=== PATIENT | female | born 1935 | race American Indian/Alaskan Native ===

== ENCOUNTER 2017-10-15 07:25 | Day surgery (SDC) | payer MEDICARE, BC ==
[2017-10-04 09:18] VITALS: BMI 32.5
[2017-10-15] MEDS ORDERED: Propofol 10 mg/ml Inj (20 ML) ONE (09:48)
[2017-10-15 11:19] VITALS: BP 146/89; PULSE 80; RESP 14; TEMP 97.4; O2SAT 98
== END 2017-10-15 11:52 | disposition home or self-care (01) ==
LOC: ENDO 07:25
PROVIDERS: ATTEND Internal Medicine Gastroenterology
DX: K92.2 Gastrointestinal hemorrhage, unspecified (principal); D12.3 Benign neoplasm of transverse colon; D12.5 Benign neoplasm of sigmoid colon; K57.30 Diverticulosis of large intestine without perforation or abscess without bleeding; K64.8 Other hemorrhoids
CPT/HCPCS: 45381; 45385; 88305; J2001; J2704; J7040

== ENCOUNTER 2018-09-27 15:26 | Emergency (ER) | payer BC, MEDICARE ==
[2018-09-27 15:30] VITALS: RESP 18; BMI 30.4
[2018-09-27] MEDS ORDERED: Sodium Chloride 0.9% 1,000 ML IV STA ×3 (15:46→20:00)
--- NOTE | 2018-09-27 15:53 | ED PDOC ---
Arrival/HPI - General Chief Complaint: Abdominal Pain Time Seen by Provider: 09/27/18 15:26 Historian: Patient - History of Present Illness Narrative History of Present Illness (Text): 09/27/18 15:49 An 82 year old female, whose past medical history includes hypertension, acid reflux and asthma, presents to the ED complaining of lower abdominal pain for the past 4 days. Patient reports associated constipation but that she had a bowel movement today. Patient notes black stools. Patient denies any fevers, chills, headache, dizziness, chest pain, shortness of breath, dyspnea on exertion, cough, nausea, vomiting, diarrhea, back pain, neck pain, or any other complaints. PMD: Dr. Elyssa Rivera Time/Duration: < week (4 days) Symptom Onset: Gradual Symptom Course: Unchanged Activities at Onset: Light Context: Home Past Medical History - Provider Review Nursing Documentation Reviewed: Yes - Tetanus Immunization Tetanus Immunization: Unknown - Cardiac Hx Hypertension: Yes Hx Pacemaker: No - Pulmonary Hx Respiratory Disorders: Yes Hx Asthma: Yes (As a child/young adult) - Neurological Hx Paralysis: No - HEENT Hx HEENT Disorder: Yes (wears eye glass) - Renal Hx Renal Disorder: No - Endocrine/Metabolic Hx Endocrine Disorders: No - Hematological/Oncological Hx Blood Transfusions: No Hx Blood Transfusion Reaction: No - Integumentary Hx Dermatological Disorder: No - Musculoskeletal/Rheumatological Hx Musculoskeletal Disorders: Yes - Gastrointestinal Hx Gastrointestinal Disorders: No - Genitourinary/Gynecological Hx Genitourinary Disorders: No - Psychiatric Hx Emotional Abuse: No Hx Physical Abuse: No Hx Substance Use: No - Anesthesia Hx Anesthesia Reactions: No Hx Malignant Hyperthermia: No - Suicidal Assessment Feels Threatened In Home Enviroment: No Family/Social History - Physician Review Nursing Documentation Reviewed: Yes Family/Social History: Unknown Family HX Smoking Status: Never Smoked Hx Alcohol Use: No Hx Substance Use: No Hx Substance Use Treatment: No Allergies/Home Meds Allergies/Adverse Reactions: Allergies Penicillins Allergy (Severe, Verified 09/28/18 11:39) ANAPHYLAXIS Home Medications: Home Meds Medication Instructions Recorded Confirmed Albuterol Sulfate [Proair Hfa] 0.09 mg IH PRN PRN 06/28/15 09/28/18 Fluticasone/Salmeterol [Advair Hfa 2 puff IH BID 06/28/15 09/28/18 45-21 Mcg Inhaler] Ascorbic Acid [Vitamin C] 500 mg PO DAILY 07/28/15 09/28/18 Cholecalciferol [Vitamin D] 1,000 iu PO DAILY 07/28/15 09/28/18 Psyllium Husk/Aspartame [Metamucil 3.4 gm PO DAILY 07/28/15 09/28/18 Fiber Singles Packet] Telmisartan/Hydrochlorothiazid 1 tab PO QAM 07/28/15 09/28/18 [Telmisartan-Hctz 80-25 mg Tab] Lansoprazole [Prevacid] 30 mg PO DAILY 10/04/17 09/28/18 Review of Systems - Physician Review All systems were reviewed & negative as marked: Yes - Review of Systems Constitutional: absent: Fatigue Eyes: absent: Vision Changes ENT: absent: Hearing Changes Respiratory: absent: SOB, Cough Cardiovascular: absent: Chest Pain Gastrointestinal: Abdominal Pain, Constipation. absent: Nausea, Vomiting Genitourinary Female: absent: Dysuria, Hematuria Musculoskeletal: absent: Back Pain, Neck Pain Skin: absent: Rash Neurological: absent: Headache, Dizziness Endocrine: absent: Diaphoresis Hemo/Lymphatic: absent: Adenopathy Psychiatric: absent: Anxiety, Depression Physical Exam Vital Signs Reviewed: Yes Vital Signs Temp Pulse Resp BP Pulse Ox 09/27/18 15:27 99.2 F 130 H 18 122/68 95 Temperature: Afebrile Blood Pressure: Normal Pulse: Tachycardic Respiratory Rate: Normal Appearance: Positive for: Well-Appearing, Non-Toxic, Comfortable Pain Distress: None Mental Status: Positive for: Alert and Oriented X 3 - Systems Exam Head: Present: Atraumatic, Normocephalic Pupils: Present: PERRL Extroacular Muscles: Present: EOMI Conjunctiva: Present: Normal Mouth: Present: Moist Mucous Membranes Respiratory/Chest: Present: Clear to Auscultation, Good Air Exchange. No: Respiratory Distress, Accessory Muscle Use Cardiovascular: Present: Regular Rate and Rhythm, Normal S1, S2. No: Murmurs Abdomen: Present: Tenderness (diffused tenderness of lower abdomen, greater than upper), Normal Bowel Sounds, Guarding. No: Distention, Peritoneal Signs, Rebound Rectal: Present: Other (Black stools; guaic negative; stove mounter my Scribe) Back: Present: Normal Inspection. No: CVA Tenderness, Midline Tenderness Upper Extremity: Present: Normal Inspection Lower Extremity: Present: Normal Inspection Neurological: Present: GCS=15, CN II-XII Intact, Speech Normal, Motor Func Grossly Intact, Normal Sensory Function Psychiatric: Present: Alert, Oriented x 3, Normal Insight, Normal Concentration Medical Decision Making ED Course and Treatment: 09/27/18 16:07 Impression: An 82 year old female presents to the ED complaining of lower abdominal pain. Differential Diagnosis included but are not limited to: Constipation vs GI Bleed Plan: -- VBG -- CT Abdomen/Pelvis -- EKG -- Labs -- Toradol -- Protonix injection -- IV Fluids -- Reassess and disposition Prior Visits: Notes and results from previous visits were reviewed. Patient was last seen in the emergency department on Progress Notes: EKG: Sinus tachycardia @ 118 bpm, LAD, Qwaves III, no ST elevations 09/27/18 16:55 Rectal exam chaperoned by scribe. WBC elevated at 17. LA normal. 09/27/18 20:20 Case signed out to Dr. Driscoll to f/u CT, reevaluate and disposition. - RAD Interpretation Radiology Orders: 09/27/18 15:46 ABD PELVIS PO & IV CONTRAST [CT] Stat - Scribe Statement The provider has reviewed the documentation as recorded by the Jacobo Gutierrez Provider Scribe Attestation: All medical record entries made by the Scribe were at my direction and personally dictated by me. I have reviewed the chart and agree that the record accurately reflects my personal performance of the history, physical exam, medical decision making, and the department course for this patient. I have also personally directed, reviewed, and agree with the discharge instructions and disposition. Disposition/Present on Arrival - Present on Arrival Any Indicators Present on Arrival: No History of DVT/PE: No History of Uncontrolled Diabetes: No Urinary Catheter: No History of Decub. Ulcer: No History Surgical Site Infection Following: None - Disposition Have Diagnosis and Disposition been Completed?: Yes Diagnosis: Abdominal pain Disposition: HOME/ ROUTINE Disposition Time: 19:00 Patient Problems: Current Active Problems Problem Status Onset ANNA (acute kidney injury) Acute Anemia Acute GI bleed Acute Leukocytosis Acute Right lower quadrant abdominal mass Acute Condition: IMPROVED Discharge Instructions (ExitCare): Acute Abdomen (Belly Pain), Adult (DC) Additional Instructions: SRINATH IRA, thank you for letting us take care of you today. The emergency medical care you received today was directed at your acute symptoms. If you were prescribed any medication, please fill it and take as directed. It may take several days for your symptoms to resolve. Return to the Emergency Department if your symptoms worsen, do not improve, or if you have any other problems. Please contact your doctor or call one of the physicians/clinics you have been referred to that are listed on the Patient Visit Information form that is included in your discharge packet. Bring any paperwork you were given at discharge with you along with any medications you are taking to your follow up visit. Our treatment cannot replace ongoing medical care by a primary care provider outside of the emergency department. Thank you for allowing the [facility] team to be part of your care today. Please take the medication as prescribed. Follow up with Dr. Rivera early next week. You may be referred back to the GI doctor. Please return to the emergency room if you have any concerns. Prescriptions: Ciprofloxacin [Cipro] 500 mg PO BID #14 tab Ibuprofen [Motrin] 600 mg PO Q6 PRN #20 tab PRN Reason: Pain, Moderate (4-7) Metronidazole [Flagyl] 500 mg PO Q8 #21 tablet Referrals: Elyssa Rivera MD [Family Provider] - Follow up with primary Forms: [employer] ([place])
[2018-09-27] MEDS ORDERED: Iohexol 240 (50 ml) ONE (16:18)
[2018-09-27 16:37] LABS: VENOUS BLOOD GAS BASE EXCESS 6.1 mmol/L (0.0-2.0); VENOUS BLOOD GAS PO2 30 mm/Hg (30-55); VENOUS BLOOD PH 7.42 (7.32-7.43)
[2018-09-27 16:39] LABS: BASO # 0.02 K/mm3 (0.0-2.0); BASO % 0.1 % (0.0-3.0); EOS % 0.1 % (1.5-5.0); HEMOGLOBIN 12.1 g/dL (12.0-16.0); LYMPH # 1.1 (1.2-3.4); LYMPH % 6.5 % (22.0-35.0); MEAN CELL VOLUME 92.1 fl (80.0-105.0); MEAN CORPUSCULAR HEMOGLOBIN 30.9 pg (25.0-35.0); MEAN CORPUSCULAR HGB CONC 33.5 g/dl (31.0-37.0); MEAN PLATELET VOLUME 10.6 fl (7.0-11.0); MONO # 0.8 (0.1-0.6); MONO % 4.9 % (1.0-6.0); RBC 3.92 10^6/uL (3.5-6.1); RED CELL DISTRIBUTION WIDTH 13.8 % (11.5-14.5); WHITE BLOOD COUNT 17.1 10^3/uL (4.5-11.0)
[2018-09-27 16:48] LABS: ALB/GLOB RATIO 0.9 (1.1-1.8)
[2018-09-27 16:52] LABS: INR 1.37; PROTHROMBIN TIME 15.2 SECONDS (9.4-12.5)
[2018-09-27 17:00] LABS: PARTIAL THROMBOPLASTIN TIME 37.1 Seconds (26.9-38.3)
[2018-09-27 17:03] LABS: ALBUMIN 3.4 g/dL (3.0-4.8); CALCIUM 8.9 mg/dL (8.4-10.5)
[2018-09-27] MEDS ORDERED: Potassium Chloride 20 mEq ER Tab PO STA (17:06)
[2018-09-27 19:04] VITALS: TEMP 99
[2018-09-27 21:58] VITALS: BP 125/87; PULSE 92; O2SAT 100
--- NOTE | 2018-09-27 22:28 | ED PDOC ---
Physical Exam Vital Signs Temp Pulse Resp BP Pulse Ox 09/27/18 21:40 92 H 18 125/87 100 09/27/18 19:03 99 F 89 18 124/59 L 98 09/27/18 17:26 79 18 125/85 98 09/27/18 15:27 99.2 F 130 H 18 122/68 95 Medical Decision Making ED Course and Treatment: 09/27/18 20:00 Case endorsed to me by Dr. Mar. Pending CT scan Abd/Pelvis, reevaluation, and disposition. 09/27/2018 20:26 Abd/Pelvis CT IMPRESSION: 1. 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 2. Diffuse diverticulosis involving the colon, especially severely involving cecum and ascending colon as well as descending colon and sigmoid. 3. Mild, nonspecific pancolitis. 4. Numerous small lymph nodes in the right lower quadrant. 5. Evidence of an amorphous tissue density in the right lower quadrant, which is centered on the terminal ileum as well as ileocecal valve measures approximately 8 x 5 cm and it has bilobed dumbbell shape appearance; this is suspicious for malignancy. Further evaluation with colonoscopy is recommended. 6. Small fat-containing left inguinal hernia and Fat-containing left Spigelian hernia. 7. Enlarged bulky uterus containing several partially calcified masses consistent with fibroids. 8. Small hiatal hernia. 9. Small pericardial effusion. 10. Consider additional evaluation with CT abdomen and pelvis with IV contrast. Dictator: Rubén Gonzalez MD 09/27/18 21:00 Upon reevaluation, patient is feeling better. Patient will follow-up with Dr. Rivera early next week for possible GI referral. Antibiotics and pain medications prescribed to patient. - Lab Interpretations Lab Results: pO2 30 mm/Hg (30-55) 09/27/18 16:25 VBG pH 7.42 (7.32-7.43) 09/27/18 16:25 VBG pCO2 49.0 (40-60) 09/27/18 16:25 VBG HCO3 31.8 mmol/l (21-28) H 09/27/18 16:25 VBG Total CO2 33.3 mmol.L (22-28) H 09/27/18 16:25 VBG O2 Sat (Calc) 58.8 % (40-65) 09/27/18 16:25 VBG Base Excess 6.1 mmol/L (0.0-2.0) H 09/27/18 16:25 VBG Potassium 3.3 mmol/L (3.6-5.2) L 09/27/18 16:25 Sodium 135.0 mmol/L (132-148) 09/27/18 16:25 Chloride 99.0 mmol/L (98-107) 09/27/18 16:25 Glucose 106 mg/dl (65-105) H 09/27/18 16:25 Lactate 1.2 mmol/L (0.7-2.1) 09/27/18 16:25 FiO2 21.0 % 09/27/18 16:25 PT 15.2 SECONDS (9.4-12.5) H 09/27/18 16:27 INR 1.37 09/27/18 16:27 APTT 37.1 Seconds (26.9-38.3) 09/27/18 16:27 Total Bilirubin 0.9 mg/dL (0.2-1.3) 09/27/18 16:27 AST 28 U/L (14-36) 09/27/18 16:27 ALT 14 U/L (7-56) 09/27/18 16:27 Alkaline Phosphatase 58 U/L (38-126) 09/27/18 16:27 Total Protein 7.0 g/dL (5.8-8.3) 09/27/18 16:27 Albumin 3.4 g/dL (3.0-4.8) 09/27/18 16:27 Globulin 3.6 gm/dL 09/27/18 16:27 Albumin/Globulin Ratio 0.9 (1.1-1.8) L 09/27/18 16:27 Lipase 25 U/L (23-300) 09/27/18 16:27 - RAD Interpretation Radiology Orders: 09/27/18 15:46 ABD & PELVIS PO CONTRAST ONLY [CT] Stat - Medication Orders Current Medication Orders: Discontinued Medications Sodium Chloride (Sodium Chloride 0.9%) 1,000 mls @ 999 mls/hr IV .Q1H1M STA Stop: 09/27/18 16:54 Last Admin: 09/27/18 16:41 Dose: 999 mls/hr eMAR Start Stop Document 09/27/18 16:41 CD (Rec: 09/27/18 16:41 CD [id number]) Intravenous Solution Start Date 09/27/18 Start Time 16:41 End Date 09/27/18 End time 17:42 Total Infusion Time 61 Sodium Chloride (Sodium Chloride 0.9%) 1,000 mls @ 999 mls/hr IV .Q1H1M STA Stop: 09/27/18 21:00 Ketorolac Tromethamine (Toradol) 30 mg IVP STAT STA Stop: 09/27/18 15:47 Last Admin: 09/27/18 16:41 Dose: 30 mg MAR Pain Assessment Document 09/27/18 16:41 CD (Rec: 09/27/18 16:42 CD [email or web address]) Pain Reassessment Is this a pain reassessment? No Sleep Is patient sleeping during reassessment? No Presence of Pain Presence of Pain Yes Pain Scale Used Protocol: PSCALES Pain Scale Used Numeric Description Intensity of Pain at present 7 Acceptable Level of Pain 3 IVP Administration Document 09/27/18 16:41 CD (Rec: 09/27/18 16:42 CD [id number]) Charges for Administration # of IVP Administrations 1 Pantoprazole Sodium (Protonix Inj) 40 mg IVP STAT STA Stop: 09/27/18 15:47 Last Admin: 09/27/18 16:41 Dose: 40 mg IVP Administration Document 09/27/18 16:41 CD (Rec: 09/27/18 16:41 CD [email or web address]) Charges for Administration # of IVP Administrations 1 Potassium Chloride (K-Dur 20 Meq Er Tab) 40 meq PO STAT STA Stop: 09/27/18 17:07 Last Admin: 09/27/18 17:19 Dose: 40 meq - Scribe Statement The provider has reviewed the documentation as recorded by the Jacobo Silva Provider Scribe Attestation: All medical record entries made by the Jacobo were at my direction and personally dictated by me. I have reviewed the chart and agree that the record accurately reflects my personal performance of the history, physical exam, medical decision making, and the department course for this patient. I have also personally directed, reviewed, and agree with the discharge instructions and disposition. Disposition/Present on Arrival - Present on Arrival Any Indicators Present on Arrival: No History of DVT/PE: No History of Uncontrolled Diabetes: No Urinary Catheter: No History of Decub. Ulcer: No History Surgical Site Infection Following: None - Disposition Have Diagnosis and Disposition been Completed?: Yes Diagnosis: Abdominal pain Disposition: HOME/ ROUTINE Disposition Time: 20:55 Condition: IMPROVED Discharge Instructions (ExitCare): Acute Abdomen (Belly Pain), Adult (DC) Additional Instructions: SRINATH ROTH, thank you for letting us take care of you today. The emergency medical care you received today was directed at your acute symptoms. If you were prescribed any medication, please fill it and take as directed. It may take several days for your symptoms to resolve. Return to the Emergency Department if your symptoms worsen, do not improve, or if you have any other problems. Please contact your doctor or call one of the physicians/clinics you have been referred to that are listed on the Patient Visit Information form that is included in your discharge packet. Bring any paperwork you were given at discharge with you along with any medications you are taking to your follow up visit. Our treatment cannot replace ongoing medical care by a primary care provider outside of the emergency department. Thank you for allowing the [facility] team to be part of your care today. Please take the medication as prescribed. Follow up with Dr. Rivera early next week. You may be referred back to the GI doctor. Please return to the emergency room if you have any concerns. Prescriptions: Ciprofloxacin [Cipro] 500 mg PO BID #14 tab Ibuprofen [Motrin] 600 mg PO Q6 PRN #20 tab PRN Reason: Pain, Moderate (4-7) Metronidazole [Flagyl] 500 mg PO Q8 #21 tablet Referrals: Elyssa Rivera MD [Family Provider] - Follow up with primary Forms: [employer] ([place])
--- NOTE | 2018-09-28 09:21 | CT ---
Date of service: 09/27/2018 PROCEDURE: CT Abdomen and Pelvis with contrast HISTORY: constip r/o obstruction r/o gi bleed COMPARISON: None available. TECHNIQUE: CT scan of the abdomen and pelvis was performed after administration of intravenous contrast. Oral contrast was administered. Coronal and sagittal reformatted images were obtained. Radiation dose: Total exam DLP = 873.03 mGy-cm. This CT exam was performed using one or more of the following dose reduction techniques: Automated exposure control, adjustment of the mA and/or kV according to patient size, and/or use of iterative reconstruction technique. FINDINGS: LOWER THORAX: The visualized lungs are clear. Mild cardiomegaly and small pericardial effusion LIVER: Normal in size. No ductal dilatation. There is a nonspecific coarse calcification in the right hepatic lobe. GALLBLADDER AND BILE DUCTS: Well distended. No calcified gallstones, wall thickening or pericholecystic fluid. PANCREAS: Normal in size. No gross lesion or ductal dilatation. SPLEEN: Normal in size and appearance. 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 KIDNEYS AND URETERS: Normal in size. No hydronephrosis or hydronephrosis. There is nonspecific perinephric fat stranding. VASCULATURE: No aortic aneurysm. There are advanced aortic atherosclerotic calcifications present. BOWEL: The small bowel loops are normal in caliber. There is extensive colonic diverticulosis worse in the left hemicolon without CT evidence for acute diverticulitis. No bowel wall thickening or obstruction. APPENDIX: The proximal appendix is normal in caliber however the entire appendix could not be definitely delineated. There is abnormal soft tissue at the base of the cecum and in the right lower quadrant extending to the right adnexa. This measures approximately 8.3 x 4.3 cm. There is significant fat stranding and inflammatory changes in the right lower quadrant PERITONEUM: No free fluid. No free air. LYMPH NODES: There are multiple subcentimeter lymph nodes in the right lower quadrant. BLADDER: Well distended and normal in appearance. REPRODUCTIVE: The uterus is anteverted and enlarged. There are multiple noncalcified and calcified fibroids with a dominant 3.8 x 3.2 cm calcified subserosal anterior wall fibroid. BONES: No acute fracture. Advanced multilevel degenerative disc disease. OTHER FINDINGS: There is a small fat containing inguinal hernia. There is a small hiatal hernia. There is a left spigelian hernia. IMPRESSION: 1. The proximal appendix is identified and normal in caliber however the entire appendix is not well delineated. There is abnormal soft tissue at the base of the cecum in the right lower quadrant and extending to the right adnexa with extensive surrounding inflammatory changes. Findings are nonspecific and could be related to acute appendicitis and phlegmon, right cecal/appendiceal malignancy and tubo-ovarian pathology including neoplasm. Correlation with pelvic ultrasound is recommended. 2. Fibroid uterus. 3. Extensive colonic diverticulosis without CT evidence for acute diverticulitis. A preliminary report was provided by [employer]. The final report is tagged to the PA review folder.
--- NOTE | 2018-09-29 07:15 | CARD ---
APPROVED REPORT Date of service: 09/27/2018 EKG Measurement Heart [id number] <Conclusion> Sinus tachycardia Possible Left atrial enlargement Left axis deviation Inferior infarct, age undetermined Abnormal ECG
== END 2018-09-27 21:40 | disposition home or self-care (01) ==
LOC: ED 15:26
DX: R10.9 Unspecified abdominal pain (principal); I10 Essential (primary) hypertension; K21.9 Gastro-esophageal reflux disease without esophagitis; J45.909 Unspecified asthma, uncomplicated
CPT/HCPCS: 74176; 80053; 82803; 83690; 83735; 85025; 85610; 85730; 93005; 96361; 96374; 96375; 99284; C9113; J1885; J7030; Q9966

== ENCOUNTER 2018-09-28 11:26 | Inpatient (IN) | payer MEDICARE ==
--- NOTE | 2018-09-28 11:31 | ED PDOC ---
Arrival/HPI - General Chief Complaint: Abdominal Pain Time Seen by Provider: 09/28/18 11:26 Historian: Patient - History of Present Illness Narrative History of Present Illness (Text): 09/28/18 11:33 82 year old female with PMH of hypertension, GERD, and asthma presents to the ED complaining of lower abdominal pain for the past 5 days. Patient was seen in emergency department yesterday, and discharged home on Flagyl. CT abd/pelvis showed pancolitis and was negative for appendicitis at that time per [facility]. Official CT read this morning showed a right sided mass/appendicitis and recommended pelvic ultrasound for further evaluation. Patient states she feels better than yesterday but is still having intermittent, generalized abdominal pain. Patient notes black stools. Last BM yesterday in ED. Last colonoscopy September 2017. Patient denies any fevers, chills, headache, dizziness, chest pain, shortness of breath, dyspnea on exertion, cough, nausea, vomiting, diarrhea, back pain, neck pain, or any other complaints. PMD: Dr. Elyssa Rivera GI: Dr. Campos Past Medical History - Provider Review Nursing Documentation Reviewed: Yes - Tetanus Immunization Tetanus Immunization: Unknown - Cardiac Hx Hypertension: Yes Hx Pacemaker: No - Pulmonary Hx Respiratory Disorders: Yes Hx Asthma: Yes (As a child/young adult) - Neurological Hx Paralysis: No - HEENT Hx HEENT Disorder: Yes (wears eye glass) - Renal Hx Renal Disorder: No - Endocrine/Metabolic Hx Endocrine Disorders: No - Hematological/Oncological Hx Blood Transfusions: No Hx Blood Transfusion Reaction: No - Integumentary Hx Dermatological Disorder: No - Musculoskeletal/Rheumatological Hx Musculoskeletal Disorders: Yes - Gastrointestinal Hx Gastrointestinal Disorders: No - Genitourinary/Gynecological Hx Genitourinary Disorders: No - Psychiatric Hx Emotional Abuse: No Hx Physical Abuse: No Hx Substance Use: No - Anesthesia Hx Anesthesia Reactions: No Hx Malignant Hyperthermia: No - Suicidal Assessment Feels Threatened In Home Enviroment: No Family/Social History - Physician Review Nursing Documentation Reviewed: Yes Family/Social History: No Known Family HX Smoking Status: Never Smoked Hx Alcohol Use: No Hx Substance Use: No Hx Substance Use Treatment: No Allergies/Home Meds Allergies/Adverse Reactions: Allergies Penicillins Allergy (Severe, Verified 09/28/18 11:39) ANAPHYLAXIS Home Medications: Home Meds Medication Instructions Recorded Confirmed Albuterol Sulfate [Proair Hfa] 0.09 mg IH PRN PRN 06/28/15 09/28/18 Fluticasone/Salmeterol [Advair Hfa 2 puff IH BID 06/28/15 09/28/18 45-21 Mcg Inhaler] Ascorbic Acid [Vitamin C] 500 mg PO DAILY 07/28/15 09/28/18 Cholecalciferol [Vitamin D] 1,000 iu PO DAILY 07/28/15 09/28/18 Psyllium Husk/Aspartame [Metamucil 3.4 gm PO DAILY 07/28/15 09/28/18 Fiber Singles Packet] Telmisartan/Hydrochlorothiazid 1 tab PO QAM 07/28/15 09/28/18 [Telmisartan-Hctz 80-25 mg Tab] Lansoprazole [Prevacid] 30 mg PO DAILY 10/04/17 09/28/18 Review of Systems - Review of Systems Constitutional: Normal. absent: Fevers Eyes: Normal. absent: Vision Changes ENT: Normal. absent: Sore Throat, Sinus Congestion Respiratory: Normal. absent: SOB, Cough Cardiovascular: Normal. absent: Chest Pain, Palpitations, Syncope Gastrointestinal: Abdominal Pain, Appetite Changes. absent: Stool Changes, Nausea, Vomiting Genitourinary Female: Normal. absent: Dysuria, Frequency, Vaginal Bleeding, Vaginal Discharge Musculoskeletal: Normal. absent: Back Pain, Neck Pain Skin: Normal. absent: Rash Neurological: Normal. absent: Headache, Dizziness Physical Exam Vital Signs Reviewed: Yes Temperature: Afebrile Blood Pressure: Normal Pulse: Tachycardic Respiratory Rate: Normal Appearance: Positive for: Well-Appearing, Non-Toxic, Comfortable Pain Distress: None Mental Status: Positive for: Alert and Oriented X 3 - Systems Exam Head: Present: Atraumatic, Normocephalic Pupils: Present: PERRL Extroacular Muscles: Present: EOMI Conjunctiva: Present: Normal Mouth: Present: Moist Mucous Membranes Neck: Present: Normal Range of Motion. No: Meningeal Signs Respiratory/Chest: Present: Clear to Auscultation, Good Air Exchange. No: Respiratory Distress, Accessory Muscle Use Cardiovascular: Present: Normal S1, S2, Peripheal Pulses Present, Tachycardic Abdomen: Present: Tenderness (generalized, worse epigastric and RLQ), Normal Bowel Sounds. No: Distention, Peritoneal Signs Rectal: Present: Occult Blood, Melena, Hemorrhoids (nonthrombosed), Normal Rectal Tone. No: Rectal Tenderness, Gross Blood Back: Present: Normal Inspection. No: CVA Tenderness Upper Extremity: Present: Normal Inspection, Normal ROM, NORMAL PULSES, Neurovascularly Intact, Capillary Refill < 2s. No: Cyanosis, Edema, Temperature Abnormalties Lower Extremity: Present: Normal Inspection, NORMAL PULSES, Normal ROM, Neurovascularly Intact, Capillary Refill < 2 s. No: Edema, Temperature Abnormalties Neurological: Present: GCS=15, CN II-XII Intact, Speech Normal, Motor Func Grossly Intact, Normal Sensory Function, Gait Normal Skin: Present: Warm, Dry, Normal Color. No: Rashes Psychiatric: Present: Alert, Oriented x 3, Normal Insight, Normal Concentration, Normal Affect, Normal Mood Medical Decision Making ED Course and Treatment: CT Abd/Pelvis with PO contrast from 09/27/18 - FINDINGS: LOWER THORAX: The visualized lungs are clear. Mild cardiomegaly and small pericardial effusion LIVER: Normal in size. No ductal dilatation. There is a nonspecific coarse calcification in the right hepatic lobe. GALLBLADDER AND BILE DUCTS: Well distended. No calcified gallstones, wall thickening or pericholecystic fluid. PANCREAS: Normal in size. No gross lesion or ductal dilatation. SPLEEN: Normal in size and appearance. 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 KIDNEYS AND URETERS: Normal in size. No hydronephrosis or hydronephrosis. There is nonspecific perinephric fat stranding. VASCULATURE: No aortic aneurysm. There are advanced aortic atherosclerotic calcifications present. BOWEL: The small bowel loops are normal in caliber. There is extensive colonic div erticulosis worse in the left hemicolon without CT evidence for acute diverticulitis. No bowel wall thickening or obstruction. APPENDIX: The proximal appendix is normal in caliber however the entire appendix could not be definitely delineated. There is abnormal soft tissue at the base of the cecum and in the right lower quadrant extending to the right adnexa. This measures approximately 8.3 x 4.3 cm. There is significant fat stranding and inflammatory changes in the right lower quadrant PERITONEUM: No free fluid. No free air. LYMPH NODES: There are multiple subcentimeter lymph nodes in the right lower quadrant. BLADDER: Well distended and normal in appearance. REPRODUCTIVE: The uterus is anteverted and enlarged. There are multiple noncalcified and calcified fibroids with a dominant 3.8 x 3.2 cm calcified subserosal anterior wall fibroid. BONES: No acute fracture. Advanced multilevel degenerative disc disease. OTHER FINDINGS: There is a small fat containing inguinal hernia. There is a small hiatal hernia. There is a left spigelian hernia. IMPRESSION: 1. The proximal appendix is identified and normal in caliber however the entire appendix is not well delineated. There is abnormal soft tissue at the base of the cecum in the right lower quadrant and extending to the right adnexa with extensive surrounding inflammatory changes. Findings are nonspecific and could be related to acute appendicitis and phlegmon, right cecal/appendiceal malignancy and tubo-ovarian pathology including neoplasm. Correlation with pelvic ultrasound is recommended. 2. Fibroid uterus. 3. Extensive colonic diverticulosis without CT evidence for acute diverticulitis. Initial Plan: * Labs * UA * Transvaginal US * Surgical Consult 12:11 Spoke with surgical scheduler who will come to emergency department and evaluate patient under Dr. Garrido. 12:21 Bloodwork reviewed. VBG and CMP stable from yesterday, CBC shows decrease in WBC from 17 to 14. 12:[address] Garcia, admitting for Dr. Rivera who accepted patient for inpatient admission with diagnosis of ANNA, RLQ mass, Leukocytosis. Requests Dr. Garrido for surgical consult. Pending urine, US and CXR. 13:30 Ultrasound shows fibroids but no visible ovarian mass. CXR unremarkable. 13:35 hemoccult POSITIVE on rectal exam. Dark brown stool. No rectal tenderness, normal tone. Nonthrombosed hemorrhoids noted. Call placed to update Dr. Garcia. Pt upgraded to telemetry. H/H trending down compared to yesterday's visit. Pt continues to be mildly tachycardic. 09/27/18: 12.1/36.1 09/28/18: 11.4/34.8 - Lab Interpretations Lab Results: 09/28/18 11:54 09/28/18 11:54 Lab Results 09/28/18 13:37: Urine Color Yellow, Urine Appearance Clear, Urine pH 6.0, Ur S pecific Winifred 1.015, Urine Protein Trace H, Urine Glucose (UA) Negative, Urine Ketones Negative, Urine Blood Trace-lysed H, Urine Nitrate Negative, Urine Bilirubin Negative, Urine Urobilinogen 0.2, Ur Leukocyte Esterase Trace H, Urine RBC 0 - 2, Urine WBC 0 - 2, Ur Epithelial Cells 1 - 3, Urine Bacteria Small 09/28/18 11:54: Sodium 136, Chloride 102, Potassium 3.9, Carbon Dioxide 28, Anion Gap 11, BUN 21, Creatinine 1.4 H, Est GFR ( Amer) 43, Est GFR (Non- Af Amer) 36, Random Glucose 98, Calcium 8.5, Total Bilirubin 0.9, AST 27, ALT 12, Alkaline Phosphatase 61, Troponin I < 0.01, Total Protein 6.7, Albumin 3.2, Globulin 3.5, Albumin/Globulin Ratio 0.9 L, Lipase 28 09/28/18 11:54: PT 16.4 H, INR 1.45, APTT 37.8 09/28/18 11:54: WBC 14.3 H, RBC 3.75, Hgb 11.4 L, Hct 34.8 L, MCV 92.8, MCH 30.4, MCHC 32.8, RDW 13.7, Plt Count 297, MPV 10.6, Neut % (Auto) 89.8 H, Lymph % (Auto) 5.3 L, [place] % (Auto) 4.6, Eos % (Auto) 0.2 L, Baso % (Auto) 0.1, Lymph # (Auto) 0.8 L, [place] # (Auto) 0.7 H, Eos # (Auto) 0.0, Baso # (Auto) 0.02, Absolute Neuts (auto) 12.79 H 09/28/18 11:50: pO2 26 L, VBG pH 7.37, VBG pCO2 47.0, VBG HCO3 27.2, VBG Total CO2 28.6 H, VBG O2 Sat (Calc) 47.6, VBG Base Excess 1.3, VBG Potassium 3.8, Sodium 135.0, Chloride 103.0, Glucose 98, Lactate 1.2, FiO2 21.0, Venous Blood Potassium 3.8 I have reviewed the lab results: Yes - RAD Interpretation Narrative RAD Interpretations (Text): 09/28/18 13:37 CXR: FINDINGS: LUNGS: The lungs are well inflated and clear. PLEURA: No pleural effusions or pneumothorax. CARDIOVASCULAR: The heart is normal in size. There are aortic atherosclerotic calcifications present. OSSEOUS STRUCTURES: Within normal limits for the patient's age. VISUALIZED UPPER ABDOMEN: Normal. OTHER FINDINGS: None. IMPRESSION: No active pulmonary disease. Transvaginal US: FINDINGS: UTERUS: Measures 7.3 x 2.9 x 4.0 cm. Anteverted and normal in size. There is a 1.8 x 1.2 x 1.9 cm anterior wall submucosal fibroid and 1.9 x 1.0 x 0.9 cm partially calcified fundal fibroid. ENDOMETRIUM: Measures 5.0 mm in diameter. Unremarkable. CERVIX: No cervical abnormality identified. RIGHT OVARY: Measures 4.3 x 1.9 x 2.0 cm. No solid mass. Normal flow. LEFT OVARY: Measures 2.69 x 1.69 x 2.5 cm. No solid mass. Normal flow. FREE FLUID: No significant free fluid noted. OTHER FINDINGS: None. IMPRESSION: Fibroid uterus with a dominant 1.9 cm submucosal anterior wall fibroid. No evidence for ovarian cyst or mass. Lumber Driver: Radiologist Disposition/Present on Arrival - Present on Arrival Any Indicators Present on Arrival: No History of DVT/PE: No History of Uncontrolled Diabetes: No Urinary Catheter: No History of Decub. Ulcer: No History Surgical Site Infection Following: None - Disposition Have Diagnosis and Disposition been Completed?: Yes Diagnosis: ANNA (acute kidney injury), Leukocytosis, GI bleed, Right lower quadrant abdominal mass, Anemia Disposition: HOSPITALIZED Disposition Time: 12:55 Patient Plan: Admission Patient Problems: Current Active Problems Problem Status Onset ANNA (acute kidney injury) Acute Anemia Acute GI bleed Acute Leukocytosis Acute Right lower quadrant abdominal mass Acute Condition: STABLE
[2018-09-28 11:43] VITALS: BMI 31.3
[2018-09-28] MEDS ORDERED: Sodium Chloride 0.9% 1,000 ML IV SCH (11:45)
[2018-09-28] MEDS ORDERED: Sodium Chloride 0.9% 1,000 ML IV STA ×2 (11:45→13:12)
[2018-09-28 11:59] LABS: VENOUS BLOOD GAS BASE EXCESS 1.3 mmol/L (0.0-2.0); VENOUS BLOOD GAS PO2 26 mm/Hg (30-55); VENOUS BLOOD PH 7.37 (7.32-7.43)
[2018-09-28 12:08] LABS: BASO # 0.02 K/mm3 (0.0-2.0); BASO % 0.1 % (0.0-3.0); EOS % 0.2 % (1.5-5.0); HEMOGLOBIN 11.4 g/dL (12.0-16.0); LYMPH # 0.8 (1.2-3.4); LYMPH % 5.3 % (22.0-35.0); MEAN CELL VOLUME 92.8 fl (80.0-105.0); MEAN CORPUSCULAR HEMOGLOBIN 30.4 pg (25.0-35.0); MEAN CORPUSCULAR HGB CONC 32.8 g/dl (31.0-37.0); MEAN PLATELET VOLUME 10.6 fl (7.0-11.0); MONO # 0.7 (0.1-0.6); MONO % 4.6 % (1.0-6.0); RBC 3.75 10^6/uL (3.5-6.1); RED CELL DISTRIBUTION WIDTH 13.7 % (11.5-14.5); WHITE BLOOD COUNT 14.3 10^3/uL (4.5-11.0)
[2018-09-28 12:20] LABS: ALB/GLOB RATIO 0.9 (1.1-1.8); ALBUMIN 3.2 g/dL (3.0-4.8); ALT/SGPT 12 U/L (7-56); AST/SGOT 27 U/L (14-36); BLOOD UREA NITROGEN 21 mg/dL (7-21); CALCIUM 8.5 mg/dL (8.4-10.5); GFR NON-AFRICAN AMERICAN 36; LIPASE 28 U/L (23-300)
[2018-09-28 12:24] LABS: INR 1.45; PARTIAL THROMBOPLASTIN TIME 37.8 Seconds (26.9-38.3); PROTHROMBIN TIME 16.4 SECONDS (9.4-12.5)
[2018-09-28 12:32] LABS: TROPONIN I < 0.01 ng/mL
--- NOTE | 2018-09-28 12:38 | CP.PCM.CON ---
<Dillan Mccoy D - Last Filed: 09/28/18 13:01> History of Present Illness - History of Present Illness History of Present Illness: SURGERY CONSULT NOTE FOR DR. GARRIDO Reason: Abnormal CT findings 82F presents with abdominal pain which started 5 days ago. 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 Her pain she says is not worse and is currently tolerable. She was called back to hospital because in-house hospital read of CT scan found new findings from overnight read. Patient states she has never had this pain before in the past, she denies nausea, vomiting, fevers or chills. She admits to constipation prior which has resolved. She states her stools have been dark colored recently. She has a history of GI bleed last year which she had colonoscopy for that found two polyps in the sigmoid and transverse colon both tubular adenoma on pathology. PMH: HTN, GERD, Asthma PSH: Breast biospies Social: denies tobacco, alcohol or illicit drug use Allergies: Penicillins Past Patient History - Tetanus Immunizations Tetanus Immunization: Unknown - Past Social History Smoking Status: Never Smoked - CARDIAC Hx Hypertension: Yes Hx Pacemaker: No - PULMONARY Hx Respiratory Disorders: Yes Hx Asthma: Yes (As a child/young adult) - NEUROLOGICAL Hx Paralysis: No - HEENT Hx HEENT Problems: Yes (wears eye glass) - RENAL Hx Chronic Kidney Disease: No - ENDOCRINE/METABOLIC Hx Endocrine Disorders: No - HEMATOLOGICAL/ONCOLOGICAL Hx Blood Transfusions: No Hx Blood Transfusion Reaction: No - INTEGUMENTARY Hx Dermatological Problems: No - MUSCULOSKELETAL/RHEUMATOLOGICAL Hx Musculoskeletal Disorders: Yes - GASTROINTESTINAL Hx Gastrointestinal Disorders: No - GENITOURINARY/GYNECOLOGICAL Hx Genitourinary Disorders: No - PSYCHIATRIC Hx Emotional Abuse: No Hx Physical Abuse: No Hx Substance Use: No - SURGICAL HISTORY Hx Surgeries: Yes - ANESTHESIA Hx Anesthesia Reactions: No Hx Malignant Hyperthermia: No Meds Allergies/Adverse Reactions: Allergies Allergy/AdvReac Type Severity Reaction Status Date / Time Penicillins Allergy Severe ANAPHYLAXIS Verified 09/28/18 11:39 - Medications Medications: Current Medications Acetaminophen (Tylenol 325mg Tab) 650 mg PO STAT STA Stop: 09/28/18 12:38 Sodium Chloride (Sodium Chloride 0.9%) 1,000 mls @ 150 mls/hr IV .Q6H40M [facility] Last Admin: 09/28/18 11:57 Dose: 150 mls/hr Physical Exam - Constitutional Appears: Non-toxic, No Acute Distress - Eye Exam Eye Exam: EOMI, PERRL - ENT Exam ENT Exam: Mucous Membranes Moist - Respiratory Exam Respiratory Exam: Clear to Auscultation Bilateral, NORMAL BREATHING PATTERN - Cardiovascular Exam Cardiovascular Exam: REGULAR RHYTHM, +S1, +S2 - GI/Abdominal Exam GI & Abdominal Exam: Soft, Tenderness (mild/moderate in RLQ). absent: Distended, Firm, Guarding, Rebound, Rigid - Extremities Exam Extremities exam: Negative for: pedal edema, tenderness - Neurological Exam Neurological exam: Alert, Oriented x3 - Psychiatric Exam Psychiatric exam: Normal Affect, Normal Mood - Skin Skin Exam: Dry, Intact, Normal Color, Warm Results - Vital Signs Recent Vital Signs: Last Vital Signs Temp 98.7 F 09/28/18 11:40 Pulse 102 H 09/28/18 12:15 Resp 17 09/28/18 12:15 BP 132/64 09/28/18 12:15 Pulse Ox 98 09/28/18 12:15 - Labs Result Diagrams: 09/28/18 11:54 09/28/18 11:54 Labs: Laboratory Results - last 24 hr 09/28/18 09/28/18 09/28/18 11:50 11:54 11:54 WBC 14.3 H RBC 3.75 Hgb 11.4 L Hct 34.8 L MCV 92.8 MCH 30.4 MCHC 32.8 RDW 13.7 Plt Count 297 MPV 10.6 Neut % (Auto) 89.8 H Lymph % (Auto) 5.3 L [place] % (Auto) 4.6 Eos % (Auto) 0.2 L Baso % (Auto) 0.1 Lymph # (Auto) 0.8 L [place] # (Auto) 0.7 H Eos # (Auto) 0.0 Baso # (Auto) 0.02 Absolute Neuts (auto) 12.79 H PT 16.4 H INR 1.45 APTT 37.8 pO2 26 L VBG pH 7.37 VBG pCO2 47.0 VBG HCO3 27.2 VBG Total CO2 28.6 H VBG O2 Sat (Calc) 47.6 VBG Base Excess 1.3 VBG Potassium 3.8 Sodium 135.0 Chloride 103.0 Glucose 98 Lactate 1.2 FiO2 21.0 Potassium Carbon Dioxide Anion Gap BUN Creatinine Est GFR ( Amer) Est GFR (Non-Af Amer) Random Glucose Calcium Total Bilirubin AST ALT Alkaline Phosphatase Troponin I Total Protein Albumin Globulin Albumin/Globulin Ratio Lipase Venous Blood Potassium 3.8 09/28/18 11:54 WBC RBC Hgb Hct MCV MCH MCHC RDW Plt Count MPV Neut % (Auto) Lymph % (Auto) [place] % (Auto) Eos % (Auto) Baso % (Auto) Lymph # (Auto) [place] # (Auto) Eos # (Auto) Baso # (Auto) Absolute Neuts (auto) PT INR APTT pO2 VBG pH VBG pCO2 VBG HCO3 VBG Total CO2 VBG O2 Sat (Calc) VBG Base Excess VBG Potassium Sodium 136 Chloride 102 Glucose Lactate FiO2 Potassium 3.9 Carbon Dioxide 28 Anion Gap 11 BUN 21 Creatinine 1.4 H Est GFR ( Amer) 43 Est GFR (Non-Af Amer) 36 Random Glucose 98 Calcium 8.5 Total Bilirubin 0.9 AST 27 ALT 12 Alkaline Phosphatase 61 Troponin I < 0.01 Total Protein 6.7 Albumin 3.2 Globulin 3.5 Albumin/Globulin Ratio 0.9 L Lipase 28 Venous Blood Potassium Assessment & Plan - Assessment and Plan (Free Text) Assessment: 82F with abdominal pain 2/2 nonspecific mass in the right lower quadrant Plan: - NPO - IVF - Pain control - F/u Pelvis ultrasound - F/u UA - Patient may require GI consult, colonoscopy - Further recs will discuss with Dr. Radhika Mccoy, PGY3 <Chaz Garrido - Last Filed: 10/02/18 19:34> Meds - Medications Medications: Current Medications Acetaminophen (Tylenol 325mg Tab) 650 mg PO Q6H PRN PRN Reason: Fever >100.4 F Albuterol/Ipratropium (Duoneb 3 Mg/0.5 Mg (3 Ml) Ud) 3 ml IH [id number] PRN PRN Reason: Shortness of Breath Last Admin: 10/02/18 16:27 Dose: 3 ml Ascorbic Acid (Vitamin C 500 Mg Tab) 500 mg PO DAILY [facility] Last Admin: 10/02/18 10:51 Dose: 500 mg Cholecalciferol (Vitamin D) 1,000 intlu PO DAILY [facility] Last Admin: 10/02/18 10:51 Dose: 1,000 intlu Docusate Sodium (Colace) 100 mg PO DAILY [facility] Last Admin: 10/02/18 10:51 Dose: 100 mg Hydrochlorothiazide (Hydrodiuril) 25 mg PO DAILY [facility] Last Admin: 10/02/18 10:51 Dose: 25 mg Meropenem (Merrem Iv 1 Gm Premix) 1 gm in 50 mls @ 100 mls/hr IVPB Q12 FELIX; Protocol Stop: 10/07/18 22:01 Last Admin: 10/02/18 10:51 Dose: 100 mls/hr Losartan Potassium (Cozaar) 25 mg PO DAILY [facility] Last Admin: 10/02/18 10:51 Dose: 25 mg Metoprolol Tartrate (Lopressor) 5 mg IVP Q6H PRN PRN Reason: HR >110 Last Admin: 10/02/18 10:52 Dose: 5 mg Ondansetron HCl (Zofran Inj) 4 mg IVP Q6H PRN PRN Reason: Nausea/Vomiting Results - Vital Signs Recent Vital Signs: Last Vital Signs Temp 97.6 F 10/02/18 16:42 Pulse 101 H 10/02/18 18:00 Resp 20 10/02/18 16:42 BP 132/71 10/02/18 16:42 Pulse Ox 98 10/02/18 16:42 - Labs Result Diagrams: 10/01/18 07:45 10/01/18 07:45 Assessment & Plan - Assessment and Plan (Free Text) Plan: Patient was seen, evaluated and examined by me at the bedside. I agree with assessment and plan as stated in the resident's note.
[2018-09-28] MEDS ORDERED: HYDROmorphone 0.5 mg/0.5 ml ISec IVP PRN (13:12)
--- NOTE | 2018-09-28 13:27 | RAD ---
Date of service: 09/28/2018 HISTORY: abd pain COMPARISON: 10/04/2013 FINDINGS: LUNGS: The lungs are well inflated and clear. PLEURA: No pleural effusions or pneumothorax. CARDIOVASCULAR: The heart is normal in size. There are aortic atherosclerotic calcifications present. OSSEOUS STRUCTURES: Within normal limits for the patient's age. VISUALIZED UPPER ABDOMEN: Normal. OTHER FINDINGS: None. IMPRESSION: No active pulmonary disease.
[2018-09-28 13:45] LABS: URINE BILIRUBIN NEGATIVE (NEGATIVE); URINE BLOOD TRACE-LYSED (NEGATIVE); URINE GLUCOSE (UA) NEGATIVE (NEGATIVE); URINE LEUKOCYTE ESTERASE TRACE Leu/uL (NEGATIVE); URINE PROTEIN TRACE mg/dL (<30 mg/dL); URINE UROBILINOGEN 0.2 E.U./dL (<1 E.U./dL)
[2018-09-28 13:46] LABS: URINE APPEARANCE CLEAR (CLEAR); URINE COLOR YELLOW (YELLOW)
[2018-09-28 13:56] LABS: URINE RBC 0 - 2 /hpf (0-2); URINE WBC 0 - 2 /hpf (0-6)
[2018-09-28 13:57] LABS: URINE BACTERIA SMALL /hpf
--- NOTE | 2018-09-28 14:00 | US ---
Date of service: 09/28/2018 HISTORY: followup, RLQ mass COMPARISON: None available. TECHNIQUE: Transvaginal pelvic ultrasound was performed. FINDINGS: UTERUS: Measures 7.3 x 2.9 x 4.0 cm. Anteverted and normal in size. There is a 1.8 x 1.2 x 1.9 cm anterior wall submucosal fibroid and 1.9 x 1.0 x 0.9 cm partially calcified fundal fibroid. ENDOMETRIUM: Measures 5.0 mm in diameter. Unremarkable. CERVIX: No cervical abnormality identified. RIGHT OVARY: Measures 4.3 x 1.9 x 2.0 cm. No solid mass. Normal flow. LEFT OVARY: Measures 2.69 x 1.69 x 2.5 cm. No solid mass. Normal flow. FREE FLUID: No significant free fluid noted. OTHER FINDINGS: None. IMPRESSION: Fibroid uterus with a dominant 1.9 cm submucosal anterior wall fibroid. No evidence for ovarian cyst or mass.
[2018-09-28] MEDS: Sodium Chloride 0.9% 1,000 ML IV SCH ×2 (17:48→20:10)
[2018-09-28] MEDS: Meropenem IV 1 gm in NS 1 GM/50 ML BAG IVPB SCH (21:40)
[2018-09-29] MEDS: Sodium Chloride 0.9% 1,000 ML IV SCH ×3 (05:19→10:25)
[2018-09-29 06:36] LABS: HEMOGLOBIN 10.5 g/dL (12.0-16.0); MEAN CELL VOLUME 93.2 fl (80.0-105.0); MEAN CORPUSCULAR HEMOGLOBIN 29.7 pg (25.0-35.0); MEAN CORPUSCULAR HGB CONC 31.8 g/dl (31.0-37.0); MEAN PLATELET VOLUME 10.8 fl (7.0-11.0); RBC 3.54 10^6/uL (3.5-6.1); RED CELL DISTRIBUTION WIDTH 13.9 % (11.5-14.5); WHITE BLOOD COUNT 12.3 10^3/uL (4.5-11.0)
[2018-09-29 07:19] LABS: ALB/GLOB RATIO 0.9 (1.1-1.8); ALBUMIN 3.1 g/dL (3.0-4.8); CALCIUM 8.6 mg/dL (8.4-10.5)
--- NOTE | 2018-09-29 08:46 | CP.PCM.PN ---
<Sidney Jules - Last Filed: 09/29/18 08:43> Subjective - Date & Time of Evaluation Date of Evaluation: 09/29/18 Time of Evaluation: 08:43 - Subjective Subjective: PGY1 General Surgery Progress Note for Dr. Garrido Patient seen and evaluated at bedside this morning. No acute events overnight. No new complaints. Patient reports her pain resolved. Patient otherwise denies fever, chills, nausea, vomiting, chest pain, shortness of breath, numbness/tingling, and/or headache. Patient currently NPO and on IVFs. Objective - Vital Signs/Intake and Output Vital Signs (last 24 hours): Temp Pulse Resp BP Pulse Ox 98.5 F 117 H 18 151/75 H 95 09/29/18 06:00 09/29/18 06:00 09/29/18 06:00 09/29/18 06:00 09/29/18 06:00 Intake and Output: 09/29/18 09/29/18 06:59 18:59 Intake Total 1030 Output Total 3 Balance 1027 - Medications Medications: Current Medications Docusate Sodium (Colace) 100 mg PO DAILY [facility] Last Admin: 09/28/18 13:41 Dose: 100 mg Hydromorphone HCl (Dilaudid) 0.5 mg IVP Q6H PRN PRN Reason: Pain, severe (8-10) Meropenem (Merrem Iv 1 Gm Premix) 1 gm in 50 mls @ 100 mls/hr IVPB Q12 [facility]; Protocol Stop: 10/07/18 22:01 Last Admin: 09/28/18 21:40 Dose: 100 mls/hr Sodium Chloride (Sodium Chloride 0.9%) 1,000 mls @ 75 mls/hr IV .[id number] [facility] Pantoprazole Sodium (Protonix Inj) 40 mg IVP DAILY [facility] Last Admin: 09/28/18 13:41 Dose: 40 mg - Labs Labs: 09/29/18 06:00 09/29/18 06:00 PT 16.4 SECONDS (9.4-12.5) H 09/28/18 11:54 INR 1.45 09/28/18 11:54 APTT 37.8 Seconds (26.9-38.3) 09/28/18 11:54 - Additional Findings Additional findings: - Constitutional Appears: Non-toxic, No Acute Distress - Eye Exam Eye Exam: EOMI, PERRL - ENT Exam ENT Exam: Mucous Membranes Moist - Respiratory Exam Respiratory Exam: Clear to Auscultation Bilateral, NORMAL BREATHING PATTERN - Cardiovascular Exam Cardiovascular Exam: REGULAR RHYTHM, +S1, +S2 - GI/Abdominal Exam GI & Abdominal Exam: Soft. absent: Tenderness, Distended, Firm, Guarding, Rebound, Rigid - Extremities Exam Extremities exam: Negative for: pedal edema, tenderness - Neurological Exam Neurological exam: Alert, Oriented x3 - Psychiatric Exam Psychiatric exam: Normal Affect, Normal Mood - Skin Skin Exam: Dry, Intact, Normal Color, Warm Assessment and Plan - Assessment and Plan (Free Text) Assessment: 82F with abdominal pain 2/2 nonspecific mass in the right lower quadrant Plan: - Currently NPO; pending Dental Coordinator consult and f/u GI recommendations - Continue IVF - Pain control - TVUS: Fibroid uterus with dominant 1.9 submucosal anterior wall fibroid; no evidence for ovarian cyst or mass - Abnormal UA; asymptomatic; Continue Merrem IV x10 days; per ID orders - Further recs will discuss with Dr. Radhika Jules PGY1 <Chaz Garrido - Last Filed: 10/02/18 19:32> Objective - Vital Signs/Intake and Output Vital Signs (last 24 hours): Temp Pulse Resp BP Pulse Ox 97.6 F 101 H 20 132/71 98 10/02/18 16:42 10/02/18 18:00 10/02/18 16:42 10/02/18 16:42 10/02/18 16:42 - Medications Medications: Current Medications Acetaminophen (Tylenol 325mg Tab) 650 mg PO Q6H PRN PRN Reason: Fever >100.4 F Albuterol/Ipratropium (Duoneb 3 Mg/0.5 Mg (3 Ml) Ud) 3 ml IH [id number] PRN PRN Reason: Shortness of Breath Last Admin: 10/02/18 16:27 Dose: 3 ml Ascorbic Acid (Vitamin C 500 Mg Tab) 500 mg PO DAILY [facility] Last Admin: 10/02/18 10:51 Dose: 500 mg Cholecalciferol (Vitamin D) 1,000 intlu PO DAILY [facility] Last Admin: 10/02/18 10:51 Dose: 1,000 intlu Docusate Sodium (Colace) 100 mg PO DAILY [facility] Last Admin: 10/02/18 10:51 Dose: 100 mg Hydrochlorothiazide (Hydrodiuril) 25 mg PO DAILY [facility] Last Admin: 10/02/18 10:51 Dose: 25 mg Meropenem (Merrem Iv 1 Gm Premix) 1 gm in 50 mls @ 100 mls/hr IVPB Q12 [facility]; Protocol Stop: 10/07/18 22:01 Last Admin: 10/02/18 10:51 Dose: 100 mls/hr Losartan Potassium (Cozaar) 25 mg PO DAILY [facility] Last Admin: 10/02/18 10:51 Dose: 25 mg Metoprolol Tartrate (Lopressor) 5 mg IVP Q6H PRN PRN Reason: HR >110 Last Admin: 10/02/18 10:52 Dose: 5 mg Ondansetron HCl (Zofran Inj) 4 mg IVP Q6H PRN PRN Reason: Nausea/Vomiting - Labs Labs: 10/01/18 07:45 10/01/18 07:45 PT 16.4 SECONDS (9.4-12.5) H 09/28/18 11:54 INR 1.45 09/28/18 11:54 APTT 37.8 Seconds (26.9-38.3) 09/28/18 11:54 Assessment and Plan - Assessment and Plan (Free Text) Plan: Patient was seen, evaluated and examined by me at the bedside. I agree with assessment and plan as stated in the resident's note.
--- NOTE | 2018-09-29 09:02 | CP.PCM.CON ---
<Pamela Vallesil - Last Filed: 09/29/18 16:44> History of Present Illness - History of Present Illness History of Present Illness: Uziel Valles- Internal Medicine Resident-Consult Note on Behalf of Dr. Campos Subjective: CC: Lower abdominal pain HPI: Patient is a 82 year old female with a past medical history of GERD, asthma, diverticulosis, internal hemorrhoids, and colonic polyps who was admitted for evaluation and treatment of abdominal pain which started 6 days ago with no specific provoking event. 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 She was called back to hospital because in-house hospital read of CT scan found new findings. GI team was consulted because patient reported dark stools. Patient seen and examined at bedside. No acute events since admission. Offers no new complaints at this time. States abdominal pain has resolved. States she has not experienced a bowel movement since Saturday (2 days prior). Denies nausea, vomiting, diarrhea, bright red blood per rectum, and change in stool caliber. Further denies fever, chills, chest pain, SOB, and urinary symptoms. PMHx: HTN, GERD, Asthma PSHx: Breast biospies Allergies: Penicillins Social: denies tobacco, alcohol or illicit drug use Family History: non-contributory PMD: Dr. Elyssa Rivera Medications: please see MAR Physical Examination: - Constitutional Appears: Non-toxic, No Acute Distress - Eye Exam Eye Exam: EOMI - ENT Exam ENT Exam: Mucous Membranes Moist - Respiratory Exam Respiratory Exam: Clear to Auscultation Bilateral, NORMAL BREATHING PATTERN - Cardiovascular Exam Cardiovascular Exam: Tachycardia, +S1, +S2 - GI/Abdominal Exam GI & Abdominal Exam: Soft, non-tender. absent: Distended, Firm, Guarding, Rebound, Rigid - Rectal Exam Rectal Exam: completed in ED Present: Occult Blood, Melena, Hemorrhoids (nonthrombosed), Normal Rectal Tone. No: Rectal Tenderness, Gross Blood - Extremities Exam Extremities exam: Negative for: pedal edema, tenderness - Neurological Exam Neurological exam: Alert, Oriented x3 - Psychiatric Exam Psychiatric exam: Normal Affect, Normal Mood - Skin Skin Exam: Dry, Intact, Normal Color, Warm Assessment and Plan: Patient is a 82 year old female with a past medical history of GERD, asthma, diverticulosis, internal hemorrhoids, and colonic polyps who was admitted for evaluation and treatment of abdominal pain. Questionable GI bleed Cecal Mass Imaging Studies Reviewed: 10/15/2017 colonoscopy revealed diverticulosis of the entire examined colon, bleeding internal hemorrhoids, one 8mm polyp in the transverse colon and one 5mm polyp in the sigmoid colon. Both tubular adenoma on pathology. 09/27/2018 CT abdomen and pelvis with oral and IV contrast-1. The proximal appendix is identified and normal in caliber however the entire appendix is not well delineated. There is abnormal soft tissue at the base of the cecum in the right lower quadrant and extending to the right adnexa with extensive surrounding inflammatory changes. 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 2. Fibroid uterus. 3. Extensive colonic diverticulosis without CT evidence for acute diverticulitis - start clear liquid diet - start protonix 40mg IV q12 - c/w IVF NS @75cc/hr - c/w abx meropenem 1 gram IV q12 - c/w pain control 0.5mg IV q6h prn pain - F/u Pelvis ultrasound - F/u UA - MRI pelvis with and without contrast ordered and pending Patient case discussed with and plan approved by attending physician, Dr. Campos. Past Patient History - Tetanus Immunizations Tetanus Immunization: Unknown - Past Social History Smoking Status: Never Smoked - CARDIAC Hx Hypertension: Yes Hx Pacemaker: No - PULMONARY Hx Respiratory Disorders: Yes Hx Asthma: Yes (As a child/young adult) - NEUROLOGICAL Hx Paralysis: No - HEENT Hx HEENT Problems: Yes (wears eye glass) - RENAL Hx Chronic Kidney Disease: No - ENDOCRINE/METABOLIC Hx Endocrine Disorders: No - HEMATOLOGICAL/ONCOLOGICAL Hx Blood Transfusions: No Hx Blood Transfusion Reaction: No - INTEGUMENTARY Hx Dermatological Problems: No - MUSCULOSKELETAL/RHEUMATOLOGICAL Hx Musculoskeletal Disorders: Yes - GASTROINTESTINAL Hx Gastrointestinal Disorders: No - GENITOURINARY/GYNECOLOGICAL Hx Genitourinary Disorders: No - PSYCHIATRIC Hx Emotional Abuse: No Hx Physical Abuse: No Hx Substance Use: No - SURGICAL HISTORY Hx Surgeries: Yes - ANESTHESIA Hx Anesthesia Reactions: No Hx Malignant Hyperthermia: No Meds Allergies/Adverse Reactions: Allergies Allergy/AdvReac Type Severity Reaction Status Date / Time Penicillins Allergy Severe ANAPHYLAXIS Verified 09/28/18 11:39 - Medications Medications: Current Medications Docusate Sodium (Colace) 100 mg PO DAILY [facility] Last Admin: 09/28/18 13:41 Dose: 100 mg Hydromorphone HCl (Dilaudid) 0.5 mg IVP Q6H PRN PRN Reason: Pain, severe (8-10) Meropenem (Merrem Iv 1 Gm Premix) 1 gm in 50 mls @ 100 mls/hr IVPB Q12 [facility]; Protocol Stop: 10/07/18 22:01 Last Admin: 09/28/18 21:40 Dose: 100 mls/hr Sodium Chloride (Sodium Chloride 0.9%) 1,000 mls @ 75 mls/hr IV .[id number] [facility] Pantoprazole Sodium (Protonix Inj) 40 mg IVP DAILY [facility] Last Admin: 09/28/18 13:41 Dose: 40 mg Results - Vital Signs Recent Vital Signs: Last Vital Signs Temp 98.5 F 09/29/18 06:00 Pulse 117 H 09/29/18 06:00 Resp 18 09/29/18 06:00 BP 151/75 H 09/29/18 06:00 Pulse Ox 95 09/29/18 06:00 - Labs Result Diagrams: 09/29/18 06:00 09/29/18 06:00 Labs: Laboratory Results - last 24 hr 09/28/18 09/28/18 09/28/18 11:50 11:54 11:54 WBC 14.3 H RBC 3.75 Hgb 11.4 L Hct 34.8 L MCV 92.8 MCH 30.4 MCHC 32.8 RDW 13.7 Plt Count 297 MPV 10.6 Neut % (Auto) 89.8 H Lymph % (Auto) 5.3 L Sampson % (Auto) 4.6 Eos % (Auto) 0.2 L Baso % (Auto) 0.1 Lymph # (Auto) 0.8 L Sampson # (Auto) 0.7 H Eos # (Auto) 0.0 Baso # (Auto) 0.02 Absolute Neuts (auto) 12.79 H PT 16.4 H INR 1.45 APTT 37.8 pO2 26 L VBG pH 7.37 VBG pCO2 47.0 VBG HCO3 27.2 VBG Total CO2 28.6 H VBG O2 Sat (Calc) 47.6 VBG Base Excess 1.3 VBG Potassium 3.8 Sodium 135.0 Chloride 103.0 Glucose 98 Lactate 1.2 FiO2 21.0 Potassium Carbon Dioxide Anion Gap BUN Creatinine Est GFR ( Amer) Est GFR (Non-Af Amer) Random Glucose Calcium Magnesium Total Bilirubin AST ALT Alkaline Phosphatase Troponin I Total Protein Albumin Globulin Albumin/Globulin Ratio Lipase Venous Blood Potassium 3.8 Urine Color Urine Appearance Urine pH Ur Specific [place] Urine Protein Urine Glucose (UA) Urine Ketones Urine Blood Urine Nitrate Urine Bilirubin Urine Urobilinogen Ur Leukocyte Esterase Urine RBC Urine WBC Ur Epithelial Cells Urine Bacteria 09/28/18 09/28/18 09/29/18 11:54 13:37 06:00 WBC 12.3 H RBC 3.54 Hgb 10.5 L Hct 33.0 L MCV 93.2 MCH 29.7 MCHC 31.8 RDW 13.9 Plt Count 299 MPV 10.8 Neut % (Auto) Lymph % (Auto) Sampson % (Auto) Eos % (Auto) Baso % (Auto) Lymph # (Auto) Sampson # (Auto) Eos # (Auto) Baso # (Auto) Absolute Neuts (auto) PT INR APTT pO2 VBG pH VBG pCO2 VBG HCO3 VBG Total CO2 VBG O2 Sat (Calc) VBG Base Excess VBG Potassium Sodium 136 Chloride 102 Glucose Lactate FiO2 Potassium 3.9 Carbon Dioxide 28 Anion Gap 11 BUN 21 Creatinine 1.4 H Est GFR ( Amer) 43 Est GFR (Non-Af Amer) 36 Random Glucose 98 Calcium 8.5 Magnesium Total Bilirubin 0.9 AST 27 ALT 12 Alkaline Phosphatase 61 Troponin I < 0.01 Total Protein 6.7 Albumin 3.2 Globulin 3.5 Albumin/Globulin Ratio 0.9 L Lipase 28 Venous Blood Potassium Urine Color Yellow Urine Appearance Clear Urine pH 6.0 Ur Specific [place] 1.015 Urine Protein Trace H Urine Glucose (UA) Negative Urine Ketones Negative Urine Blood Trace-lysed H Urine Nitrate Negative Urine Bilirubin Negative Urine Urobilinogen 0.2 Ur Leukocyte Esterase Trace H Urine RBC 0 - 2 Urine WBC 0 - 2 Ur Epithelial Cells 1 - 3 Urine Bacteria Small 09/29/18 06:00 WBC RBC Hgb Hct MCV MCH MCHC RDW Plt Count MPV Neut % (Auto) Lymph % (Auto) Sampson % (Auto) Eos % (Auto) Baso % (Auto) Lymph # (Auto) Sampson # (Auto) Eos # (Auto) Baso # (Auto) Absolute Neuts (auto) PT INR APTT pO2 VBG pH VBG pCO2 VBG HCO3 VBG Total CO2 VBG O2 Sat (Calc) VBG Base Excess VBG Potassium Sodium 139 Chloride 105 Glucose Lactate FiO2 Potassium 3.6 Carbon Dioxide 25 Anion Gap 13 BUN 14 Creatinine 1.2 Est GFR ( Amer) 52 Est GFR (Non-Af Amer) 43 Random Glucose 77 Calcium 8.6 Magnesium 2.1 Total Bilirubin 0.6 AST 34 ALT 13 Alkaline Phosphatase 67 Troponin I Total Protein 6.4 Albumin 3.1 Globulin 3.3 Albumin/Globulin Ratio 0.9 L Lipase Venous Blood Potassium Urine Color Urine Appearance Urine pH Ur Specific [place] Urine Protein Urine Glucose (UA) Urine Ketones Urine Blood Urine Nitrate Urine Bilirubin Urine Urobilinogen Ur Leukocyte Esterase Urine RBC Urine WBC Ur Epithelial Cells Urine Bacteria <Chase Campos V - Last Filed: 09/29/18 20:39> Meds - Medications Medications: Current Medications Acetaminophen (Tylenol 325mg Tab) 650 mg PO Q6H PRN PRN Reason: Fever >100.4 F Albuterol/Ipratropium (Duoneb 3 Mg/0.5 Mg (3 Ml) Ud) 3 ml IH [id number] PRN PRN Reason: Shortness of Breath Last Admin: 09/29/18 12:25 Dose: 3 ml Ascorbic Acid (Vitamin C 500 Mg Tab) 500 mg PO DAILY [facility] Cholecalciferol (Vitamin D) 1,000 intlu PO DAILY [facility] Docusate Sodium (Colace) 100 mg PO DAILY [facility] Last Admin: 09/29/18 10:24 Dose: 100 mg Hydromorphone HCl (Dilaudid) 0.5 mg IVP Q6H PRN PRN Reason: Pain, severe (8-10) Meropenem (Merrem Iv 1 Gm Premix) 1 gm in 50 mls @ 100 mls/hr IVPB Q12 [facility]; Protocol Stop: 10/07/18 22:01 Last Admin: 09/29/18 10:24 Dose: 100 mls/hr Sodium Chloride (Sodium Chloride 0.9%) 1,000 mls @ 75 mls/hr IV .[id number] [facility] Last Admin: 09/29/18 10:25 Dose: 75 mls/hr Metoprolol Tartrate (Lopressor) 5 mg IVP Q6H PRN PRN Reason: HR >110 Last Admin: 09/29/18 18:45 Dose: 5 mg Pantoprazole Sodium (Protonix Inj) 40 mg IVP Q12 [facility] Last Admin: 09/29/18 17:01 Dose: 40 mg Results - Vital Signs Recent Vital Signs: Last Vital Signs Temp 98.5 F 09/29/18 06:00 Pulse 123 H 09/29/18 18:45 Resp 22 09/29/18 18:17 BP 168/84 H 09/29/18 18:45 Pulse Ox 95 09/29/18 18:17 - Labs Result Diagrams: 09/29/18 06:00 09/29/18 06:00 Labs: Laboratory Results - last 24 hr 09/29/18 09/29/18 06:00 06:00 WBC 12.3 H RBC 3.54 Hgb 10.5 L Hct 33.0 L MCV 93.2 MCH 29.7 MCHC 31.8 RDW 13.9 Plt Count 299 MPV 10.8 Sodium 139 Potassium 3.6 Chloride 105 Carbon Dioxide 25 Anion Gap 13 BUN 14 Creatinine 1.2 Est GFR ( Amer) 52 Est GFR (Non-Af Amer) 43 Random Glucose 77 Calcium 8.6 Magnesium 2.1 Total Bilirubin 0.6 AST 34 ALT 13 Alkaline Phosphatase 67 Total Protein 6.4 Albumin 3.1 Globulin 3.3 Albumin/Globulin Ratio 0.9 L Attending/Attestation - Attestation I have personally seen and examined this patient.: Yes I have fully participated in the care of the patient.: Yes I have reviewed all pertinent clinical information: Yes Notes (Text): The patient was seen and evaluated here earlier along with the resident. This is an addendum to the GI consultation report dictated by the resident. Imaging studies were reviewed. Etiology for this mass lesion is unclear. Inflammatory versus neoplastic to be considered previous cath the colonoscopy findings were reviewed. Cecum appeared unremarkable in the previous colonoscopies. It is reasonable to consider MRI to further evaluate. Discussed with the patient at length. Continue the antibiotics as per ID. Thank you Dr. Cat for allowing us to participate in the care of the patient. We will continue to closely follow-up her care and suggest further recommendations based on the clinical course. 09/29/18 20:37
--- NOTE | 2018-09-29 09:16 | CARD ---
APPROVED REPORT Date of service: 09/28/2018 EKG Measurement Heart [id number] <Conclusion> Sinus tachycardia Possible Left atrial enlargement Left anterior fascicular block Inferior infarct, age undetermined Cannot rule out Anterior infarct, age undetermined Abnormal ECG
[2018-09-29] MEDS: Meropenem IV 1 gm in NS 1 GM/50 ML BAG IVPB SCH ×2 (10:24→22:34)
[2018-09-29] MEDS: Albuterol-Ipratrop 3 mg / 0.5 (3 ml) UD IH PRN ×2 (12:25→20:51)
--- NOTE | 2018-09-29 12:26 | CP.PCM.CON ---
<Casper Meyer - Last Filed: 09/29/18 16:57> History of Present Illness - History of Present Illness History of Present Illness: Infectious disease consult note: 82-year-old female with past medical history of hypertension, GERD, asthma, diverticulosis presents with abdominal pain. Patient states that her abdominal pain started 6 days ago and the pain has gotten progressively worse. Patient has been to the emergency room and a CT of the abdomen was performed showing pancolitis, patient was discharged home with p.o. antibiotics. With the official read by radiology CT scan was positive for a right lower quadrant mass versus appendicitis. Patient was subsequently told to return to the hospital. This time patient states still has mild right lower quadrant pain. She denies any nausea, vomiting, or diarrhea. She also denies any fevers or chills. Infectious disease was consulted for leukocytosis. 12 point ROS were performed and negative other than stated above PMHx: HTN, GERD, Asthma PSHx: Breast biopsies x 2 Allergies: Pcn SH: denies tobacco, alcohol or illicit drug use Family History: denies Medications: refer to MAR Review of Systems - Review of Systems All systems: reviewed and no additional remarkable complaints except Past Patient History - Tetanus Immunizations Tetanus Immunization: Unknown - Past Social History Smoking Status: Never Smoked - CARDIAC Hx Hypertension: Yes Hx Pacemaker: No - PULMONARY Hx Respiratory Disorders: Yes Hx Asthma: Yes (As a child/young adult) - NEUROLOGICAL Hx Paralysis: No - HEENT Hx HEENT Problems: Yes (wears eye glass) - RENAL Hx Chronic Kidney Disease: No - ENDOCRINE/METABOLIC Hx Endocrine Disorders: No - HEMATOLOGICAL/ONCOLOGICAL Hx Blood Transfusions: No Hx Blood Transfusion Reaction: No - INTEGUMENTARY Hx Dermatological Problems: No - MUSCULOSKELETAL/RHEUMATOLOGICAL Hx Musculoskeletal Disorders: Yes - GASTROINTESTINAL Hx Gastrointestinal Disorders: No - GENITOURINARY/GYNECOLOGICAL Hx Genitourinary Disorders: No - PSYCHIATRIC Hx Emotional Abuse: No Hx Physical Abuse: No Hx Substance Use: No - SURGICAL HISTORY Hx Surgeries: Yes - ANESTHESIA Hx Anesthesia Reactions: No Hx Malignant Hyperthermia: No Meds Allergies/Adverse Reactions: Allergies Allergy/AdvReac Type Severity Reaction Status Date / Time Penicillins Allergy Severe ANAPHYLAXIS Verified 09/28/18 11:39 - Medications Medications: Current Medications Albuterol/Ipratropium (Duoneb 3 Mg/0.5 Mg (3 Ml) Ud) 3 ml IH [id number] PRN PRN Reason: Shortness of Breath Ascorbic Acid (Vitamin C 500 Mg Tab) 500 mg PO DAILY [facility] Cholecalciferol (Vitamin D) 1,000 intlu PO DAILY [facility] Docusate Sodium (Colace) 100 mg PO DAILY [facility] Last Admin: 09/29/18 10:24 Dose: 100 mg Hydromorphone HCl (Dilaudid) 0.5 mg IVP Q6H PRN PRN Reason: Pain, severe (8-10) Meropenem (Merrem Iv 1 Gm Premix) 1 gm in 50 mls @ 100 mls/hr IVPB Q12 [facility]; Protocol Stop: 10/07/18 22:01 Last Admin: 09/29/18 10:24 Dose: 100 mls/hr Sodium Chloride (Sodium Chloride 0.9%) 1,000 mls @ 75 mls/hr IV .[id number] Last Admin: 09/29/18 10:25 Dose: 75 mls/hr Pantoprazole Sodium (Protonix Inj) 40 mg IVP Q12 [facility] Physical Exam - Head Exam Head Exam: ATRAUMATIC, NORMOCEPHALIC - Eye Exam Eye Exam: EOMI, PERRL - ENT Exam ENT Exam: Mucous Membranes Moist - Respiratory Exam Respiratory Exam: Clear to Auscultation Bilateral. absent: Wheezes - Cardiovascular Exam Cardiovascular Exam: REGULAR RHYTHM, +S1, +S2 - GI/Abdominal Exam GI & Abdominal Exam: Normal Bowel Sounds, Soft, Tenderness (mild RLQ tenderness ) - Extremities Exam Extremities exam: Negative for: calf tenderness, pedal edema - Neurological Exam Neurological exam: Alert, Oriented x3 - Psychiatric Exam Psychiatric exam: Normal Mood - Skin Skin Exam: Dry, Warm Results - Vital Signs Recent Vital Signs: Last Vital Signs Temp 98.5 F 09/29/18 06:00 Pulse 114 H 09/29/18 10:00 Resp 18 09/29/18 06:00 BP 151/75 H 09/29/18 06:00 Pulse Ox 95 09/29/18 06:00 - Labs Result Diagrams: 09/29/18 06:00 09/29/18 06:00 Labs: Laboratory Results - last 24 hr 09/28/18 09/28/18 09/28/18 11:54 11:54 13:37 WBC RBC Hgb Hct MCV MCH MCHC RDW Plt Count MPV PT 16.4 H INR 1.45 APTT 37.8 Sodium Potassium Chloride Carbon Dioxide Anion Gap BUN Creatinine Est GFR ( Amer) Est GFR (Non-Af Amer) Random Glucose Calcium Magnesium Total Bilirubin AST ALT Alkaline Phosphatase Troponin I < 0.01 Total Protein Albumin Globulin Albumin/Globulin Ratio Urine Color Yellow Urine Appearance Clear Urine pH 6.0 Ur Specific [place] 1.015 Urine Protein Trace H Urine Glucose (UA) Negative Urine Ketones Negative Urine Blood Trace-lysed H Urine Nitrate Negative Urine Bilirubin Negative Urine Urobilinogen 0.2 Ur Leukocyte Esterase Trace H Urine RBC 0 - 2 Urine WBC 0 - 2 Ur Epithelial Cells 1 - 3 Urine Bacteria Small 09/29/18 09/29/18 06:00 06:00 WBC 12.3 H RBC 3.54 Hgb 10.5 L Hct 33.0 L MCV 93.2 MCH 29.7 MCHC 31.8 RDW 13.9 Plt Count 299 MPV 10.8 PT INR APTT Sodium 139 Potassium 3.6 Chloride 105 Carbon Dioxide 25 Anion Gap 13 BUN 14 Creatinine 1.2 Est GFR ( Amer) 52 Est GFR (Non-Af Amer) 43 Random Glucose 77 Calcium 8.6 Magnesium 2.1 Total Bilirubin 0.6 AST 34 ALT 13 Alkaline Phosphatase 67 Troponin I Total Protein 6.4 Albumin 3.1 Globulin 3.3 Albumin/Globulin Ratio 0.9 L Urine Color Urine Appearance Urine pH Ur Specific [place] Urine Protein Urine Glucose (UA) Urine Ketones Urine Blood Urine Nitrate Urine Bilirubin Urine Urobilinogen Ur Leukocyte Esterase Urine RBC Urine WBC Ur Epithelial Cells Urine Bacteria Assessment & Plan - Assessment and Plan (Free Text) Assessment: Sepsis - Right lower quadrant abdominal pain 2/2 cecal mass versus appendicitis Hypertension GERD Asthma Cecal mass r/o Chrones dx, lymphoma, CMV, syphlis, HIV, Yersinia, TB, and EBV. 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 Transvaginal ultrasound performed and shows fibroid uterus with dominant 1.9 cm submucosal anterior wall fibroid no evidence for ovarian cyst or mass. Continue with meropenem F/u HIV, RPR F/u IR recs, would rec sending out for fungal smear and AFP in addition to the cultures Follow-up blood and urine culture Follow-up further septic work-up Follow-up OCCUPATIONAL THERAPIST AIDE, surgery and gastroenterology recs Continue to monitor for any changes Case and plan to be reviewed and discussed with Dr. Kong. <Naldo Kong - Last Filed: 09/29/18 17:01> Meds - Medications Medications: Current Medications Acetaminophen (Tylenol 325mg Tab) 650 mg PO Q6H PRN PRN Reason: Fever >100.4 F Albuterol/Ipratropium (Duoneb 3 Mg/0.5 Mg (3 Ml) Ud) 3 ml IH [id number] PRN PRN Reason: Shortness of Breath Last Admin: 09/29/18 12:25 Dose: 3 ml Ascorbic Acid (Vitamin C 500 Mg Tab) 500 mg PO DAILY [facility] Cholecalciferol (Vitamin D) 1,000 intlu PO DAILY [facility] Docusate Sodium (Colace) 100 mg PO DAILY [facility] Last Admin: 09/29/18 10:24 Dose: 100 mg Hydromorphone HCl (Dilaudid) 0.5 mg IVP Q6H PRN PRN Reason: Pain, severe (8-10) Meropenem (Merrem Iv 1 Gm Premix) 1 gm in 50 mls @ 100 mls/hr IVPB Q12 [facility]; Protocol Stop: 10/07/18 22:01 Last Admin: 09/29/18 10:24 Dose: 100 mls/hr Sodium Chloride (Sodium Chloride 0.9%) 1,000 mls @ 75 mls/hr IV .[id number] [facility] Last Admin: 09/29/18 10:25 Dose: 75 mls/hr Metoprolol Tartrate (Lopressor) 5 mg IVP Q6H PRN PRN Reason: HR >110 Pantoprazole Sodium (Protonix Inj) 40 mg IVP Q12 [facility] Results - Vital Signs Recent Vital Signs: Last Vital Signs Temp 98.5 F 09/29/18 06:00 Pulse 114 H 09/29/18 10:00 Resp 18 09/29/18 06:00 BP 151/75 H 09/29/18 06:00 Pulse Ox 95 09/29/18 06:00 - Labs Result Diagrams: 09/29/18 06:00 05/13/19 06:00 Labs: Laboratory Results - last 24 hr 09/29/18 09/29/18 06:00 06:00 WBC 12.3 H RBC 3.54 Hgb 10.5 L Hct 33.0 L MCV 93.2 MCH 29.7 MCHC 31.8 RDW 13.9 Plt Count 299 MPV 10.8 Sodium 139 Potassium 3.6 Chloride 105 Carbon Dioxide 25 Anion Gap 13 BUN 14 Creatinine 1.2 Est GFR ( Amer) 52 Est GFR (Non-Af Amer) 43 Random Glucose 77 Calcium 8.6 Magnesium 2.1 Total Bilirubin 0.6 AST 34 ALT 13 Alkaline Phosphatase 67 Total Protein 6.4 Albumin 3.1 Globulin 3.3 Albumin/Globulin Ratio 0.9 L Attending/Attestation - Attestation I have personally seen and examined this patient.: Yes I have fully participated in the care of the patient.: Yes I have reviewed all pertinent clinical information: Yes
--- NOTE | 2018-09-29 12:55 | CP.PCM.HP ---
<ArmandoDelfino - Last Filed: 09/29/18 15:12> History of Present Illness - History of Present Illness History of Present Illness: Delfino Roberts D.O. PGY-3, Internal Medicine Resident, Dr. Matthews's Service, H&P CC: abdominal pain for multiple days 82-year-old female with a past medical history of hypertension, GERD, asthma and previous tubular adenomas who presented originally for abdominal pain of multiple days, was sent home on metronidazole and ciprofloxacin from the ER after abdominal CT showed pancolitis, then later called to return after CAT scan was read as having a mass in the right lower quadrant. Patient states that before going to the emergency room where she took medications to help with her bowel movements and she had multiple dark-colored stools. Patient states that the last time she had a bowel movement from now was 2 days ago. States that she has eaten very little and the last time that she actually ate something was Saturday and it was only ate yogurt. At this time only has mild abdominal discomfort and feels like she is bloated. Pain 4/5, intermittent, located in epigastrium, non-radiating, not associated with nausea or vomiting. No other acute complaints at this time. PMH: As above PSH: Breast biopsy SH: Denies tobacco, ethanol, or illicit drug use FH: Noncontributory Allergies: Penicillins Medications: Reviewed Present on Admission - Present on Admission Any Indicators Present on Admission: No Review of Systems - Review of Systems All systems: reviewed and no additional remarkable complaints except (as per HPI) Past Patient History - Tetanus Immunizations Tetanus Immunization: Unknown - Past Social History Smoking Status: Never Smoked - CARDIAC Hx Hypertension: Yes Hx Pacemaker: No - PULMONARY Hx Respiratory Disorders: Yes Hx Asthma: Yes (As a child/young adult) - NEUROLOGICAL Hx Paralysis: No - HEENT Hx HEENT Problems: Yes (wears eye glass) - RENAL Hx Chronic Kidney Disease: No - ENDOCRINE/METABOLIC Hx Endocrine Disorders: No - HEMATOLOGICAL/ONCOLOGICAL Hx Blood Transfusions: No Hx Blood Transfusion Reaction: No - INTEGUMENTARY Hx Dermatological Problems: No - MUSCULOSKELETAL/RHEUMATOLOGICAL Hx Musculoskeletal Disorders: Yes - GASTROINTESTINAL Hx Gastrointestinal Disorders: No - GENITOURINARY/GYNECOLOGICAL Hx Genitourinary Disorders: No - PSYCHIATRIC Hx Emotional Abuse: No Hx Physical Abuse: No Hx Substance Use: No - SURGICAL HISTORY Hx Surgeries: Yes - ANESTHESIA Hx Anesthesia Reactions: No Hx Malignant Hyperthermia: No Meds Allergies/Adverse Reactions: Allergies Allergy/AdvReac Type Severity Reaction Status Date / Time Penicillins Allergy Severe ANAPHYLAXIS Verified 09/28/18 11:39 Physical Exam - Constitutional Appears: Non-toxic - Head Exam Head Exam: ATRAUMATIC, NORMOCEPHALIC - Eye Exam Eye Exam: EOMI. absent: Scleral icterus - ENT Exam ENT Exam: Mucous Membranes Moist, Normal Oropharynx - Neck Exam Neck exam: Positive for: Normal Inspection. Negative for: Lymphadenopathy - Respiratory Exam Respiratory Exam: Clear to Auscultation Bilateral. absent: Rhonchi, Wheezes - Cardiovascular Exam Cardiovascular Exam: +S1, +S2. absent: Gallop, Rubs - GI/Abdominal Exam GI & Abdominal Exam: Distended, Normal Bowel Sounds, Soft, Tenderness (mildly) - Extremities Exam Extremities exam: Negative for: calf tenderness, pedal edema - Neurological Exam Neurological exam: Alert, Oriented x3 - Skin Skin Exam: Dry, Warm Results - Vital Signs Recent Vital Signs: Last Vital Signs Temp 98.5 F 09/29/18 06:00 Pulse 114 H 09/29/18 10:00 Resp 18 09/29/18 06:00 BP 151/75 H 09/29/18 06:00 Pulse Ox 95 09/29/18 06:00 - Labs Result Diagrams: 09/29/18 06:00 09/29/18 06:00 Labs: Laboratory Results - last 24 hr 09/28/18 09/29/18 09/29/18 13:37 06:00 06:00 WBC 12.3 H RBC 3.54 Hgb 10.5 L Hct 33.0 L MCV 93.2 MCH 29.7 MCHC 31.8 RDW 13.9 Plt Count 299 MPV 10.8 Sodium 139 Potassium 3.6 Chloride 105 Carbon Dioxide 25 Anion Gap 13 BUN 14 Creatinine 1.2 Est GFR ( Amer) 52 Est GFR (Non-Af Amer) 43 Random Glucose 77 Calcium 8.6 Magnesium 2.1 Total Bilirubin 0.6 AST 34 ALT 13 Alkaline Phosphatase 67 Total Protein 6.4 Albumin 3.1 Globulin 3.3 Albumin/Globulin Ratio 0.9 L Urine Color Yellow Urine Appearance Clear Urine pH 6.0 Ur Specific [place] 1.015 Urine Protein Trace H Urine Glucose (UA) Negative Urine Ketones Negative Urine Blood Trace-lysed H Urine Nitrate Negative Urine Bilirubin Negative Urine Urobilinogen 0.2 Ur Leukocyte Esterase Trace H Urine RBC 0 - 2 Urine WBC 0 - 2 Ur Epithelial Cells 1 - 3 Urine Bacteria Small Assessment & Plan - Assessment and Plan (Free Text) Assessment: 82-year-old female with a past medical history of hypertension, GERD, asthma and previous tubular adenomas who presented originally for abdominal pain of multiple days, was sent home on metronidazole and ciprofloxacin from the ER after abdominal CT showed pancolitis, then later called to return after CAT scan was read as having a mass in the right lower quadrant. Plan: 1. New right-sided abdominal mass with abdominal pain 2. Sepsis SIRS 2/4 with leukocytosis and tachycardia likely secondary to pancolitis 3. Downtrending hemoglobin 4. Hypertension 5. GERD 6. Asthma Abdomen and pelvis CT read was reviewed and showing there is abnormal soft tissue at the base of the cecum/right lower quadrant extending to the right adnexa with surrounding inflammatory changes. Interventional radiology has been consulted for evaluation of possible aspiration/biopsy. GI has been consulted as well, recommendations are appreciated. Will continue with Colace and Protonix. Of note patient last had a colonoscopy on 10/15/2017 which showed just 2 tubular adenomatous. Time of just under 1 year unlikely for colonic mass. Continue ascorbic acid. Transvaginal US showed fibroid. ID was consulted, recommendations are appreciated. Continue with meropenem. Urine culture and blood cultures are pending. Leukocytosis downtrending. Hgb also downtrending however hemodynamically stable. PRN tylenol. PRN metoprolol. Surgery consulted, recs also reviewed and appreciated. Continue pain control. Continue NPO at this time. Patient was seen and examined and case was discussed with attending physician. - Date & Time Date: 09/29/18 Time: 07:59 <Angel Matthews S - Last Filed: 09/29/18 15:51> Results - Vital Signs Recent Vital Signs: Last Vital Signs Temp 98.5 F 09/29/18 06:00 Pulse 114 H 09/29/18 10:00 Resp 18 09/29/18 06:00 BP 151/75 H 09/29/18 06:00 Pulse Ox 95 09/29/18 06:00 - Labs Result Diagrams: 09/29/18 06:00 09/29/18 06:00 Labs: Laboratory Results - last 24 hr 09/29/18 09/29/18 06:00 06:00 WBC 12.3 H RBC 3.54 Hgb 10.5 L Hct 33.0 L MCV 93.2 MCH 29.7 MCHC 31.8 RDW 13.9 Plt Count 299 MPV 10.8 Sodium 139 Potassium 3.6 Chloride 105 Carbon Dioxide 25 Anion Gap 13 BUN 14 Creatinine 1.2 Est GFR ( Amer) 52 Est GFR (Non-Af Amer) 43 Random Glucose 77 Calcium 8.6 Magnesium 2.1 Total Bilirubin 0.6 AST 34 ALT 13 Alkaline Phosphatase 67 Total Protein 6.4 Albumin 3.1 Globulin 3.3 Albumin/Globulin Ratio 0.9 L Assessment & Plan - Assessment and Plan (Free Text) Plan: Pt seen and examined by me. I have reviewed the note of the resident medical officer and I agree with it. I have discussed the assessment and plan with the resident. I have reviewed the medications and the last labs.
[2018-09-29] MEDS ORDERED: Gadodiamide 287 MG/ML VIAL (20ML) IV ONE (17:35)
[2018-09-29] MEDS: Metoprolol 1 mg/ml Inj IVP PRN (18:45)
--- NOTE | 2018-09-29 21:24 | HP ---
DATE OF EXAM: 09/29/2018 HISTORY OF PRESENT ILLNESS: The patient was seen and examined. I do agree with the note of the lpn or medical assistant. I was involved in the plan of care. The patient is being admitted to the hospital because of abdominal pain. She initially had a CAT scan that showed pancolitis and so was given Flagyl and ciprofloxacin and discharged home. She came into the hospital again and the CAT scan reading showed that there may be an abnormality that is related to the appendix. There is a soft tissue abnormality in the cecum in the right lower quadrant. I have asked ID and Surgery to evaluate the patient. The patient does have sepsis. We will continue the patient on IV antibiotics. SHE IS ALLERGIC TO PENICILLIN. She says that her pain is better controlled ever since she has come into the hospital. Her asthma is controlled. She does not have any GERD symptoms. I have asked ID and I have reviewed the note of the underlying infectious disease. We will also get an evaluation by Dr. Jonas William from Interventional Radiology. The patient is on meropenem and this will be continued. The patient is on Protonix daily and is on IV fluids with normal saline at 75 mL/hour. She currently is n.p.o. She will get repeat blood work tomorrow. Angel Matthews MD
[2018-09-30 07:02] LABS: HEMOGLOBIN 10.7 g/dL (12.0-16.0); MEAN CELL VOLUME 92.7 fl (80.0-105.0); MEAN CORPUSCULAR HEMOGLOBIN 30.1 pg (25.0-35.0); MEAN CORPUSCULAR HGB CONC 32.5 g/dl (31.0-37.0); MEAN PLATELET VOLUME 10.2 fl (7.0-11.0); RBC 3.55 10^6/uL (3.5-6.1); RED CELL DISTRIBUTION WIDTH 14.1 % (11.5-14.5); WHITE BLOOD COUNT 8.8 10^3/uL (4.5-11.0)
[2018-09-30 07:15] LABS: ALB/GLOB RATIO 0.9 (1.1-1.8); ALBUMIN 2.9 g/dL (3.0-4.8); CALCIUM 8.9 mg/dL (8.4-10.5)
--- NOTE | 2018-09-30 07:55 | CP.PCM.PN ---
<Diana Philippe - Last Filed: 10/01/18 07:35> Subjective - Date & Time of Evaluation Date of Evaluation: 09/30/18 Time of Evaluation: 06:50 - Subjective Subjective: General Surgery Dr. Garrido Pt seen and examined @bedside. No acute events overnight. Pt reports some abd discomfort to R side. pain in similar to admission though much improved. Pt denies F/C, N/V, D/C. (+)Flatus (-)BM. tolerating diet. Objective - Vital Signs/Intake and Output Vital Signs (last 24 hours): Temp Pulse Resp BP Pulse Ox 98.5 F 103 H 22 168/84 H 95 09/29/18 06:00 09/30/18 06:00 09/29/18 18:17 09/29/18 18:45 09/29/18 18:17 Intake and Output: 09/30/18 09/30/18 06:59 18:59 Intake Total 240 Balance 240 - Medications Medications: Current Medications Acetaminophen (Tylenol 325mg Tab) 650 mg PO Q6H PRN PRN Reason: Fever >100.4 F Albuterol/Ipratropium (Duoneb 3 Mg/0.5 Mg (3 Ml) Ud) 3 ml IH [id number] PRN PRN Reason: Shortness of Breath Last Admin: 09/29/18 20:51 Dose: 3 ml Ascorbic Acid (Vitamin C 500 Mg Tab) 500 mg PO DAILY [facility] Cholecalciferol (Vitamin D) 1,000 intlu PO DAILY [facility] Docusate Sodium (Colace) 100 mg PO DAILY [facility] Last Admin: 09/29/18 10:24 Dose: 100 mg Hydrochlorothiazide (Hydrodiuril) 25 mg PO DAILY [facility] Hydromorphone HCl (Dilaudid) 0.5 mg IVP Q6H PRN PRN Reason: Pain, severe (8-10) Meropenem (Merrem Iv 1 Gm Premix) 1 gm in 50 mls @ 100 mls/hr IVPB Q12 [facility]; Protocol Stop: 10/07/18 22:01 Last Admin: 09/29/18 22:34 Dose: 100 mls/hr Sodium Chloride (Sodium Chloride 0.9%) 1,000 mls @ 75 mls/hr IV .[id number] [facility] Last Admin: 09/29/18 10:25 Dose: 75 mls/hr Metoprolol Tartrate (Lopressor) 5 mg IVP Q6H PRN PRN Reason: HR >110 Last Admin: 09/29/18 18:45 Dose: 5 mg Pantoprazole Sodium (Protonix Inj) 40 mg IVP Q12 [facility] Last Admin: 09/29/18 22:34 Dose: 40 mg - Labs Labs: 09/30/18 06:15 09/30/18 06:15 PT 16.4 SECONDS (9.4-12.5) H 09/28/18 11:54 INR 1.45 09/28/18 11:54 APTT 37.8 Seconds (26.9-38.3) 09/28/18 11:54 - Constitutional Appears: Non-toxic, No Acute Distress - Head Exam Head Exam: NORMAL INSPECTION - Eye Exam Eye Exam: Normal appearance - ENT Exam ENT Exam: Mucous Membranes Moist - Respiratory Exam Respiratory Exam: NORMAL BREATHING PATTERN. absent: Accessory Muscle Use, Respiratory Distress - Cardiovascular Exam Cardiovascular Exam: absent: Bradycardia, Tachycardia - GI/Abdominal Exam GI & Abdominal Exam: Soft, Tenderness (mild TTP RUQ/RLQ). absent: Distended, Firm, Guarding, Rigid, Rebound - Extremities Exam Extremities Exam: Normal Inspection - Neurological Exam Neurological Exam: Alert, Awake, Oriented x3 - Psychiatric Exam Psychiatric exam: Normal Affect, Normal Mood - Skin Skin Exam: Dry, Intact, Normal Color, Warm Assessment and Plan - Assessment and Plan (Free Text) Assessment: 82 y/o F w/ improved abd pain 2/2 possible diverticulitis vs nonspecific silver plater m ass Plan: - cont CLD - cont non-narcotic pain management - f/u pelvic MRI report - cont IV Abx per ID - f/u GI recs, possible colonoscopy? - recommend [facility]G DAYCARE PROVIDER consult Pt discussed w/ Dr. Radhika Philippe PGY3 <Chaz Garrido - Last Filed: 10/02/18 19:31> Objective - Vital Signs/Intake and Output Vital Signs (last 24 hours): Temp Pulse Resp BP Pulse Ox 97.6 F 101 H 20 132/71 98 10/02/18 16:42 10/02/18 18:00 10/02/18 16:42 10/02/18 16:42 10/02/18 16:42 - Medications Medications: Current Medications Acetaminophen (Tylenol 325mg Tab) 650 mg PO Q6H PRN PRN Reason: Fever >100.4 F Albuterol/Ipratropium (Duoneb 3 Mg/0.5 Mg (3 Ml) Ud) 3 ml IH [id number] PRN PRN Reason: Shortness of Breath Last Admin: 10/02/18 16:27 Dose: 3 ml Ascorbic Acid (Vitamin C 500 Mg Tab) 500 mg PO DAILY [facility] Last Admin: 10/02/18 10:51 Dose: 500 mg Cholecalciferol (Vitamin D) 1,000 intlu PO DAILY [facility] Last Admin: 10/02/18 10:51 Dose: 1,000 intlu Docusate Sodium (Colace) 100 mg PO DAILY [facility] Last Admin: 10/02/18 10:51 Dose: 100 mg Hydrochlorothiazide (Hydrodiuril) 25 mg PO DAILY [facility] Last Admin: 10/02/18 10:51 Dose: 25 mg Meropenem (Merrem Iv 1 Gm Premix) 1 gm in 50 mls @ 100 mls/hr IVPB Q12 [facility]; Protocol Stop: 10/07/18 22:01 Last Admin: 10/02/18 10:51 Dose: 100 mls/hr Losartan Potassium (Cozaar) 25 mg PO DAILY [facility] Last Admin: 10/02/18 10:51 Dose: 25 mg Metoprolol Tartrate (Lopressor) 5 mg IVP Q6H PRN PRN Reason: HR >110 Last Admin: 10/02/18 10:52 Dose: 5 mg Ondansetron HCl (Zofran Inj) 4 mg IVP Q6H PRN PRN Reason: Nausea/Vomiting - Labs Labs: 10/01/18 07:45 10/01/18 07:45 PT 16.4 SECONDS (9.4-12.5) H 09/28/18 11:54 INR 1.45 09/28/18 11:54 APTT 37.8 Seconds (26.9-38.3) 09/28/18 11:54 Assessment and Plan - Assessment and Plan (Free Text) Plan: Patient was seen, evaluated and examined by me at the bedside. I agree with assessment and plan as stated in the resident's note.
[2018-09-30] MEDS: Meropenem IV 1 gm in NS 1 GM/50 ML BAG IVPB SCH ×2 (09:14→21:26)
[2018-09-30] MEDS: Cholecalciferol 1,000 INTLU TAB PO SCH (09:16)
--- NOTE | 2018-09-30 09:49 | CP.PCM.PN ---
<Alberto Díaz - Last Filed: 09/30/18 10:02> Subjective - Date & Time of Evaluation Date of Evaluation: 09/30/18 Time of Evaluation: 09:20 - Subjective Subjective: PGY6 GI Fellow Progress Note Patient seen and examined bedside this morning. The patient states she is feeling well at this time and has only minor RUQ/RLQ discomfort, exacerbated by deep breathing. No events overnight. 12 system ROS performed and negative except where stated Objective - Vital Signs/Intake and Output Vital Signs (last 24 hours): Temp Pulse Resp BP Pulse Ox 98.2 F 106 H 22 174/81 H 94 L 09/30/18 09:00 09/30/18 09:00 09/30/18 09:00 09/30/18 09:00 09/30/18 09:00 Intake and Output: 09/30/18 09/30/18 06:59 18:59 Intake Total 240 Balance 240 - Medications Medications: Current Medications Acetaminophen (Tylenol 325mg Tab) 650 mg PO Q6H PRN PRN Reason: Fever >100.4 F Albuterol/Ipratropium (Duoneb 3 Mg/0.5 Mg (3 Ml) Ud) 3 ml IH [id number] PRN PRN Reason: Shortness of Breath Last Admin: 09/29/18 20:51 Dose: 3 ml Ascorbic Acid (Vitamin C 500 Mg Tab) 500 mg PO DAILY [facility] Last Admin: 09/30/18 09:15 Dose: 500 mg Cholecalciferol (Vitamin D) 1,000 intlu PO DAILY [facility] Last Admin: 09/30/18 09:16 Dose: 1,000 intlu Docusate Sodium (Colace) 100 mg PO DAILY [facility] Last Admin: 09/30/18 09:14 Dose: 100 mg Hydrochlorothiazide (Hydrodiuril) 25 mg PO DAILY [facility] Last Admin: 09/30/18 09:14 Dose: 25 mg Hydromorphone HCl (Dilaudid) 0.5 mg IVP Q6H PRN PRN Reason: Pain, severe (8-10) Meropenem (Merrem Iv 1 Gm Premix) 1 gm in 50 mls @ 100 mls/hr IVPB Q12 [facility]; Protocol Stop: 10/07/18 22:01 Last Admin: 09/30/18 09:14 Dose: 100 mls/hr Sodium Chloride (Sodium Chloride 0.9%) 1,000 mls @ 75 mls/hr IV .[id number] [facility] Last Admin: 09/29/18 10:25 Dose: 75 mls/hr Metoprolol Tartrate (Lopressor) 5 mg IVP Q6H PRN PRN Reason: HR >110 Last Admin: 09/29/18 18:45 Dose: 5 mg Pantoprazole Sodium (Protonix Inj) 40 mg IVP Q12 [facility] Last Admin: 09/30/18 09:15 Dose: 40 mg - Labs Labs: 09/30/18 06:15 09/30/18 06:15 PT 16.4 SECONDS (9.4-12.5) H 09/28/18 11:54 INR 1.45 09/28/18 11:54 APTT 37.8 Seconds (26.9-38.3) 09/28/18 11:54 - Constitutional Appears: Non-toxic, No Acute Distress - Eye Exam Eye Exam: EOMI, PERRL - ENT Exam ENT Exam: Mucous Membranes Moist - Respiratory Exam Respiratory Exam: Clear to Ausculation Bilateral. absent: Rales, Rhonchi, Wheezes - Cardiovascular Exam Cardiovascular Exam: RRR, +S1, +S2 - GI/Abdominal Exam GI & Abdominal Exam: Soft, Tenderness (mild RUQ), Normal Bowel Sounds. absent: Distended, Firm, Guarding, Rigid, Organomegaly - Extremities Exam Extremities Exam: Normal Inspection. absent: Pedal Edema - Neurological Exam Neurological Exam: Alert, Awake, Oriented x3 - Psychiatric Exam Psychiatric exam: Normal Affect, Normal Mood - Skin Skin Exam: Dry, Warm Assessment and Plan - Assessment and Plan (Free Text) Assessment: Patient is a 82yo female with PMHx significant for GERD, asthma and diverticulosis who is being evaluated for abdominal pain -RLQ lesion noted on imaging -Anemia Plan: -Awaiting MRI pelvis -No evidence for overt GI bleeding since admission -Anemia noted; recent EGD/Colonscopy reviewed - no evidence for intra-cecal lesion as recently as 1 year ago -Plan per findings on imaging -Continue PPI as ordered -Diet as tolerated -Surgical service following <Beth,Kovil V - Last Filed: 10/01/18 00:37> Objective - Vital Signs/Intake and Output Vital Signs (last 24 hours): Temp Pulse Resp BP Pulse Ox 98.1 F 94 H 19 162/77 H 94 L 09/30/18 17:12 09/30/18 22:00 09/30/18 17:12 09/30/18 17:12 09/30/18 17:12 Intake and Output: 09/30/18 10/01/18 18:59 06:59 Intake Total 75 Balance 75 - Medications Medications: Current Medications Acetaminophen (Tylenol 325mg Tab) 650 mg PO Q6H PRN PRN Reason: Fever >100.4 F Albuterol/Ipratropium (Duoneb 3 Mg/0.5 Mg (3 Ml) Ud) 3 ml IH [id number] PRN PRN Reason: Shortness of Breath Last Admin: 09/30/18 11:37 Dose: 3 ml Ascorbic Acid (Vitamin C 500 Mg Tab) 500 mg PO DAILY [facility] Last Admin: 09/30/18 09:15 Dose: 500 mg Cholecalciferol (Vitamin D) 1,000 intlu PO DAILY [facility] Last Admin: 09/30/18 09:16 Dose: 1,000 intlu Docusate Sodium (Colace) 100 mg PO DAILY [facility] Last Admin: 09/30/18 09:14 Dose: 100 mg Hydrochlorothiazide (Hydrodiuril) 25 mg PO DAILY [facility] Last Admin: 09/30/18 09:14 Dose: 25 mg Hydromorphone HCl (Dilaudid) 0.5 mg IVP Q6H PRN PRN Reason: Pain, severe (8-10) Meropenem (Merrem Iv 1 Gm Premix) 1 gm in 50 mls @ 100 mls/hr IVPB Q12 [facility]; Protocol Stop: 10/07/18 22:01 Last Admin: 09/30/18 21:26 Dose: 100 mls/hr Metoprolol Tartrate (Lopressor) 5 mg IVP Q6H PRN PRN Reason: HR >110 Last Admin: 09/30/18 13:04 Dose: 5 mg Ondansetron HCl (Zofran Inj) 4 mg IVP Q6H PRN PRN Reason: Nausea/Vomiting - Labs Labs: 09/30/18 06:15 09/30/18 06:15 PT 16.4 SECONDS (9.4-12.5) H 09/28/18 11:54 INR 1.45 09/28/18 11:54 APTT 37.8 Seconds (26.9-38.3) 09/28/18 11:54 Attending/Attestation - Attestation I have personally seen and examined this patient.: Yes I have fully participated in the care of the patient.: Yes I have reviewed all pertinent clinical information, including history, physical exam and plan: Yes Notes (Text): This is an addendum to the GI progress note dictated by the GI fellow. The patient was seen and evaluated along with the fellow earlier today. MRI scan was reviewed. She has some terminal ileal thickening. This patient does have some discomfort in the right lower quadrant area. Patient did have an adnexal biopsy done by Dr. Jonas William. We will review the MRI with the radiologist and also request for IBD serology. We will follow-up the CT-guided biopsy report. Continue the antibiotics 10/01/18 00:36
--- NOTE | 2018-09-30 10:01 | CP.PCM.PN ---
<Casper Meyer - Last Filed: 09/30/18 12:21> Subjective - Date & Time of Evaluation Date of Evaluation: 09/30/18 Time of Evaluation: 09:00 - Subjective Subjective: Infectious disease progress note: Patient seen and examined at bedside. No acute events overnight. Patient states that her right lower quadrant pain has mostly resolved. Denies any fevers or chills. 12 point ROS performed and negative other than as stated above Objective - Vital Signs/Intake and Output Vital Signs (last 24 hours): Temp Pulse Resp BP Pulse Ox 98.2 F 106 H 22 174/81 H 94 L 09/30/18 09:00 09/30/18 09:00 09/30/18 09:00 09/30/18 09:00 09/30/18 09:00 Intake and Output: 09/30/18 09/30/18 06:59 18:59 Intake Total 240 Balance 240 - Medications Medications: Current Medications Acetaminophen (Tylenol 325mg Tab) 650 mg PO Q6H PRN PRN Reason: Fever >100.4 F Albuterol/Ipratropium (Duoneb 3 Mg/0.5 Mg (3 Ml) Ud) 3 ml IH [id number] PRN PRN Reason: Shortness of Breath Last Admin: 09/29/18 20:51 Dose: 3 ml Ascorbic Acid (Vitamin C 500 Mg Tab) 500 mg PO DAILY [facility] Last Admin: 09/30/18 09:15 Dose: 500 mg Cholecalciferol (Vitamin D) 1,000 intlu PO DAILY [facility] Last Admin: 09/30/18 09:16 Dose: 1,000 intlu Docusate Sodium (Colace) 100 mg PO DAILY [facility] Last Admin: 09/30/18 09:14 Dose: 100 mg Hydrochlorothiazide (Hydrodiuril) 25 mg PO DAILY [facility] Last Admin: 09/30/18 09:14 Dose: 25 mg Hydromorphone HCl (Dilaudid) 0.5 mg IVP Q6H PRN PRN Reason: Pain, severe (8-10) Meropenem (Merrem Iv 1 Gm Premix) 1 gm in 50 mls @ 100 mls/hr IVPB Q12 [facility]; Protocol Stop: 10/07/18 22:01 Last Admin: 09/30/18 09:14 Dose: 100 mls/hr Sodium Chloride (Sodium Chloride 0.9%) 1,000 mls @ 75 mls/hr IV .[id number] [facility] Last Admin: 09/29/18 10:25 Dose: 75 mls/hr Metoprolol Tartrate (Lopressor) 5 mg IVP Q6H PRN PRN Reason: HR >110 Last Admin: 09/29/18 18:45 Dose: 5 mg Pantoprazole Sodium (Protonix Inj) 40 mg IVP Q12 [facility] Last Admin: 09/30/18 09:15 Dose: 40 mg - Labs Labs: 09/30/18 06:15 09/30/18 06:15 PT 16.4 SECONDS (9.4-12.5) H 09/28/18 11:54 INR 1.45 09/28/18 11:54 APTT 37.8 Seconds (26.9-38.3) 09/28/18 11:54 - Constitutional Appears: No Acute Distress - Head Exam Head Exam: ATRAUMATIC, NORMOCEPHALIC - Eye Exam Eye Exam: EOMI, PERRL - ENT Exam ENT Exam: Mucous Membranes Moist - Respiratory Exam Respiratory Exam: Clear to Ausculation Bilateral. absent: Wheezes - Cardiovascular Exam Cardiovascular Exam: REGULAR RHYTHM, +S1, +S2 - GI/Abdominal Exam GI & Abdominal Exam: Soft. absent: Tenderness - Extremities Exam Extremities Exam: absent: Calf Tenderness, Pedal Edema - Neurological Exam Neurological Exam: Alert, Awake, Oriented x3 - Psychiatric Exam Psychiatric exam: Normal Mood - Skin Skin Exam: Dry, Normal Color, Warm Assessment and Plan - Assessment and Plan (Free Text) Assessment: Sepsis - Right lower quadrant abdominal pain 2/2 cecal mass versus appendicitis Hypertension GERD Asthma Continue with meropenem (PCN allergy) MRI showed fibroid, terminal iliuem wall thickening Cecal mass differential diagnosis include: Chrones dx, lymphoma, CMV, syphlis, HIV, Yersinia, TB, and EBV. F/u HIV - neg RPR - neg F/u IR recs for RLQ mass / collection - would rec sending out for fungal smear and AFP in addition to the cultures Follow-up blood and urine culture Follow-up further septic work-up Follow-up [employer], surgery and gastroenterology recs Continue to monitor for any changes Case and plan to be reviewed and discussed with Dr. Kong. <Naldo Kong - Last Filed: 09/30/18 12:23> Objective - Vital Signs/Intake and Output Vital Signs (last 24 hours): Temp Pulse Resp BP Pulse Ox 98.2 F 117 H 22 174/81 H 94 L 09/30/18 09:00 09/30/18 10:00 09/30/18 09:00 09/30/18 09:00 09/30/18 09:00 Intake and Output: 09/30/18 09/30/18 06:59 18:59 Intake Total 240 Balance 240 - Medications Medications: Current Medications Acetaminophen (Tylenol 325mg Tab) 650 mg PO Q6H PRN PRN Reason: Fever >100.4 F Albuterol/Ipratropium (Duoneb 3 Mg/0.5 Mg (3 Ml) Ud) 3 ml IH [id number] PRN PRN Reason: Shortness of Breath Last Admin: 09/30/18 11:37 Dose: 3 ml Ascorbic Acid (Vitamin C 500 Mg Tab) 500 mg PO DAILY [facility] Last Admin: 09/30/18 09:15 Dose: 500 mg Cholecalciferol (Vitamin D) 1,000 intlu PO DAILY [facility] Last Admin: 09/30/18 09:16 Dose: 1,000 intlu Docusate Sodium (Colace) 100 mg PO DAILY [facility] Last Admin: 09/30/18 09:14 Dose: 100 mg Hydrochlorothiazide (Hydrodiuril) 25 mg PO DAILY [facility] Last Admin: 09/30/18 09:14 Dose: 25 mg Hydromorphone HCl (Dilaudid) 0.5 mg IVP Q6H PRN PRN Reason: Pain, severe (8-10) Meropenem (Merrem Iv 1 Gm Premix) 1 gm in 50 mls @ 100 mls/hr IVPB Q12 [facility]; Protocol Stop: 10/07/18 22:01 Last Admin: 09/30/18 09:14 Dose: 100 mls/hr Sodium Chloride (Sodium Chloride 0.9%) 1,000 mls @ 75 mls/hr IV .[id number] [facility] Last Admin: 09/29/18 10:25 Dose: 75 mls/hr Metoprolol Tartrate (Lopressor) 5 mg IVP Q6H PRN PRN Reason: HR >110 Last Admin: 05/13/19 18:45 Dose: 5 mg Pantoprazole Sodium (Protonix Inj) 40 mg IVP Q12 [facility] Last Admin: 09/30/18 09:15 Dose: 40 mg - Labs Labs: 09/30/18 06:15 09/30/18 06:15 PT 16.4 SECONDS (9.4-12.5) H 09/28/18 11:54 INR 1.45 09/28/18 11:54 APTT 37.8 Seconds (26.9-38.3) 09/28/18 11:54 Attending/Attestation - Attestation I have personally seen and examined this patient.: Yes I have fully participated in the care of the patient.: Yes I have reviewed all pertinent clinical information, including history, physical exam and plan: Yes
--- NOTE | 2018-09-30 10:48 | MRI ---
Date of service: 09/29/2018 PROCEDURE: MRI pelvis with and without contrast HISTORY: evaluation of pelvic mass COMPARISON: None available. TECHNIQUE: Multiplanar, multi sequence MR images of the pelvis were obtained following administration of intravenous gadolinium contrast. 20 cc of Omniscan FINDINGS: UTERUS: The uterus is deviated to the right side of the pelvis and contains several low intensity fibroids. There is a large exophytic fibroid on the left side of the pelvis measuring 52 x 82 mm in size. There is no significant enhancement of these fibroids. There is minimal enhancement of the periphery. OVARIES/ ADNEXA: The ovaries are not visualized BOWEL: There is some mural thickening and enhancement of the terminal ileum suspicious for inflammatory bowel disease. LYMPH NODES: No lymphadenopathy. BLADDER: Unremarkable. FREE FLUID: None. PELVIC BONES: Grossly unremarkable. OTHER FINDINGS: There is a left-sided inguinal region hernia with minimal enhancement and edema of the herniated fat. This does not contain bowel loops. The report concurs with the preliminary [facility] report IMPRESSION: Uterine fibroids including and large left-sided exophytic fibroid. Mural thickening and enhancement of the terminal ileum most consistent with inflammatory bowel disease. Left-sided inguinal region hernia with a small amount of edema and enhancement of the herniated fat.
--- NOTE | 2018-09-30 10:54 | CP.PCM.PN ---
<Delfino Roberts - Last Filed: 09/30/18 10:48> Subjective - Date & Time of Evaluation Date of Evaluation: 09/30/18 Time of Evaluation: 07:20 - Subjective Subjective: Deflino Roberts D.O. PGY-3, Internal Medicine Resident, Dr. Matthews's Service, Progress Note 82-year-old female with a past medical history of hypertension, GERD, asthma and previous tubular adenomas who presented originally for abdominal pain of multiple days and was found to have a mass in the right lower quadrant. Patient was seen and examined at bedside. States overall pain only bad on deep breathing. Her asthma symptoms are better controlled with nebulizers. No other acute complaints. Objective - Vital Signs/Intake and Output Vital Signs (last 24 hours): Temp Pulse Resp BP Pulse Ox 98.2 F 117 H 22 174/81 H 94 L 09/30/18 09:00 09/30/18 10:00 09/30/18 09:00 09/30/18 09:00 09/30/18 09:00 Intake and Output: 09/30/18 09/30/18 06:59 18:59 Intake Total 240 Balance 240 - Medications Medications: Current Medications Acetaminophen (Tylenol 325mg Tab) 650 mg PO Q6H PRN PRN Reason: Fever >100.4 F Albuterol/Ipratropium (Duoneb 3 Mg/0.5 Mg (3 Ml) Ud) 3 ml IH [id number] PRN PRN Reason: Shortness of Breath Last Admin: 09/29/18 20:51 Dose: 3 ml Ascorbic Acid (Vitamin C 500 Mg Tab) 500 mg PO DAILY [facility] Last Admin: 09/30/18 09:15 Dose: 500 mg Cholecalciferol (Vitamin D) 1,000 intlu PO DAILY [facility] Last Admin: 09/30/18 09:16 Dose: 1,000 intlu Docusate Sodium (Colace) 100 mg PO DAILY [facility] Last Admin: 09/30/18 09:14 Dose: 100 mg Hydrochlorothiazide (Hydrodiuril) 25 mg PO DAILY [facility] Last Admin: 09/30/18 09:14 Dose: 25 mg Hydromorphone HCl (Dilaudid) 0.5 mg IVP Q6H PRN PRN Reason: Pain, severe (8-10) Meropenem (Merrem Iv 1 Gm Premix) 1 gm in 50 mls @ 100 mls/hr IVPB Q12 [facility]; Protocol Stop: 10/07/18 22:01 Last Admin: 09/30/18 09:14 Dose: 100 mls/hr Sodium Chloride (Sodium Chloride 0.9%) 1,000 mls @ 75 mls/hr IV .[id number] [facility] Last Admin: 09/29/18 10:25 Dose: 75 mls/hr Metoprolol Tartrate (Lopressor) 5 mg IVP Q6H PRN PRN Reason: HR >110 Last Admin: 09/29/18 18:45 Dose: 5 mg Pantoprazole Sodium (Protonix Inj) 40 mg IVP Q12 [facility] Last Admin: 09/30/18 09:15 Dose: 40 mg - Labs Labs: 09/30/18 06:15 09/30/18 06:15 PT 16.4 SECONDS (9.4-12.5) H 09/28/18 11:54 INR 1.45 09/28/18 11:54 APTT 37.8 Seconds (26.9-38.3) 09/28/18 11:54 - Constitutional Appears: pleasant elderly female, no acute distress - Head Exam Head Exam: ATRAUMATIC, NORMOCEPHALIC - Eye Exam Eye Exam: EOMI. absent: Scleral icterus - ENT Exam ENT Exam: Mucous Membranes Moist, Normal Oropharynx - Neck Exam Neck exam: Positive for: Normal Inspection. Negative for: Lymphadenopathy - Respiratory Exam Respiratory Exam: Clear to Auscultation Bilateral. absent: Rhonchi, Wheezes - Cardiovascular Exam Cardiovascular Exam: +S1, +S2. absent: Gallop, Rubs - GI/Abdominal Exam GI & Abdominal Exam: Distended, Normal Bowel Sounds, Soft, Tenderness (mildly) - Extremities Exam Extremities exam: Negative for: calf tenderness, pedal edema - Neurological Exam Neurological exam: Alert, Oriented x3 - Skin Skin Exam: Dry, Warm Assessment and Plan - Assessment and Plan (Free Text) Assessment: 82-year-old female with a past medical history of hypertension, GERD, asthma and previous tubular adenomas who presented originally for abdominal pain of multiple days and was found to have a mass in the right lower quadrant. Plan: 1. New right-sided abdominal mass with abdominal pain 2. Sepsis likely secondary to pancolitis 3. Downtrending hemoglobin 4. Hypertension 5. GERD 6. Asthma Patient currently scheduled to have a pelvic biopsy at 3 PM by IR. Pelvic MRI w as performed and shows a uterine fibroids including large left-sided exophytic fibroid, mural thickening and enhancement of the terminal ileum most consistent with inflammatory bowel disease, and left-sided inguinal region hernia with a small amount of edema and enhancement of the herniated fat. Now that patient is no longer n.p.o. we have continued her hydrochlorothiazide 25 g. Continue as needed metoprolol 5 mg every 6 for heart rate greater than 110. continue with meropenem. ID recommendations reviewed and appreciated. Continue with docusate. Continue vitamin D. Hemoglobin has been stable. Breathing well on room air with only intermittent nebulizer use. Patient was seen and examined and case was discussed with attending physician. <Angel Matthews S - Last Filed: 09/30/18 17:56> Objective - Vital Signs/Intake and Output Vital Signs (last 24 hours): Temp Pulse Resp BP Pulse Ox 98.1 F 93 H 19 162/77 H 94 L 09/30/18 17:12 09/30/18 17:12 09/30/18 17:12 09/30/18 17:12 09/30/18 17:12 Intake and Output: 09/30/18 09/30/18 06:59 18:59 Intake Total 240 75 Balance 240 75 - Medications Medications: Current Medications Acetaminophen (Tylenol 325mg Tab) 650 mg PO Q6H PRN PRN Reason: Fever >100.4 F Albuterol/Ipratropium (Duoneb 3 Mg/0.5 Mg (3 Ml) Ud) 3 ml IH [id number] PRN PRN Reason: Shortness of Breath Last Admin: 09/30/18 11:37 Dose: 3 ml Ascorbic Acid (Vitamin C 500 Mg Tab) 500 mg PO DAILY [facility] Last Admin: 09/30/18 09:15 Dose: 500 mg Cholecalciferol (Vitamin D) 1,000 intlu PO DAILY [facility] Last Admin: 09/30/18 09:16 Dose: 1,000 intlu Docusate Sodium (Colace) 100 mg PO DAILY [facility] Last Admin: 09/30/18 09:14 Dose: 100 mg Hydrochlorothiazide (Hydrodiuril) 25 mg PO DAILY [facility] Last Admin: 09/30/18 09:14 Dose: 25 mg Hydromorphone HCl (Dilaudid) 0.5 mg IVP Q6H PRN PRN Reason: Pain, severe (8-10) Meropenem (Merrem Iv 1 Gm Premix) 1 gm in 50 mls @ 100 mls/hr IVPB Q12 [facility]; Protocol Stop: 10/07/18 22:01 Last Admin: 09/30/18 09:14 Dose: 100 mls/hr Sodium Chloride (Sodium Chloride 0.9%) 1,000 mls @ 75 mls/hr IV .[id number] [facility] Last Admin: 09/30/18 13:05 Dose: 75 mls/hr Sodium Chloride (Sodium Chloride 0.45%) 1,000 mls @ 80 mls/hr IV .[id number] [facility] Stop: 09/30/18 21:00 Last Admin: 09/30/18 17:07 Dose: 80 mls/hr Metoprolol Tartrate (Lopressor) 5 mg IVP Q6H PRN PRN Reason: HR >110 Last Admin: 09/30/18 13:04 Dose: 5 mg Ondansetron HCl (Zofran Inj) 4 mg IVP Q6H PRN PRN Reason: Nausea/Vomiting Pantoprazole Sodium (Protonix Inj) 40 mg IVP Q12 [facility] Last Admin: 09/30/18 09:15 Dose: 40 mg - Labs Labs: 09/30/18 06:15 09/30/18 06:15 PT 16.4 SECONDS (9.4-12.5) H 09/28/18 11:54 INR 1.45 09/28/18 11:54 APTT 37.8 Seconds (26.9-38.3) 09/28/18 11:54 Assessment and Plan - Assessment and Plan (Free Text) Plan: Pt seen and examined by me. I have reviewed the note of the medical insurance verifier and I agree with it. I have discussed the assessment and plan with the resident. I have reviewed the medications and the last labs.
[2018-09-30] MEDS: Albuterol-Ipratrop 3 mg / 0.5 (3 ml) UD IH PRN (11:37)
[2018-09-30] MEDS: Metoprolol 1 mg/ml Inj IVP PRN (13:04)
[2018-09-30] MEDS: Sodium Chloride 0.9% 1,000 ML IV SCH (13:05)
[2018-09-30] MEDS ORDERED: Midazolam 2 MG/2 ML VIAL ONE (14:32)
[2018-09-30] MEDS ORDERED: Midazolam 2 MG/2 ML VIAL IVP ONE (14:50)
[2018-09-30] MEDS ORDERED: Sodium Chloride 0.45% 1,000 ML IV SCH (15:00)
--- NOTE | 2018-09-30 18:59 | CT ---
PROCEDURE: CT guided right pelvic biopsy. HISTORY: 9 cm right adnexal mass. Evaluate for malignancy PHYSICIAN(S): Jonas William MD. TECHNIQUE: The relative risks and indications of the procedure were explained to the patient and consent obtained. The patient was placed prone on the CT scanner and preliminary images through the pelvis obtained. Conscious sedation and monitoring were provided throughout the procedure by a nurse. There is a 4.5 x 9 cm mass in the right adnexa.. A right trans gluteal approach was selected and the area prepped and draped in the usual sterile fashion. 1% Xylocaine was used to anesthetize the skin and soft tissues. A 17-gauge guiding needle was advanced into the 9 cm right adnexal mass. Its position was confirmed with CT. Using coaxial technique, multiple core biopsies were obtained. The postprocedure images show no evidence of significant hemorrhage. IMPRESSION: 1. CT-guided right adnexal mass biopsy as described above.
--- NOTE | 2018-09-30 21:23 | PN ---
DATE: 09/30/2018 The patient was seen and examined. I do agree with the note of the medical case worker. I was involved in the plan of care. The patient has a new right-sided mass that is going to need biopsy. Dr. Jonas William had been consulted. The patient is on hydrochlorothiazide for the hypertension. She is on metoprolol. She was tachycardic. The patient had an MRI that showed uterine fibroids and enlarged left-sided atrophic fibroid. There was mural thickening and enhancement of the terminal ileum, most consistent with inflammatory bowel disease. The patient is currently receiving Dilaudid for pain. The pain is better. I will discontinue the patient's Dilaudid at this point. The patient is on nebulizer treatment as needed and on meropenem for IV antibiotics. The patient is on IV fluids. She is on a liquid diet. I will discontinue the patient's IV fluids at this point. I will discontinue the patient's Protonix. The patient is on vitamin D. She is on liquid diet. We will await further input from the specialist. The patient had blood cultures and urine cultures that were negative. Angel Matthews MD
[2018-10-01] MEDS: Albuterol-Ipratrop 3 mg / 0.5 (3 ml) UD IH PRN ×2 (04:18→21:48)
[2018-10-01 08:01] LABS: BASO # 0.02 K/mm3 (0.0-2.0); BASO % 0.3 % (0.0-3.0); EOS # 0.2 (0.0-0.7); EOS % 2.3 % (1.5-5.0); LYMPH # 1.2 (1.2-3.4); LYMPH % 15.2 % (22.0-35.0); MEAN CELL VOLUME 92.6 fl (80.0-105.0); MEAN CORPUSCULAR HEMOGLOBIN 30.1 pg (25.0-35.0); MEAN CORPUSCULAR HGB CONC 32.4 g/dl (31.0-37.0); MEAN PLATELET VOLUME 9.4 fl (7.0-11.0); MONO # 0.5 (0.1-0.6); MONO % 6.8 % (1.0-6.0); RBC 3.66 10^6/uL (3.5-6.1); WHITE BLOOD COUNT 7.9 10^3/uL (4.5-11.0)
[2018-10-01 08:15] LABS: ALB/GLOB RATIO 0.9 (1.1-1.8); ALBUMIN 2.7 g/dL (3.0-4.8); ALT/SGPT 25 U/L (7-56); AST/SGOT 30 U/L (14-36); BLOOD UREA NITROGEN 9 mg/dL (7-21); CALCIUM 8.7 mg/dL (8.4-10.5); GFR NON-AFRICAN AMERICAN 60
[2018-10-01] MEDS ORDERED: Potassium Chloride 20 mEq ER Tab PO ONE (08:29)
[2018-10-01] MEDS: Meropenem IV 1 gm in NS 1 GM/50 ML BAG IVPB SCH ×2 (09:10→21:36)
[2018-10-01] MEDS: Cholecalciferol 1,000 INTLU TAB PO SCH (09:11)
--- NOTE | 2018-10-01 11:30 | CP.PCM.PN ---
<Uziel Valles - Last Filed: 10/01/18 11:31> Subjective - Date & Time of Evaluation Date of Evaluation: 10/01/18 Time of Evaluation: 10:25 - Subjective Subjective: Uziel Valles- Internal Medicine Resident-Progress Note on Behalf of Dr. Campos Subjective: Patient seen and examined at bedside. No acute events since admission. States RLQ/LLQ abdominal pain have improved relative to pain on admission. Admits to baseline discomfort at biopsy site. Offers no new complaints at this time. Denies nausea, vomiting, diarrhea, bright red blood per rectum, and change in stool caliber. Further denies fever, chills, chest pain, SOB, and urinary symptoms. 12 point ROS negative except as indicated in the HPI Physical Examination: - Constitutional Appears: Non-toxic, No Acute Distress - Eye Exam Eye Exam: EOMI - ENT Exam ENT Exam: Mucous Membranes Moist - Respiratory Exam Respiratory Exam: Clear to Auscultation Bilateral, NORMAL BREATHING PATTERN - Cardiovascular Exam Cardiovascular Exam: Tachycardia, +S1, +S2 - GI/Abdominal Exam GI & Abdominal Exam: Soft, non-tender. absent: Distended, Firm, Guarding, Rebound, Rigid - Extremities Exam Extremities exam: Negative for: pedal edema, tenderness - Neurological Exam Neurological exam: Alert, Oriented x3 - Psychiatric Exam Psychiatric exam: Normal Affect, Normal Mood - Skin Skin Exam: Dry, Normal Color, Warm Assessment and Plan: Patient is a 82 year old female with a past medical history of GERD, asthma, diverticulosis, internal hemorrhoids, and colonic polyps who was admitted for evaluation and treatment of abdominal pain. -RLQ lesion likely uterine fibroid based on imaging -Anemia- stable, No evidence of active GI bleed Imaging Studies Reviewed: 10/15/2017 colonoscopy revealed diverticulosis of the entire examined colon, bleeding internal hemorrhoids, one 8mm polyp in the transverse colon and one 5mm polyp in the sigmoid colon. Both tubular adenoma on pathology. 09/27/2018 CT abdomen and pelvis with oral and IV contrast-1. The proximal appendix is identified and normal in caliber however the entire appendix is not well delineated. There is abnormal soft tissue at the base of the cecum in the right lower quadrant and extending to the right adnexa with extensive s urrounding inflammatory changes. 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 2. Fibroid uterus. 3. extensive colonic diverticulosis without CT evidence for acute diverticulitis MRI pelvis with and without IV contrast- uterine fibroids including large left neck sided exophytic fibroid, mural thickening and enhancement of the terminal ileum, left sided inguinal hernia with a small amount of edema and herniated fat 10/01/2018 CT guided biopsy- awaiting path report - continue on regular diet - await path report on bx - no acute GI intervention required at this time Patient case discussed with and plan approved by attending physician, Dr. Campos. Objective - Vital Signs/Intake and Output Vital Signs (last 24 hours): Temp Pulse Resp BP Pulse Ox 97.9 F 99 H 20 165/81 H 94 L 10/01/18 08:06 10/01/18 10:00 10/01/18 08:06 10/01/18 09:06 10/01/18 08:06 Intake and Output: 10/01/18 10/01/18 06:59 18:59 Intake Total 120 Balance 120 - Medications Medications: Current Medications Acetaminophen (Tylenol 325mg Tab) 650 mg PO Q6H PRN PRN Reason: Fever >100.4 F Albuterol/Ipratropium (Duoneb 3 Mg/0.5 Mg (3 Ml) Ud) 3 ml IH [id number] PRN PRN Reason: Shortness of Breath Last Admin: 10/01/18 04:18 Dose: 3 ml Ascorbic Acid (Vitamin C 500 Mg Tab) 500 mg PO DAILY [facility] Last Admin: 10/01/18 09:11 Dose: 500 mg Cholecalciferol (Vitamin D) 1,000 intlu PO DAILY [facility] Last Admin: 10/01/18 09:11 Dose: 1,000 intlu Docusate Sodium (Colace) 100 mg PO DAILY [facility] Last Admin: 10/01/18 09:12 Dose: 100 mg Hydrochlorothiazide (Hydrodiuril) 25 mg PO DAILY [facility] Last Admin: 10/01/18 09:06 Dose: 25 mg Meropenem (Merrem Iv 1 Gm Premix) 1 gm in 50 mls @ 100 mls/hr IVPB Q12 [facility]; Protocol Stop: 10/07/18 22:01 Last Admin: 10/01/18 09:10 Dose: 100 mls/hr Losartan Potassium (Cozaar) 25 mg PO DAILY [facility] Last Admin: 10/01/18 09:06 Dose: 25 mg Metoprolol Tartrate (Lopressor) 5 mg IVP Q6H PRN PRN Reason: HR >110 Last Admin: 09/30/18 13:04 Dose: 5 mg Ondansetron HCl (Zofran Inj) 4 mg IVP Q6H PRN PRN Reason: Nausea/Vomiting - Labs Labs: 10/01/18 07:45 10/01/18 07:45 PT 16.4 SECONDS (9.4-12.5) H 09/28/18 11:54 INR 1.45 09/28/18 11:54 APTT 37.8 Seconds (26.9-38.3) 09/28/18 11:54 <Chase Campos V - Last Filed: 10/01/18 20:22> Objective - Vital Signs/Intake and Output Vital Signs (last 24 hours): Temp Pulse Resp BP Pulse Ox 97.4 F L 98 H 20 129/57 L 97 10/01/18 16:37 10/01/18 18:00 10/01/18 16:37 10/01/18 16:37 10/01/18 16:37 Intake and Output: 10/01/18 10/02/18 18:59 06:59 Intake Total 120 Balance 120 - Medications Medications: Current Medications Acetaminophen (Tylenol 325mg Tab) 650 mg PO Q6H PRN PRN Reason: Fever >100.4 F Albuterol/Ipratropium (Duoneb 3 Mg/0.5 Mg (3 Ml) Ud) 3 ml IH [id number] PRN PRN Reason: Shortness of Breath Last Admin: 10/01/18 04:18 Dose: 3 ml Ascorbic Acid (Vitamin C 500 Mg Tab) 500 mg PO DAILY [facility] Last Admin: 10/01/18 09:11 Dose: 500 mg Cholecalciferol (Vitamin D) 1,000 intlu PO DAILY [facility] Last Admin: 10/01/18 09:11 Dose: 1,000 intlu Docusate Sodium (Colace) 100 mg PO DAILY [facility] Last Admin: 10/01/18 09:12 Dose: 100 mg Hydrochlorothiazide (Hydrodiuril) 25 mg PO DAILY [facility] Last Admin: 10/01/18 09:06 Dose: 25 mg Meropenem (Merrem Iv 1 Gm Premix) 1 gm in 50 mls @ 100 mls/hr IVPB Q12 [facility]; Protocol Stop: 10/07/18 22:01 Last Admin: 10/01/18 09:10 Dose: 100 mls/hr Losartan Potassium (Cozaar) 25 mg PO DAILY [facility] Last Admin: 10/01/18 09:06 Dose: 25 mg Metoprolol Tartrate (Lopressor) 5 mg IVP Q6H PRN PRN Reason: HR >110 Last Admin: 09/30/18 13:04 Dose: 5 mg Ondansetron HCl (Zofran Inj) 4 mg IVP Q6H PRN PRN Reason: Nausea/Vomiting - Labs Labs: 10/01/18 07:45 10/01/18 07:45 PT 16.4 SECONDS (9.4-12.5) H 09/28/18 11:54 INR 1.45 09/28/18 11:54 APTT 37.8 Seconds (26.9-38.3) 09/28/18 11:54 Attending/Attestation - Attestation I have personally seen and examined this patient.: Yes I have fully participated in the care of the patient.: Yes I have reviewed all pertinent clinical information, including history, physical exam and plan: Yes Notes (Text): This is an addendum to the GI progress note dictated by the resident. This patient was seen and evaluated along with the resident earlier today. MRI scan was reviewed. Status post biopsy of the adnexal mass by the interventional radiologist. Patient denies any bowel symptoms. No change of bowel habits no bleeding per rectum before that. Patient's previous colonoscopies reports were again reviewed. Clinically patient's picture does not correlate like inflammatory bowel disease. Will await for the pathology report. We will request for celiac disease profile and also IBD serology Patient would benefit from elective colonoscopy evaluation with the terminal ileal intubation to evaluate the abnormality seen in the MRI scan. This could be infectious vs inflammatory, more towards infectious etiology. Continue antibiotics as per ID 10/01/18 20:18
--- NOTE | 2018-10-01 12:47 | CP.PCM.PN ---
<Diana Philippe - Last Filed: 10/01/18 12:43> Subjective - Date & Time of Evaluation Date of Evaluation: 10/01/18 Time of Evaluation: 09:45 - Subjective Subjective: General Surgery Dr. Garrido Pt seen and examined @bedside. No acute events overnight. Pt reports pain at IR Bx site as well as continued discomfort in RUQ/RLQ. tolerating CLD. (+)BM, Flatus. Objective - Vital Signs/Intake and Output Vital Signs (last 24 hours): Temp Pulse Resp BP Pulse Ox 97.9 F 99 H 20 165/81 H 94 L 10/01/18 08:06 10/01/18 10:00 10/01/18 08:06 10/01/18 09:06 10/01/18 08:06 Intake and Output: 10/01/18 10/01/18 06:59 18:59 Intake Total 120 Balance 120 - Medications Medications: Current Medications Acetaminophen (Tylenol 325mg Tab) 650 mg PO Q6H PRN PRN Reason: Fever >100.4 F Albuterol/Ipratropium (Duoneb 3 Mg/0.5 Mg (3 Ml) Ud) 3 ml IH [id number] PRN PRN Reason: Shortness of Breath Last Admin: 10/01/18 04:18 Dose: 3 ml Ascorbic Acid (Vitamin C 500 Mg Tab) 500 mg PO DAILY [facility] Last Admin: 10/01/18 09:11 Dose: 500 mg Cholecalciferol (Vitamin D) 1,000 intlu PO DAILY [facility] Last Admin: 10/01/18 09:11 Dose: 1,000 intlu Docusate Sodium (Colace) 100 mg PO DAILY [facility] Last Admin: 10/01/18 09:12 Dose: 100 mg Hydrochlorothiazide (Hydrodiuril) 25 mg PO DAILY [facility] Last Admin: 10/01/18 09:06 Dose: 25 mg Meropenem (Merrem Iv 1 Gm Premix) 1 gm in 50 mls @ 100 mls/hr IVPB Q12 [facility]; Protocol Stop: 10/07/18 22:01 Last Admin: 10/01/18 09:10 Dose: 100 mls/hr Losartan Potassium (Cozaar) 25 mg PO DAILY [facility] Last Admin: 10/01/18 09:06 Dose: 25 mg Metoprolol Tartrate (Lopressor) 5 mg IVP Q6H PRN PRN Reason: HR >110 Last Admin: 09/30/18 13:04 Dose: 5 mg Ondansetron HCl (Zofran Inj) 4 mg IVP Q6H PRN PRN Reason: Nausea/Vomiting - Labs Labs: 10/01/18 07:45 10/01/18 07:45 PT 16.4 SECONDS (9.4-12.5) H 09/28/18 11:54 INR 1.45 09/28/18 11:54 APTT 37.8 Seconds (26.9-38.3) 09/28/18 11:54 - Constitutional Appears: Non-toxic, No Acute Distress - Head Exam Head Exam: NORMAL INSPECTION - ENT Exam ENT Exam: Mucous Membranes Moist - Respiratory Exam Respiratory Exam: NORMAL BREATHING PATTERN. absent: Accessory Muscle Use, Respiratory Distress - Cardiovascular Exam Cardiovascular Exam: absent: Bradycardia, Tachycardia - GI/Abdominal Exam GI & Abdominal Exam: Soft, Tenderness (TTP RUQ/RLQ). absent: Distended, Firm, Guarding, Rigid, Rebound - Extremities Exam Extremities Exam: Normal Inspection - Neurological Exam Neurological Exam: Alert, Awake, Oriented x3 - Psychiatric Exam Psychiatric exam: Normal Affect, Normal Mood - Skin Skin Exam: Dry, Intact, Normal Color, Warm Assessment and Plan - Assessment and Plan (Free Text) Assessment: 82 y/o F w/ improved abd pain 2/2 possible diverticulitis vs nonspecific rn obgyn mass Plan: - advance diet as tolerated - cont non-narcotic pain management - f/u IR Bx - cont IV Abx per ID - f/u GI recs - recommend [employer] [employer] consult - Encourage OOB to chair/Amb - PT/OT Pt discussed w/ Dr. Radhika Philippe PGY3 <Chaz Garrido - Last Filed: 10/02/18 19:31> Objective - Vital Signs/Intake and Output Vital Signs (last 24 hours): Temp Pulse Resp BP Pulse Ox 97.6 F 101 H 20 132/71 98 10/02/18 16:42 10/02/18 18:00 10/02/18 16:42 10/02/18 16:42 10/02/18 16:42 - Medications Medications: Current Medications Acetaminophen (Tylenol 325mg Tab) 650 mg PO Q6H PRN PRN Reason: Fever >100.4 F Albuterol/Ipratropium (Duoneb 3 Mg/0.5 Mg (3 Ml) Ud) 3 ml IH [id number] PRN PRN Reason: Shortness of Breath Last Admin: 10/02/18 16:27 Dose: 3 ml Ascorbic Acid (Vitamin C 500 Mg Tab) 500 mg PO DAILY [facility] Last Admin: 10/02/18 10:51 Dose: 500 mg Cholecalciferol (Vitamin D) 1,000 intlu PO DAILY [facility] Last Admin: 10/02/18 10:51 Dose: 1,000 intlu Docusate Sodium (Colace) 100 mg PO DAILY [facility] Last Admin: 10/02/18 10:51 Dose: 100 mg Hydrochlorothiazide (Hydrodiuril) 25 mg PO DAILY [facility] Last Admin: 10/02/18 10:51 Dose: 25 mg Meropenem (Merrem Iv 1 Gm Premix) 1 gm in 50 mls @ 100 mls/hr IVPB Q12 [facility]; Protocol Stop: 10/07/18 22:01 Last Admin: 10/02/18 10:51 Dose: 100 mls/hr Losartan Potassium (Cozaar) 25 mg PO DAILY [facility] Last Admin: 10/02/18 10:51 Dose: 25 mg Metoprolol Tartrate (Lopressor) 5 mg IVP Q6H PRN PRN Reason: HR >110 Last Admin: 10/02/18 10:52 Dose: 5 mg Ondansetron HCl (Zofran Inj) 4 mg IVP Q6H PRN PRN Reason: Nausea/Vomiting - Labs Labs: 10/01/18 07:45 10/01/18 07:45 PT 16.4 SECONDS (9.4-12.5) H 09/28/18 11:54 INR 1.45 09/28/18 11:54 APTT 37.8 Seconds (26.9-38.3) 09/28/18 11:54 Assessment and Plan - Assessment and Plan (Free Text) Plan: Patient was seen, evaluated and examined by me at the bedside. I agree with assessment and plan as stated in the resident's note.
--- NOTE | 2018-10-01 14:10 | CP.PCM.PN ---
<Casper Meyer - Last Filed: 10/01/18 14:55> Subjective - Date & Time of Evaluation Date of Evaluation: 10/01/18 Time of Evaluation: 10:30 - Subjective Subjective: Infectious disease progress note: Patient seen and examined at bedside. No acute events overnight. Patient went for biopsy today. Denies any pain at this time. No other complaints. 12 point ROS performed and negative unless stated above. Objective - Vital Signs/Intake and Output Vital Signs (last 24 hours): Temp Pulse Resp BP Pulse Ox 97.9 F 99 H 20 165/81 H 94 L 10/01/18 08:06 10/01/18 10:00 10/01/18 08:06 10/01/18 09:06 10/01/18 08:06 Intake and Output: 10/01/18 10/01/18 06:59 18:59 Intake Total 120 Balance 120 - Medications Medications: Current Medications Acetaminophen (Tylenol 325mg Tab) 650 mg PO Q6H PRN PRN Reason: Fever >100.4 F Albuterol/Ipratropium (Duoneb 3 Mg/0.5 Mg (3 Ml) Ud) 3 ml IH [id number] PRN PRN Reason: Shortness of Breath Last Admin: 10/01/18 04:18 Dose: 3 ml Ascorbic Acid (Vitamin C 500 Mg Tab) 500 mg PO DAILY [facility] Last Admin: 10/01/18 09:11 Dose: 500 mg Cholecalciferol (Vitamin D) 1,000 intlu PO DAILY [facility] Last Admin: 10/01/18 09:11 Dose: 1,000 intlu Docusate Sodium (Colace) 100 mg PO DAILY [facility] Last Admin: 10/01/18 09:12 Dose: 100 mg Hydrochlorothiazide (Hydrodiuril) 25 mg PO DAILY [facility] Last Admin: 10/01/18 09:06 Dose: 25 mg Meropenem (Merrem Iv 1 Gm Premix) 1 gm in 50 mls @ 100 mls/hr IVPB Q12 [facility]; Protocol Stop: 10/07/18 22:01 Last Admin: 10/01/18 09:10 Dose: 100 mls/hr Losartan Potassium (Cozaar) 25 mg PO DAILY [facility] Last Admin: 10/01/18 09:06 Dose: 25 mg Metoprolol Tartrate (Lopressor) 5 mg IVP Q6H PRN PRN Reason: HR >110 Last Admin: 09/30/18 13:04 Dose: 5 mg Ondansetron HCl (Zofran Inj) 4 mg IVP Q6H PRN PRN Reason: Nausea/Vomiting - Labs Labs: 10/01/18 07:45 10/01/18 07:45 PT 16.4 SECONDS (9.4-12.5) H 09/28/18 11:54 INR 1.45 09/28/18 11:54 APTT 37.8 Seconds (26.9-38.3) 09/28/18 11:54 - Constitutional Appears: No Acute Distress - Head Exam Head Exam: ATRAUMATIC, NORMOCEPHALIC - Eye Exam Eye Exam: EOMI - ENT Exam ENT Exam: Mucous Membranes Moist - Respiratory Exam Respiratory Exam: Clear to Ausculation Bilateral. absent: Rales, Wheezes - Cardiovascular Exam Cardiovascular Exam: REGULAR RHYTHM, +S1, +S2 - GI/Abdominal Exam GI & Abdominal Exam: Soft. absent: Tenderness - Extremities Exam Extremities Exam: absent: Calf Tenderness - Neurological Exam Neurological Exam: Alert, Awake, Oriented x3 - Psychiatric Exam Psychiatric exam: Normal Mood - Skin Skin Exam: Dry, Warm Assessment and Plan - Assessment and Plan (Free Text) Assessment: Sepsis - Right lower quadrant abdominal pain 2/2 cecal mass versus appendicitis s/p biopsy Hypertension GERD Asthma Continue with meropenem (PCN allergy) MRI showed fibroid, terminal iliuem wall thickening Cecal mass s/p biopsy awaiting pathology F/u HIV - neg RPR - neg F/u IR recs for RLQ mass / collection - would rec sending out for fungal smear and AFP in addition to the cultures Follow-up blood and urine culture Follow-up further septic work-up Follow-up [employer], surgery and gastroenterology recs Continue to monitor for any changes Case and plan to be reviewed and discussed with Dr. Kong. <Naldo Kong - Last Filed: 10/01/18 14:59> Objective - Vital Signs/Intake and Output Vital Signs (last 24 hours): Temp Pulse Resp BP Pulse Ox 97.9 F 99 H 20 165/81 H 94 L 10/01/18 08:06 10/01/18 10:00 10/01/18 08:06 10/01/18 09:06 10/01/18 08:06 Intake and Output: 10/01/18 10/01/18 06:59 18:59 Intake Total 120 Balance 120 - Medications Medications: Current Medications Acetaminophen (Tylenol 325mg Tab) 650 mg PO Q6H PRN PRN Reason: Fever >100.4 F Albuterol/Ipratropium (Duoneb 3 Mg/0.5 Mg (3 Ml) Ud) 3 ml IH [id number] PRN PRN Reason: Shortness of Breath Last Admin: 10/01/18 04:18 Dose: 3 ml Ascorbic Acid (Vitamin C 500 Mg Tab) 500 mg PO DAILY [facility] Last Admin: 10/01/18 09:11 Dose: 500 mg Cholecalciferol (Vitamin D) 1,000 intlu PO DAILY [facility] Last Admin: 10/01/18 09:11 Dose: 1,000 intlu Docusate Sodium (Colace) 100 mg PO DAILY [facility] Last Admin: 10/01/18 09:12 Dose: 100 mg Hydrochlorothiazide (Hydrodiuril) 25 mg PO DAILY [facility] Last Admin: 10/01/18 09:06 Dose: 25 mg Meropenem (Merrem Iv 1 Gm Premix) 1 gm in 50 mls @ 100 mls/hr IVPB Q12 [facility]; Protocol Stop: 10/07/18 22:01 Last Admin: 10/01/18 09:10 Dose: 100 mls/hr Losartan Potassium (Cozaar) 25 mg PO DAILY [facility] Last Admin: 10/01/18 09:06 Dose: 25 mg Metoprolol Tartrate (Lopressor) 5 mg IVP Q6H PRN PRN Reason: HR >110 Last Admin: 09/30/18 13:04 Dose: 5 mg Ondansetron HCl (Zofran Inj) 4 mg IVP Q6H PRN PRN Reason: Nausea/Vomiting - Labs Labs: 10/01/18 07:45 10/01/18 07:45 PT 16.4 SECONDS (9.4-12.5) H 09/28/18 11:54 INR 1.45 09/28/18 11:54 APTT 37.8 Seconds (26.9-38.3) 09/28/18 11:54 Attending/Attestation - Attestation I have personally seen and examined this patient.: Yes I have fully participated in the care of the patient.: Yes I have reviewed all pertinent clinical information, including history, physical exam and plan: Yes
--- NOTE | 2018-10-01 14:54 | CP.PCM.PN ---
<Delfino Roberts - Last Filed: 10/01/18 14:48> Subjective - Date & Time of Evaluation Date of Evaluation: 10/01/18 Time of Evaluation: 07:50 - Subjective Subjective: Delfino Roberts D.O. PGY-3, Internal Medicine Resident, Dr. Matthews's Service, Progress Note 82-year-old female with a past medical history of hypertension, GERD, asthma and previous tubular adenomas who presented originally for abdominal pain of multiple days and was found to have a mass in the right lower quadrant. Patient was seen and examined at bedside. States at times still has some RLQ discomfort. Biopsy went well. No other complaints. Objective - Vital Signs/Intake and Output Vital Signs (last 24 hours): Temp Pulse Resp BP Pulse Ox 97.9 F 99 H 20 165/81 H 94 L 10/01/18 08:06 10/01/18 10:00 10/01/18 08:06 10/01/18 09:06 10/01/18 08:06 Intake and Output: 10/01/18 10/01/18 06:59 18:59 Intake Total 120 Balance 120 - Medications Medications: Current Medications Acetaminophen (Tylenol 325mg Tab) 650 mg PO Q6H PRN PRN Reason: Fever >100.4 F Albuterol/Ipratropium (Duoneb 3 Mg/0.5 Mg (3 Ml) Ud) 3 ml IH [id number] PRN PRN Reason: Shortness of Breath Last Admin: 10/01/18 04:18 Dose: 3 ml Ascorbic Acid (Vitamin C 500 Mg Tab) 500 mg PO DAILY [facility] Last Admin: 10/01/18 09:11 Dose: 500 mg Cholecalciferol (Vitamin D) 1,000 intlu PO DAILY [facility] Last Admin: 10/01/18 09:11 Dose: 1,000 intlu Docusate Sodium (Colace) 100 mg PO DAILY [facility] Last Admin: 10/01/18 09:12 Dose: 100 mg Hydrochlorothiazide (Hydrodiuril) 25 mg PO DAILY [facility] Last Admin: 10/01/18 09:06 Dose: 25 mg Meropenem (Merrem Iv 1 Gm Premix) 1 gm in 50 mls @ 100 mls/hr IVPB Q12 [facility]; P rotocol Stop: 10/07/18 22:01 Last Admin: 10/01/18 09:10 Dose: 100 mls/hr Losartan Potassium (Cozaar) 25 mg PO DAILY [facility] Last Admin: 10/01/18 09:06 Dose: 25 mg Metoprolol Tartrate (Lopressor) 5 mg IVP Q6H PRN PRN Reason: HR >110 Last Admin: 09/30/18 13:04 Dose: 5 mg Ondansetron HCl (Zofran Inj) 4 mg IVP Q6H PRN PRN Reason: Nausea/Vomiting - Labs Labs: 10/01/18 07:45 10/01/18 07:45 PT 16.4 SECONDS (9.4-12.5) H 09/28/18 11:54 INR 1.45 09/28/18 11:54 APTT 37.8 Seconds (26.9-38.3) 09/28/18 11:54 - Constitutional Appears: pleasant elderly female, no acute distress - Head Exam Head Exam: ATRAUMATIC, NORMOCEPHALIC - Eye Exam Eye Exam: EOMI. absent: Scleral icterus - ENT Exam ENT Exam: Mucous Membranes Moist, Normal Oropharynx - Neck Exam Neck exam: Positive for: Normal Inspection. Negative for: Lymphadenopathy - Respiratory Exam Respiratory Exam: Clear to Auscultation Bilateral. absent: Rhonchi, Wheezes - Cardiovascular Exam Cardiovascular Exam: +S1, +S2. absent: Gallop, Rubs - GI/Abdominal Exam GI & Abdominal Exam: Distended, Normal Bowel Sounds, Soft, Tenderness (mildly) - Extremities Exam Extremities exam: Negative for: calf tenderness, pedal edema - Neurological Exam Neurological exam: Alert, Oriented x3 - Skin Skin Exam: Dry, Warm Assessment and Plan - Assessment and Plan (Free Text) Assessment: 82-year-old female with a past medical history of hypertension, GERD, asthma and previous tubular adenomas who presented originally for abdominal pain of multiple days and was found to have a mass in the right lower quadrant. Plan: 1. New right-sided abdominal mass with abdominal pain 2. Sepsis likely secondary to pancolitis 3. Normocytic anemiea 4. Hypertension 5. GERD 6. Asthma Patient is status post biopsy of right lower quadrant mass with interventional radiology. Pending pathology. GI is following, note reviewed and recommendations appreciated. Patient's diet has been advanced to regular diet. Surgery is following as well, note reviewed and recommendations appreciated. For her sepsis she is currently on meropenem. Infectious disease notes reviewed and appreciated as well. HIV has been negative as was RPR and FTA-ABS. Mild hypokalemia today, was repleted. Will recheck CMP tomorrow morning. Continue with as needed nebulizers for her asthma. Continue with vitamin C supplementation as well as vitamin D. Hgb has been stable. Her blood pressure has been somewhat elevated she is she was started on losartan as she takes telm isartan at home. Continue her hydrochlorothiazide. Continue as needed metoprolol. Patient was seen and examined and case was discussed with attending physician. <Angel Matthews S - Last Filed: 10/01/18 15:14> Objective - Vital Signs/Intake and Output Vital Signs (last 24 hours): Temp Pulse Resp BP Pulse Ox 97.9 F 99 H 20 165/81 H 94 L 10/01/18 08:06 10/01/18 10:00 10/01/18 08:06 10/01/18 09:06 10/01/18 08:06 Intake and Output: 10/01/18 10/01/18 06:59 18:59 Intake Total 120 Balance 120 - Medications Medications: Current Medications Acetaminophen (Tylenol 325mg Tab) 650 mg PO Q6H PRN PRN Reason: Fever >100.4 F Albuterol/Ipratropium (Duoneb 3 Mg/0.5 Mg (3 Ml) Ud) 3 ml IH [id number] PRN PRN Reason: Shortness of Breath Last Admin: 10/01/18 04:18 Dose: 3 ml Ascorbic Acid (Vitamin C 500 Mg Tab) 500 mg PO DAILY [facility] Last Admin: 10/01/18 09:11 Dose: 500 mg Cholecalciferol (Vitamin D) 1,000 intlu PO DAILY [facility] Last Admin: 10/01/18 09:11 Dose: 1,000 intlu Docusate Sodium (Colace) 100 mg PO DAILY [facility] Last Admin: 10/01/18 09:12 Dose: 100 mg Hydrochlorothiazide (Hydrodiuril) 25 mg PO DAILY [facility] Last Admin: 10/01/18 09:06 Dose: 25 mg Meropenem (Merrem Iv 1 Gm Premix) 1 gm in 50 mls @ 100 mls/hr IVPB Q12 [facility]; Protocol Stop: 10/07/18 22:01 Last Admin: 10/01/18 09:10 Dose: 100 mls/hr Losartan Potassium (Cozaar) 25 mg PO DAILY [facility] Last Admin: 10/01/18 09:06 Dose: 25 mg Metoprolol Tartrate (Lopressor) 5 mg IVP Q6H PRN PRN Reason: HR >110 Last Admin: 09/30/18 13:04 Dose: 5 mg Ondansetron HCl (Zofran Inj) 4 mg IVP Q6H PRN PRN Reason: Nausea/Vomiting - Labs Labs: 10/01/18 07:45 10/01/18 07:45 PT 16.4 SECONDS (9.4-12.5) H 09/28/18 11:54 INR 1.45 09/28/18 11:54 APTT 37.8 Seconds (26.9-38.3) 09/28/18 11:54 Assessment and Plan - Assessment and Plan (Free Text) Plan: Pt seen and examined by me. I have reviewed the note of the medical aide and I agree with it. I have discussed the assessment and plan with the resident. I have reviewed the medications and the last labs. Pt has a abd mass that was biopsied. She is feeling better. The sepsis is improving. She has been started on Losartan for her BP. She is also on HCTZ for her BP. Hypokalemia was treated with K. ID input appreciated. Pain is controlled Will advance diet.
--- NOTE | 2018-10-02 08:44 | CP.PCM.PN ---
<Uziel Valles - Last Filed: 10/02/18 13:07> Subjective - Date & Time of Evaluation Date of Evaluation: 09/25/18 Time of Evaluation: 08:41 - Subjective Subjective: Uziel Valles- Internal Medicine Resident-Progress Note on Behalf of Dr. Campos Subjective: Patient seen and examined at bedside. No acute events overnight. Admits to tolerating diet. States RLQ/LLQ abdominal pain have improved relative to pain on admission. Offers no new complaints at this time. Denies nausea, vomiting, diarrhea, bright red blood per rectum, and change in stool caliber. Further denies fever, chills, chest pain, SOB, and urinary symptoms. 12 point ROS negative except as indicated in the HPI Physical Examination: - Constitutional Appears: Non-toxic, No Acute Distress - Eye Exam Eye Exam: EOMI - ENT Exam ENT Exam: Mucous Membranes Moist - Respiratory Exam Respiratory Exam: Clear to Auscultation Bilateral, NORMAL BREATHING PATTERN - Cardiovascular Exam Cardiovascular Exam: Tachycardia, +S1, +S2 - GI/Abdominal Exam GI & Abdominal Exam: Soft, non-tender. absent: Distended, Firm, Guarding, Rebound, Rigid - Extremities Exam Extremities exam: Negative for: pedal edema, tenderness - Neurological Exam Neurological exam: Alert, Oriented x3 - Psychiatric Exam Psychiatric exam: Normal Affect, Normal Mood - Skin Skin Exam: Dry, Normal Color, Warm Assessment and Plan: Patient is a 82 year old female with a past medical history of GERD, asthma, diverticulosis, internal hemorrhoids, and colonic polyps who was admitted for evaluation and treatment of abdominal pain. -RLQ lesion likely uterine fibroid based on imaging -Anemia- stable, No evidence of active GI bleed Imaging Studies Reviewed: 10/15/2017 colonoscopy revealed diverticulosis of the entire examined colon, bleeding internal hemorrhoids, one 8mm polyp in the transverse colon and one 5mm polyp in the sigmoid colon. Both tubular adenoma on pathology. 09/27/2018 CT abdomen and pelvis with oral and IV contrast-1. The proximal appendix is identified and normal in caliber however the entire appendix is not well delineated. There is abnormal soft tissue at the base of the cecum in the right lower quadrant and extending to the right adnexa with extensive surrounding inflammatory changes. 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 2. Fibroid uterus. 3. extensive colonic diverticulosis without CT evidence for acute diverticulitis MRI pelvis with and without IV contrast- uterine fibroids including large left neck sided exophytic fibroid, mural thickening and enhancement of the terminal ileum, left sided inguinal hernia with a small amount of edema and herniated fat 10/01/2018 CT guided biopsy- awaiting path report - continue on regular diet - await path report on bx- clinically does not represent IBD - recommend celiac disease profile and IBD serology - recommend elective colonoscopy evaluation with the terminal ileal intubation - continue meropenem 1gm IV q12h as per ID Patient case discussed with and plan approved by attending physician, Dr. Campos. Objective - Vital Signs/Intake and Output Vital Signs (last 24 hours): Temp Pulse Resp BP Pulse Ox 98.2 F 82 22 138/71 97 10/02/18 08:04 10/02/18 08:04 10/02/18 08:04 10/02/18 08:04 10/02/18 08:04 Intake and Output: 10/02/18 10/02/18 06:59 18:59 Intake Total 1000 Balance 1000 - Medications Medications: Current Medications Acetaminophen (Tylenol 325mg Tab) 650 mg PO Q6H PRN PRN Reason: Fever >100.4 F Albuterol/Ipratropium (Duoneb 3 Mg/0.5 Mg (3 Ml) Ud) 3 ml IH [id number] PRN PRN Reason: Shortness of Breath Last Admin: 10/01/18 21:48 Dose: 3 ml Ascorbic Acid (Vitamin C 500 Mg Tab) 500 mg PO DAILY [facility] Last Admin: 10/01/18 09:11 Dose: 500 mg Cholecalciferol (Vitamin D) 1,000 intlu PO DAILY [facility] Last Admin: 10/01/18 09:11 Dose: 1,000 intlu Docusate Sodium (Colace) 100 mg PO DAILY [facility] Last Admin: 10/01/18 09:12 Dose: 100 mg Hydrochlorothiazide (Hydrodiuril) 25 mg PO DAILY [facility] Last Admin: 10/01/18 09:06 Dose: 25 mg Meropenem (Merrem Iv 1 Gm Premix) 1 gm in 50 mls @ 100 mls/hr IVPB Q12 [facility]; Protocol Stop: 10/07/18 22:01 Last Admin: 10/01/18 21:36 Dose: 100 mls/hr Losartan Potassium (Cozaar) 25 mg PO DAILY [facility] Last Admin: 10/01/18 09:06 Dose: 25 mg Metoprolol Tartrate (Lopressor) 5 mg IVP Q6H PRN PRN Reason: HR >110 Last Admin: 09/30/18 13:04 Dose: 5 mg Ondansetron HCl (Zofran Inj) 4 mg IVP Q6H PRN PRN Reason: Nausea/Vomiting - Labs Labs: 10/01/18 07:45 10/01/18 07:45 PT 16.4 SECONDS (9.4-12.5) H 09/28/18 11:54 INR 1.45 09/28/18 11:54 APTT 37.8 Seconds (26.9-38.3) 09/28/18 11:54 <Chase Campos V - Last Filed: 10/02/18 21:37> Objective - Vital Signs/Intake and Output Vital Signs (last 24 hours): Temp Pulse Resp BP Pulse Ox 97.6 F 101 H 20 132/71 98 10/02/18 16:42 10/02/18 18:00 10/02/18 16:42 10/02/18 16:42 10/02/18 16:42 - Medications Medications: Current Medications Acetaminophen (Tylenol 325mg Tab) 650 mg PO Q6H PRN PRN Reason: Fever >100.4 F Albuterol/Ipratropium (Duoneb 3 Mg/0.5 Mg (3 Ml) Ud) 3 ml IH [id number] PRN PRN Reason: Shortness of Breath Last Admin: 10/02/18 16:27 Dose: 3 ml Ascorbic Acid (Vitamin C 500 Mg Tab) 500 mg PO DAILY [facility] Last Admin: 10/02/18 10:51 Dose: 500 mg Cholecalciferol (Vitamin D) 1,000 intlu PO DAILY [facility] Last Admin: 10/02/18 10:51 Dose: 1,000 intlu Docusate Sodium (Colace) 100 mg PO DAILY [facility] Last Admin: 10/02/18 10:51 Dose: 100 mg Hydrochlorothiazide (Hydrodiuril) 25 mg PO DAILY [facility] Last Admin: 10/02/18 10:51 Dose: 25 mg Meropenem (Merrem Iv 1 Gm Premix) 1 gm in 50 mls @ 100 mls/hr IVPB Q12 [facility]; Protocol Stop: 10/07/18 22:01 Last Admin: 10/02/18 21:17 Dose: 100 mls/hr Losartan Potassium (Cozaar) 25 mg PO DAILY [facility] Last Admin: 10/02/18 10:51 Dose: 25 mg Metoprolol Tartrate (Lopressor) 5 mg IVP Q6H PRN PRN Reason: HR >110 Last Admin: 10/02/18 10:52 Dose: 5 mg Ondansetron HCl (Zofran Inj) 4 mg IVP Q6H PRN PRN Reason: Nausea/Vomiting - Labs Labs: 10/01/18 07:45 10/01/18 07:45 PT 16.4 SECONDS (9.4-12.5) H 09/28/18 11:54 INR 1.45 09/28/18 11:54 APTT 37.8 Seconds (26.9-38.3) 09/28/18 11:54 Attending/Attestation - Attestation I have personally seen and examined this patient.: Yes I have fully participated in the care of the patient.: Yes I have reviewed all pertinent clinical information, including history, physical exam and plan: Yes Notes (Text): This patient was seen and evaluated along with the medical collector. This is an addendum to the progress note dictated by the resident. Patient is being tolerating diet feels better. Status post right pelvic mass biopsy. MRI showed also thickening in the terminal ileum. Clinically more suggestive of infectious rather than inflammatory. I would recommend continue the antibiotics and complete the course of Elective colonoscopy to evaluate to the terminal ileal thickening. Follow-up of the biopsy report. 10/02/18 21:35
--- NOTE | 2018-10-02 08:47 | CP.PCM.PN ---
<Dillan Mccoy - Last Filed: 10/02/18 08:51> Subjective - Date & Time of Evaluation Date of Evaluation: 10/02/18 Time of Evaluation: 08:44 - Subjective Subjective: SURGERY NOTE FOR DR. GARRIDO 82F seen and examined at bedside. Patient states pain is improved, admits to pain in the right lower quadrant region. denies nausea, vomiting, fevers or chills. Objective - Vital Signs/Intake and Output Vital Signs (last 24 hours): Temp Pulse Resp BP Pulse Ox 98.2 F 82 22 138/71 97 10/02/18 08:04 10/02/18 08:04 10/02/18 08:04 10/02/18 08:04 10/02/18 08:04 Intake and Output: 10/02/18 10/02/18 06:59 18:59 Intake Total 1000 Balance 1000 - Medications Medications: Current Medications Acetaminophen (Tylenol 325mg Tab) 650 mg PO Q6H PRN PRN Reason: Fever >100.4 F Albuterol/Ipratropium (Duoneb 3 Mg/0.5 Mg (3 Ml) Ud) 3 ml IH [id number] PRN PRN Reason: Shortness of Breath Last Admin: 10/01/18 21:48 Dose: 3 ml Ascorbic Acid (Vitamin C 500 Mg Tab) 500 mg PO DAILY [facility] Last Admin: 10/01/18 09:11 Dose: 500 mg Cholecalciferol (Vitamin D) 1,000 intlu PO DAILY [facility] Last Admin: 10/01/18 09:11 Dose: 1,000 intlu Docusate Sodium (Colace) 100 mg PO DAILY [facility] Last Admin: 10/01/18 09:12 Dose: 100 mg Hydrochlorothiazide (Hydrodiuril) 25 mg PO DAILY [facility] Last Admin: 10/01/18 09:06 Dose: 25 mg Meropenem (Merrem Iv 1 Gm Premix) 1 gm in 50 mls @ 100 mls/hr IVPB Q12 [facility]; Protocol Stop: 10/07/18 22:01 Last Admin: 10/01/18 21:36 Dose: 100 mls/hr Losartan Potassium (Cozaar) 25 mg PO DAILY [facility] Last Admin: 10/01/18 09:06 Dose: 25 mg Metoprolol Tartrate (Lopressor) 5 mg IVP Q6H PRN PRN Reason: HR >110 Last Admin: 09/30/18 13:04 Dose: 5 mg Ondansetron HCl (Zofran Inj) 4 mg IVP Q6H PRN PRN Reason: Nausea/Vomiting - Labs Labs: 10/01/18 07:45 10/01/18 07:45 PT 16.4 SECONDS (9.4-12.5) H 09/28/18 11:54 INR 1.45 09/28/18 11:54 APTT 37.8 Seconds (26.9-38.3) 09/28/18 11:54 - Constitutional Appears: Non-toxic, No Acute Distress - Respiratory Exam Respiratory Exam: Clear to Ausculation Bilateral, NORMAL BREATHING PATTERN - Cardiovascular Exam Cardiovascular Exam: REGULAR RHYTHM, +S1, +S2 - GI/Abdominal Exam GI & Abdominal Exam: Soft. absent: Distended, Firm, Guarding, Rigid, Tenderness, Rebound - Extremities Exam Extremities Exam: absent: Pedal Edema, Tenderness - Neurological Exam Neurological Exam: Alert, Awake - Skin Skin Exam: Dry, Intact, Normal Color, Warm Assessment and Plan - Assessment and Plan (Free Text) Assessment: 82F w/ improved abdominal pain 2/2 possible diverticulitis vs nonspecific chronic disease manager mass Patient S/P CT guided biopsy of right adnexa mass Plan: - continue diet - f/u pathology Further recs discuss with Dr. Radhika Mccoy, PGY3 <Chaz Garrido - Last Filed: 10/02/18 19:30> Objective - Vital Signs/Intake and Output Vital Signs (last 24 hours): Temp Pulse Resp BP Pulse Ox 97.6 F 101 H 20 132/71 98 10/02/18 16:42 10/02/18 18:00 10/02/18 16:42 10/02/18 16:42 10/02/18 16:42 - Medications Medications: Current Medications Acetaminophen (Tylenol 325mg Tab) 650 mg PO Q6H PRN PRN Reason: Fever >100.4 F Albuterol/Ipratropium (Duoneb 3 Mg/0.5 Mg (3 Ml) Ud) 3 ml IH [id number] PRN PRN Reason: Shortness of Breath Last Admin: 10/02/18 16:27 Dose: 3 ml Ascorbic Acid (Vitamin C 500 Mg Tab) 500 mg PO DAILY [facility] Last Admin: 10/02/18 10:51 Dose: 500 mg Cholecalciferol (Vitamin D) 1,000 intlu PO DAILY [facility] Last Admin: 10/02/18 10:51 Dose: 1,000 intlu Docusate Sodium (Colace) 100 mg PO DAILY [facility] Last Admin: 10/02/18 10:51 Dose: 100 mg Hydrochlorothiazide (Hydrodiuril) 25 mg PO DAILY [facility] Last Admin: 10/02/18 10:51 Dose: 25 mg Meropenem (Merrem Iv 1 Gm Premix) 1 gm in 50 mls @ 100 mls/hr IVPB Q12 [facility]; Protocol Stop: 10/07/18 22:01 Last Admin: 10/02/18 10:51 Dose: 100 mls/hr Losartan Potassium (Cozaar) 25 mg PO DAILY [facility] Last Admin: 10/02/18 10:51 Dose: 25 mg Metoprolol Tartrate (Lopressor) 5 mg IVP Q6H PRN PRN Reason: HR >110 Last Admin: 10/02/18 10:52 Dose: 5 mg Ondansetron HCl (Zofran Inj) 4 mg IVP Q6H PRN PRN Reason: Nausea/Vomiting - Labs Labs: 10/01/18 07:45 10/01/18 07:45 PT 16.4 SECONDS (9.4-12.5) H 09/28/18 11:54 INR 1.45 09/28/18 11:54 APTT 37.8 Seconds (26.9-38.3) 09/28/18 11:54 Assessment and Plan - Assessment and Plan (Free Text) Plan: Patient was seen, evaluated and examined by me at the bedside. I agree with assessment and plan as stated in the resident's note.
[2018-10-02] MEDS: Albuterol-Ipratrop 3 mg / 0.5 (3 ml) UD IH PRN ×2 (10:08→16:27)
--- NOTE | 2018-10-02 10:37 | CP.PCM.PN ---
<Delfino Roberts - Last Filed: 10/02/18 14:37> Subjective - Date & Time of Evaluation Date of Evaluation: 10/02/18 Time of Evaluation: 07:45 - Subjective Subjective: Delfino Roberts D.O. PGY-3, Internal Medicine Resident, Dr. Matthews's Service, Progress Note 82-year-old female with a past medical history of hypertension, GERD, asthma and previous tubular adenomas who presented originally for abdominal pain of multiple days and was found to have a mass in the right lower quadrant. Patient was seen and examined at bedside. Resting comfortably. Tolerating regular diet. Pain improved. Objective - Vital Signs/Intake and Output Vital Signs (last 24 hours): Temp Pulse Resp BP Pulse Ox 98.2 F 82 22 138/71 97 10/02/18 08:04 10/02/18 08:04 10/02/18 08:04 10/02/18 08:04 10/02/18 08:04 Intake and Output: 10/02/18 10/02/18 06:59 18:59 Intake Total 1000 Balance 1000 - Medications Medications: Current Medications Acetaminophen (Tylenol 325mg Tab) 650 mg PO Q6H PRN PRN Reason: Fever >100.4 F Albuterol/Ipratropium (Duoneb 3 Mg/0.5 Mg (3 Ml) Ud) 3 ml IH [id number] PRN PRN Reason: Shortness of Breath Last Admin: 10/02/18 10:08 Dose: 3 ml Ascorbic Acid (Vitamin C 500 Mg Tab) 500 mg PO DAILY [facility] Last Admin: 10/01/18 09:11 Dose: 500 mg Cholecalciferol (Vitamin D) 1,000 intlu PO DAILY [facility] Last Admin: 10/01/18 09:11 Dose: 1,000 intlu Docusate Sodium (Colace) 100 mg PO DAILY [facility] Last Admin: 10/01/18 09:12 Dose: 100 mg Hydrochlorothiazide (Hydrodiuril) 25 mg PO DAILY [facility] Last Admin: 10/01/18 09:06 Dose: 25 mg Meropenem (Merrem Iv 1 Gm Premix) 1 gm in 50 mls @ 100 mls/hr IVPB Q12 [facility]; Protocol Stop: 10/07/18 22:01 Last Admin: 10/01/18 21:36 Dose: 100 mls/hr Losartan Potassium (Cozaar) 25 mg PO DAILY [facility] Last Admin: 10/01/18 09:06 Dose: 25 mg Metoprolol Tartrate (Lopressor) 5 mg IVP Q6H PRN PRN Reason: HR >110 Last Admin: 09/30/18 13:04 Dose: 5 mg Ondansetron HCl (Zofran Inj) 4 mg IVP Q6H PRN PRN Reason: Nausea/Vomiting - Labs Labs: 10/01/18 07:45 10/01/18 07:45 PT 16.4 SECONDS (9.4-12.5) H 09/28/18 11:54 INR 1.45 09/28/18 11:54 APTT 37.8 Seconds (26.9-38.3) 09/28/18 11:54 - Constitutional Appears: pleasant elderly female, no acute distress - Head Exam Head Exam: ATRAUMATIC, NORMOCEPHALIC - Eye Exam Eye Exam: EOMI. absent: Scleral icterus - ENT Exam ENT Exam: Mucous Membranes Moist, Normal Oropharynx - Neck Exam Neck exam: Positive for: Normal Inspection. Negative for: Lymphadenopathy - Respiratory Exam Respiratory Exam: Clear to Auscultation Bilateral. absent: Rhonchi, Wheezes - Cardiovascular Exam Cardiovascular Exam: +S1, +S2. absent: Gallop, Rubs - GI/Abdominal Exam GI & Abdominal Exam: mildly distended, Normal Bowel Sounds, Soft, mild tenderness over RLQ - Extremities Exam Extremities exam: Negative for: calf tenderness, pedal edema - Neurological Exam Neurological exam: Alert, Oriented x3 - Skin Skin Exam: Dry, Warm Assessment and Plan - Assessment and Plan (Free Text) Assessment: 82-year-old female with a past medical history of hypertension, GERD, asthma and previous tubular adenomas who presented originally for abdominal pain of multiple days and was found to have a mass in the right lower quadrant. Plan: 1. New right-sided abdominal mass with abdominal pain 2. Sepsis likely secondary to pancolitis 3. Normocytic anemiea 4. Hypertension 5. GERD 6. Asthma 7. Vitamin D deficiency Patient is status post right lower quadrant mass biopsy done by interventional radiology. We are pending pathological results. GI service is following, there are no has been reviewed and is appreciated. Surgery is also following, recommendations reviewed and appreciated. Currently patient is on day 5 of meropenem per infectious disease recommendations. Discussed with them. Leukocytosis has resolved. Continue vitamin D supplementation for vitamin D de ficiency and vitamin C supplementation. Continue with as needed nebulizers for asthma. Pain no longer present. Continue stool softeners with docusate. Continue hydrochlorothiazide and losartan for hypertension. Continue to monitor closely. Patient was seen and examined and case was discussed with attending physician. <Angel Matthews - Last Filed: 10/02/18 21:24> Objective - Vital Signs/Intake and Output Vital Signs (last 24 hours): Temp Pulse Resp BP Pulse Ox 97.6 F 101 H 20 132/71 98 10/02/18 16:42 10/02/18 18:00 10/02/18 16:42 10/02/18 16:42 10/02/18 16:42 - Medications Medications: Current Medications Acetaminophen (Tylenol 325mg Tab) 650 mg PO Q6H PRN PRN Reason: Fever >100.4 F Albuterol/Ipratropium (Duoneb 3 Mg/0.5 Mg (3 Ml) Ud) 3 ml IH [id number] PRN PRN Reason: Shortness of Breath Last Admin: 10/02/18 16:27 Dose: 3 ml Ascorbic Acid (Vitamin C 500 Mg Tab) 500 mg PO DAILY [facility] Last Admin: 10/02/18 10:51 Dose: 500 mg Cholecalciferol (Vitamin D) 1,000 intlu PO DAILY [facility] Last Admin: 10/02/18 10:51 Dose: 1,000 intlu Docusate Sodium (Colace) 100 mg PO DAILY [facility] Last Admin: 10/02/18 10:51 Dose: 100 mg Hydrochlorothiazide (Hydrodiuril) 25 mg PO DAILY [facility] Last Admin: 10/02/18 10:51 Dose: 25 mg Meropenem (Merrem Iv 1 Gm Premix) 1 gm in 50 mls @ 100 mls/hr IVPB Q12 [facility]; Protocol Stop: 10/07/18 22:01 Last Admin: 10/02/18 21:17 Dose: 100 mls/hr Losartan Potassium (Cozaar) 25 mg PO DAILY [facility] Last Admin: 10/02/18 10:51 Dose: 25 mg Metoprolol Tartrate (Lopressor) 5 mg IVP Q6H PRN PRN Reason: HR >110 Last Admin: 10/02/18 10:52 Dose: 5 mg Ondansetron HCl (Zofran Inj) 4 mg IVP Q6H PRN PRN Reason: Nausea/Vomiting - Labs Labs: 10/01/18 07:45 10/01/18 07:45 PT 16.4 SECONDS (9.4-12.5) H 09/28/18 11:54 INR 1.45 09/28/18 11:54 APTT 37.8 Seconds (26.9-38.3) 09/28/18 11:54 Assessment and Plan - Assessment and Plan (Free Text) Plan: Pt seen and examined by me. I have reviewed the note of the medical biller and I agree with it. I have discussed the assessment and plan with the resident. I have reviewed the medications and the last labs.
[2018-10-02] MEDS: Cholecalciferol 1,000 INTLU TAB PO SCH (10:51)
[2018-10-02] MEDS: Meropenem IV 1 gm in NS 1 GM/50 ML BAG IVPB SCH ×2 (10:51→21:17)
[2018-10-02] MEDS: Metoprolol 1 mg/ml Inj IVP PRN (10:52)
--- NOTE | 2018-10-02 15:51 | CP.PCM.PN ---
<Casper Meyer - Last Filed: 10/02/18 15:48> Subjective - Date & Time of Evaluation Date of Evaluation: 10/02/18 Time of Evaluation: 09:00 - Subjective Subjective: Infectious disease progress note: Patient seen and examined at bedside. No acute events overnight. No fevers. No complaints. 12 point ROS performed and negative unless stated above. Objective - Vital Signs/Intake and Output Vital Signs (last 24 hours): Temp Pulse Resp BP Pulse Ox 98.2 F 123 H 22 138/71 97 10/02/18 08:04 10/02/18 10:52 10/02/18 08:04 10/02/18 08:04 10/02/18 08:04 Intake and Output: 10/02/18 10/02/18 06:59 18:59 Intake Total 1000 Balance 1000 - Medications Medications: Current Medications Acetaminophen (Tylenol 325mg Tab) 650 mg PO Q6H PRN PRN Reason: Fever >100.4 F Albuterol/Ipratropium (Duoneb 3 Mg/0.5 Mg (3 Ml) Ud) 3 ml IH [id number] PRN PRN Reason: Shortness of Breath Last Admin: 10/02/18 10:08 Dose: 3 ml Ascorbic Acid (Vitamin C 500 Mg Tab) 500 mg PO DAILY [facility] Last Admin: 10/02/18 10:51 Dose: 500 mg Cholecalciferol (Vitamin D) 1,000 intlu PO DAILY [facility] Last Admin: 10/02/18 10:51 Dose: 1,000 intlu Docusate Sodium (Colace) 100 mg PO DAILY [facility] Last Admin: 10/02/18 10:51 Dose: 100 mg Hydrochlorothiazide (Hydrodiuril) 25 mg PO DAILY [facility] Last Admin: 10/02/18 10:51 Dose: 25 mg Meropenem (Merrem Iv 1 Gm Premix) 1 gm in 50 mls @ 100 mls/hr IVPB Q12 [facility]; Protocol Stop: 10/07/18 22:01 Last Admin: 10/02/18 10:51 Dose: 100 mls/hr Losartan Potassium (Cozaar) 25 mg PO DAILY [facility] Last Admin: 10/02/18 10:51 Dose: 25 mg Metoprolol Tartrate (Lopressor) 5 mg IVP Q6H PRN PRN Reason: HR >110 Last Admin: 10/02/18 10:52 Dose: 5 mg Ondansetron HCl (Zofran Inj) 4 mg IVP Q6H PRN PRN Reason: Nausea/Vomiting - Labs Labs: 10/01/18 07:45 10/01/18 07:45 PT 16.4 SECONDS (9.4-12.5) H 09/28/18 11:54 INR 1.45 09/28/18 11:54 APTT 37.8 Seconds (26.9-38.3) 09/28/18 11:54 - Constitutional Appears: No Acute Distress - Head Exam Head Exam: ATRAUMATIC, NORMOCEPHALIC - Eye Exam Eye Exam: EOMI - ENT Exam ENT Exam: Mucous Membranes Moist - Respiratory Exam Respiratory Exam: Clear to Ausculation Bilateral. absent: Wheezes - Cardiovascular Exam Cardiovascular Exam: REGULAR RHYTHM, +S1, +S2 - GI/Abdominal Exam GI & Abdominal Exam: Soft. absent: Tenderness - Extremities Exam Extremities Exam: absent: Calf Tenderness, Pedal Edema - Neurological Exam Neurological Exam: Alert, Awake, Oriented x3 - Psychiatric Exam Psychiatric exam: Normal Mood - Skin Skin Exam: Dry, Warm Assessment and Plan - Assessment and Plan (Free Text) Assessment: Sepsis - Right lower quadrant abdominal pain 2/2 cecal mass versus appendicitis s/p biopsy Hypertension GERD Asthma Continue with meropenem (PCN allergy); upon discharge may change to Cipro and Flagyl for 5-7 days MRI showed fibroid, terminal iliuem wall thickening Cecal mass s/p biopsy awaiting pathology F/u HIV - neg RPR - neg F/u IR recs for RLQ mass / collection - would rec sending out for fungal smear and AFP in addition to the cultures Follow-up blood and urine culture Follow-up further septic work-up Follow-up [facility], surgery and gastroenterology recs Continue to monitor for any changes Case and plan to be reviewed and discussed with Dr. Kong. <Naldo Kong - Last Filed: 10/02/18 16:19> Objective - Vital Signs/Intake and Output Vital Signs (last 24 hours): Temp Pulse Resp BP Pulse Ox 98.2 F 123 H 22 138/71 97 10/02/18 08:04 10/02/18 10:52 10/02/18 08:04 10/02/18 08:04 10/02/18 08:04 Intake and Output: 10/02/18 10/02/18 06:59 18:59 Intake Total 1000 Balance 1000 - Medications Medications: Current Medications Acetaminophen (Tylenol 325mg Tab) 650 mg PO Q6H PRN PRN Reason: Fever >100.4 F Albuterol/Ipratropium (Duoneb 3 Mg/0.5 Mg (3 Ml) Ud) 3 ml IH [id number] PRN PRN Reason: Shortness of Breath Last Admin: 10/02/18 10:08 Dose: 3 ml Ascorbic Acid (Vitamin C 500 Mg Tab) 500 mg PO DAILY [facility] Last Admin: 10/02/18 10:51 Dose: 500 mg Cholecalciferol (Vitamin D) 1,000 intlu PO DAILY [facility] Last Admin: 10/02/18 10:51 Dose: 1,000 intlu Docusate Sodium (Colace) 100 mg PO DAILY [facility] Last Admin: 10/02/18 10:51 Dose: 100 mg Hydrochlorothiazide (Hydrodiuril) 25 mg PO DAILY [facility] Last Admin: 10/02/18 10:51 Dose: 25 mg Meropenem (Merrem Iv 1 Gm Premix) 1 gm in 50 mls @ 100 mls/hr IVPB Q12 [facility]; Protocol Stop: 10/07/18 22:01 Last Admin: 10/02/18 10:51 Dose: 100 mls/hr Losartan Potassium (Cozaar) 25 mg PO DAILY [facility] Last Admin: 10/02/18 10:51 Dose: 25 mg Metoprolol Tartrate (Lopressor) 5 mg IVP Q6H PRN PRN Reason: HR >110 Last Admin: 10/02/18 10:52 Dose: 5 mg Ondansetron HCl (Zofran Inj) 4 mg IVP Q6H PRN PRN Reason: Nausea/Vomiting - Labs Labs: 10/01/18 07:45 10/01/18 07:45 PT 16.4 SECONDS (9.4-12.5) H 09/28/18 11:54 INR 1.45 09/28/18 11:54 APTT 37.8 Seconds (26.9-38.3) 09/28/18 11:54 Attending/Attestation - Attestation I have personally seen and examined this patient.: Yes I have fully participated in the care of the patient.: Yes I have reviewed all pertinent clinical information, including history, physical exam and plan: Yes
[2018-10-02 16:43] VITALS: RESP 20
[2018-10-03] MEDS: Albuterol-Ipratrop 3 mg / 0.5 (3 ml) UD IH PRN ×2 (01:00→09:26)
--- NOTE | 2018-10-03 01:11 | PN ---
DATE: 10/02/2018 The patient was seen and examined. I do agree with the note of the medical scheduler. I was involved in the plan of care. The patient had right side abdominal mass that was biopsied. The patient is awaiting for the results. She had colitis and sepsis; this is improved. She is currently able to ambulate on feet. She is on meropenem for IV antibiotics. We will await for the final results of the pathology report and to decide the patient's discharge. Angel Matthews MD
--- NOTE | 2018-10-03 01:33 | CON ---
DATE: 10/02/2018 REQUESTING PHYSICIAN: Dr. Matthews. REASON FOR CONSULTATION: Tachycardia. HISTORY OF PRESENT ILLNESS: This is an 82-year-old woman with a history of hypertension and asthma, who was admitted with abdominal pain. She was found to have evidence of a right lower quadrant adnexal mass. A recent CT-guided biopsy was performed and results are pending. She has been noted to be tachycardic and has exertional dyspnea and further cardiac evaluation was requested. She is unaware of any prior cardiac problems. She denies any chest pain. PAST MEDICAL HISTORY: Her past history is notable for the problems mentioned above. She also has a history of gastroesophageal reflux disease. CURRENT MEDICATIONS: Her current medications include losartan 25 mg daily, DuoNeb inhaler, hydrochlorothiazide 25 mg daily, IV metoprolol p.r.n., meropenem. ALLERGIES: PENICILLIN. SOCIAL HISTORY: She does not smoke or drink. FAMILY HISTORY: Both parents are from age-related illness. REVIEW OF SYSTEMS: A 12-point review of systems is negative for PND or orthopnea. She has had no edema. PHYSICAL EXAMINATION: GENERAL: She is an elderly woman, who appears comfortable at rest. VITAL SIGNS: Her blood pressure is 138/71, with a pulse of 100-120, in sinus rhythm, with respirations of 16. She is currently afebrile. HEENT: Head is normocephalic, atraumatic. NECK: Supple. No JVD noted. CHEST: Bilateral scattered rhonchi heard. No rales are present. HEART: Reveals PMI to be displaced laterally; the rhythm is regular, but tachycardic. Soft systolic murmur is present at the left sternal border. ABDOMEN: Soft with [id number] right lower quadrant tenderness. Bowel sounds are present. EXTREMITIES: No clubbing, cyanosis, edema. SKIN: Warm and dry. PSYCHIATRIC: Normal mood and affect. NEUROLOGIC: Alert and oriented x3. No gross motor or sensory deficits notable. DIAGNOSTIC DATA: White count 7.9, hemoglobin and hematocrit of 11 and 33.9, with a platelet count of 283,000. PT/PTT 16.4 and 37.8, potassium 3.4, BUN and creatinine are 9 and 0.9. Chest x-ray reveals a normal cardiac silhouette with clear lung ibarra. Electrocardiogram reveals a sinus tachycardia with a possible left atrial abnormality, prior inferior wall myocardial infarction pattern cannot be excluded as well as a prior anterior infarct pattern, a left anterior hemiblock is present. IMPRESSION: 1. Sinus tachycardia, appears physiologic, possibly secondary to intra-abdominal process. 2. History of hypertension. 3. Adnexal mass, biopsy results pending. 4. History of asthma. RECOMMENDATIONS: At this time, there is no need to treat the mild sinus tachycardia, but rather address underlying cause. IV metoprolol does not appear necessary at this time. A baseline echocardiogram will be ordered to assess her left ventricular size and function. Thank you for this consultation. We will be happy to follow along with her hospital course as needed. Ryland Aguiar MD
[2018-10-03 06:02] LABS: BASO # 0.03 K/mm3 (0.0-2.0); BASO % 0.3 % (0.0-3.0); EOS # 0.2 (0.0-0.7); EOS % 2.4 % (1.5-5.0); HEMOGLOBIN 10.5 g/dL (12.0-16.0); LYMPH # 2.1 (1.2-3.4); LYMPH % 20.3 % (22.0-35.0); MEAN CELL VOLUME 93.8 fl (80.0-105.0); MEAN CORPUSCULAR HEMOGLOBIN 29.5 pg (25.0-35.0); MEAN CORPUSCULAR HGB CONC 31.4 g/dl (31.0-37.0); MEAN PLATELET VOLUME 9.8 fl (7.0-11.0); MONO # 0.4 (0.1-0.6); MONO % 3.9 % (1.0-6.0); RBC 3.56 10^6/uL (3.5-6.1); WHITE BLOOD COUNT 10.1 10^3/uL (4.5-11.0)
[2018-10-03 06:55] LABS: ALB/GLOB RATIO 0.9 (1.1-1.8); ALBUMIN 2.8 g/dL (3.0-4.8); ALT/SGPT 23 U/L (7-56); AST/SGOT 36 U/L (14-36); BLOOD UREA NITROGEN 14 mg/dL (7-21); CALCIUM 8.5 mg/dL (8.4-10.5); GFR NON-AFRICAN AMERICAN 60
[2018-10-03 07:02] VITALS: BP 150/77; TEMP 98.2; O2SAT 94
[2018-10-03] MEDS: Cholecalciferol 1,000 INTLU TAB PO SCH (09:41)
[2018-10-03] MEDS: Meropenem IV 1 gm in NS 1 GM/50 ML BAG IVPB SCH ×2 (09:44→12:51)
--- NOTE | 2018-10-03 10:28 | CARD ---
APPROVED REPORT Date of service: 10/02/2018 EXAM: Two-dimensional and M-mode echocardiogram with Doppler and color Doppler. INDICATION Dyspnea 2D DIMENSIONS Left Atrium (2D)4.5 (1.6-4.0cm)IVSd1.0 (0.7-1.1cm) LVDd4.1 (3.9-5.9cm)PWd1.2 (0.7-1.1cm) LVDs2.7 (2.5-4.0cm)FS (%) 34.8 % LVEF (%)64.5 (>50%) M-Mode DIMENSIONS Aortic Root3.00 (2.2-3.7cm)Aortic Cusp Exc.1.80 (1.5-2.0cm) Aortic Valve AoV Peak Odbyzchx222.0cm/sAoV VTI33.5cmAO Peak GR.11mmHg LVOT Peak Uslhhjlw724.0cm/sLVOT VTI22.90cmAO Mean GR.7mmHg AI P 1/2 [id number] Mitral Valve MV E Wmucmmxs86.4cm/sMV A Sgygeqql642.0cm/sMV [id number] E/A ratio0.6MVA (PHT)2.44cm2 TDI Lateral E' Peak V10.50cm/sMedial E' Peak V5.95cm/sE/Lateral E'9.0 E/Medial E'15.9 Pulmonary Valve PV Peak Gsracizi56.1cm/sPV Peak Grad.3mmHg Tricuspid Valve TR Peak [id number]/sRAP [id number] Peak Gr.34mmHg [id number] LEFT VENTRICLE The left ventricle is normal size. There is mild concentric left ventricular hypertrophy. The left ventricular function is normal. The left ventricular ejection fraction is within the normal range. There is normal LV segmental wall motion. Tissue Doppler imaging reveals mild left ventricular diastolic dysfunction. RIGHT VENTRICLE The right ventricle is normal size. The right ventricular systolic function is normal. ATRIA The left atrium is mildly dilated. The right atrium size is normal. The interatrial septum is intact with no evidence for an atrial septal defect. AORTIC VALVE The aortic valve is mildly sclerotic. There is trace to mild aortic regurgitation. There is no aortic valvular stenosis. MITRAL VALVE Mitral annular calcification is mild to moderate. Mitral regurgitation is mild to moderate. TRICUSPID VALVE The tricuspid valve is normal in structure. There is no tricuspid valve regurgitation noted. PULMONIC VALVE The pulmonary valve is normal in structure. GREAT VESSELS The aortic root is normal in size. The IVC is normal in size and collapses >50% with inspiration. PERICARDIAL EFFUSION There is no pleural effusion. There is no pericardial effusion. <Conclusion> Dilated LA. Normal LV size and systolic function. Mild concentric LVH. Mild diastolic dysfunction. Midl to moderate MR. Mild AI.
--- NOTE | 2018-10-03 12:34 | CP.PCM.DIS ---
<RobertsDelfino garcia - Last Filed: 10/03/18 12:31> Provider - Provider Date of Admission: 09/28/18 14:04 Attending physician: Angel Matthews MD Consults: 09/28/18 12:05 General Surgery Consult Stat Comment: Consulting Provider: Chaz Garrido Consulting Physician: Chaz Garrido Reason for Consult: Possible Appendicitis, RLQ mass 09/28/18 14:06 Gastroenterology Consult Routine Comment: Consulting Provider: Chase Campos V Consulting Physician: Chase Campos V Reason for Consult: GI bleed, Appendicitis vs Cecal Mass 09/28/18 17:42 Consult [Physician Consult] Routine Comment: Consulting Provider: Naldo Kong Consulting Physician: Naldo Kong Reason for Consult: elevated WCC 09/29/18 09:47 Consult [Physician Consult] Routine Comment: Consulting Provider: Jonas William Consulting Physician: Jonas William Reason for Consult: RLQ mass vs collection 10/01/18 10:44 Cardiology Consult Routine Comment: multiple pvc Consulting Provider: Ryland Aguiar Consulting Physician: Ryland Aguiar Reason for Consult: multiple pve Time Spent in preparation of Discharge (in minutes): 50 Diagnosis - Discharge Diagnosis (1) Pancolitis Status: Acute (2) Sepsis Status: Acute (3) Leukocytosis Status: Acute (4) Right lower quadrant abdominal mass Status: Acute Hospital Course - Lab Results Lab Results: Micro Results 09/28/18 13:37 Blood Blood Culture - Preliminary NO GROWTH AFTER 4 DAYS 09/28/18 13:00 Blood Blood Culture - Preliminary NO GROWTH AFTER 4 DAYS 09/28/18 13:24 Urine,Clean Catch Urine Culture - Final No Growth (<1,000 CFU/ML) Most Recent Lab Values WBC 10.1 10^3/uL (4.5-11.0) D 10/03/18 05:20 RBC 3.56 10^6/uL (3.5-6.1) 10/03/18 05:20 Hgb 10.5 g/dL (12.0-16.0) L 10/03/18 05:20 Hct 33.4 % (36.0-48.0) L 10/03/18 05:20 MCV 93.8 fl (80.0-105.0) 10/03/18 05:20 MCH 29.5 pg (25.0-35.0) 10/03/18 05:20 MCHC 31.4 g/dl (31.0-37.0) 10/03/18 05:20 RDW 14.0 % (11.5-14.5) 10/03/18 05:20 Plt Count 283 10^3/uL (120.0-450.0) 10/03/18 05:20 MPV 9.8 fl (7.0-11.0) 10/03/18 05:20 Neut % (Auto) 73.1 % (50.0-68.0) H 10/03/18 05:20 Lymph % (Auto) 20.3 % (22.0-35.0) L 10/03/18 05:20 Divide % (Auto) 3.9 % (1.0-6.0) 10/03/18 05:20 Eos % (Auto) 2.4 % (1.5-5.0) 10/03/18 05:20 Baso % (Auto) 0.3 % (0.0-3.0) 10/03/18 05:20 Lymph # (Auto) 2.1 (1.2-3.4) 10/03/18 05:20 Divide # (Auto) 0.4 (0.1-0.6) 10/03/18 05:20 Eos # (Auto) 0.2 (0.0-0.7) 10/03/18 05:20 Baso # (Auto) 0.03 K/mm3 (0.0-2.0) 10/03/18 05:20 Absolute Neuts (auto) 7.39 (1.4-6.5) H 10/03/18 05:20 PT 16.4 SECONDS (9.4-12.5) H 09/28/18 11:54 INR 1.45 09/28/18 11:54 APTT 37.8 Seconds (26.9-38.3) 09/28/18 11:54 pO2 26 mm/Hg (30-55) L 09/28/18 11:50 VBG pH 7.37 (7.32-7.43) 09/28/18 11:50 VBG pCO2 47.0 (40-60) 09/28/18 11:50 VBG HCO3 27.2 mmol/l (21-28) 09/28/18 11:50 VBG Total CO2 28.6 mmol.L (22-28) H 09/28/18 11:50 VBG O2 Sat (Calc) 47.6 % (40-65) 09/28/18 11:50 VBG Base Excess 1.3 mmol/L (0.0-2.0) 09/28/18 11:50 VBG Potassium 3.8 mmol/L (3.6-5.2) 09/28/18 11:50 Sodium 135.0 mmol/L (132-148) 09/28/18 11:50 Chloride 103.0 mmol/L (98-107) 09/28/18 11:50 Glucose 98 mg/dl (65-105) 09/28/18 11:50 Lactate 1.2 mmol/L (0.7-2.1) 09/28/18 11:50 FiO2 21.0 % 09/28/18 11:50 Sodium 143 mmol/L (132-148) 10/03/18 05:20 Potassium 3.7 mmol/L (3.6-5.0) 10/03/18 05:20 Chloride 105 mmol/L (98-107) 10/03/18 05:20 Carbon Dioxide 31 mmol/L (21-33) 10/03/18 05:20 Anion Gap 11 (10-20) 10/03/18 05:20 BUN 14 mg/dL (7-21) 10/03/18 05:20 Creatinine 0.9 mg/dl (0.7-1.2) 10/03/18 05:20 Est GFR ( Amer) > 60 10/03/18 05:20 Est GFR (Non-Af Amer) 60 10/03/18 05:20 Random Glucose 106 mg/dL (70-110) 10/03/18 05:20 Calcium 8.5 mg/dL (8.4-10.5) 10/03/18 05:20 Phosphorus 3.8 mg/dL (2.5-4.5) 10/03/18 05:20 Magnesium 1.9 mg/dL (1.7-2.2) 10/03/18 05:20 Total Bilirubin 0.3 mg/dL (0.2-1.3) 10/03/18 05:20 AST 36 U/L (14-36) 10/03/18 05:20 ALT 23 U/L (7-56) 10/03/18 05:20 Alkaline Phosphatase 58 U/L (38-126) 10/03/18 05:20 Troponin I < 0.01 ng/mL 09/28/18 11:54 Total Protein 6.1 g/dL (5.8-8.3) 10/03/18 05:20 Albumin 2.8 g/dL (3.0-4.8) L 10/03/18 05:20 Globulin 3.2 gm/dL 10/03/18 05:20 Albumin/Globulin Ratio 0.9 (1.1-1.8) L 10/03/18 05:20 Lipase 28 U/L (23-300) 09/28/18 11:54 Venous Blood Potassium 3.8 mmol/L (3.6-5.2) 09/28/18 11:50 Urine Color Yellow (YELLOW) 09/28/18 13:37 Urine Appearance Clear (CLEAR) 09/28/18 13:37 Urine pH 6.0 (4.7-8.0) 09/28/18 13:37 Ur Specific Stringer 1.015 (1.005-1.035) 09/28/18 13:37 Urine Protein Trace mg/dL (<30 mg/dL) H 09/28/18 13:37 Urine Glucose (UA) Negative mg/dL (NEGATIVE) 09/28/18 13:37 Urine Ketones Negative mg/dL (NEGATIVE) 09/28/18 13:37 Urine Blood Trace-lysed (NEGATIVE) H 09/28/18 13:37 Urine Nitrate Negative (NEGATIVE) 09/28/18 13:37 Urine Bilirubin Negative (NEGATIVE) 09/28/18 13:37 Urine Urobilinogen 0.2 E.U./dL (<1 E.U./dL) 09/28/18 13:37 Ur Leukocyte Esterase Trace Stephen/uL (NEGATIVE) H 09/28/18 13:37 Urine RBC 0 - 2 /hpf (0-2) 09/28/18 13:37 Urine WBC 0 - 2 /hpf (0-6) 09/28/18 13:37 Ur Epithelial Cells 1 - 3 /hpf (0-5) 09/28/18 13:37 Urine Bacteria Small /hpf (NONE) 09/28/18 13:37 RPR Nonreactive (NONREACTIVE) 09/29/18 19:00 T.pallidum Ab (FTA-ABS) Nonreactive (Nonreactive) 09/29/18 19:00 HIV 1&2 Ag/Ab, 4th Gen Nonreactive (Nonreactive) 09/29/18 19:00 - Hospital Course Hospital Course: Delfino Roberts D.O. PGY-3, Internal Medicine Resident, Dr. Matthews's Service, Discharge Summary 82-year-old female with a past medical history of hypertension, GERD, asthma and previous tubular adenomas who presented originally for abdominal pain of multiple days and was found to have a mass in the right lower quadrant. Patient had a transvaginal ultrasound which showed fibroid uterus with a dominant 1.9 cm of equals anterior wall fibroid and no evidence for ovarian cyst or mass. Patient had a chest x-ray showed no active pulmonary disease. Patient was evaluated by infectious disease as well as gastroenterology and surgery. Patient was found to be septic and was started on antibiotics meropenem. Patient was evaluated by surgery with no surgical intervention recommended. Patient was seen by gastroenterology who reviewed previous endoscopy done less than a year ago which showed just 2 tubular adenomas. Patient had a pelvis MRI which showed uterine fibroids including and large left-sided exophytic fibroid, mural thickening and enhancement of the terminal ileum most consistent with inflammatory bowel disease, and left-sided inguinal region hernia with a small amount of edema and enhancement of herniated fat. Interventional radiology was consulted and patient had a biopsy of his right lower quadrant mass. Patient had some elevations in her blood pressure which were managed by using her home hydrochlorothiazide 25 mg and losartan [address] of her home telmisartan. Patient's clinical condition slowly improved but she was noted to have multiple PVCs and so cardiology was consulted. Cardiology evaluated the patient and found that on echo she had a normal ejection fraction of 65% with a dilated left atrium, normal LV size and systolic function, mild concentric LVH, mild diastolic dysfunction, mild to moderate MR and mild AI. Cardiology identified her as having sinus tachycardia which was likely secondary to her underlying process which was the priority of management. Patient's pathology has not returned. Patient was seen and examined at bedside this morning and was found to be in a very stable and improved condition. Extensive discussion was had with the patient's and how she will need to follow-up with gastroenterology in order to follow-up for the results of her biopsy. All questions were welcomed and answered. Patient will complete 5 more days of metronidazole and ciprofloxacin. This was discussed with patient. And prescription was written. Clear instructions were given to continue with her home medications. All questions were welcomed and answered to this patient's verbal satisfaction. - Date & Time of H&P Date of H&P: 10/03/18 Time of H&P: 12:00 Discharge Exam - Head Exam Head Exam: ATRAUMATIC, NORMOCEPHALIC - Eye Exam Eye Exam: EOMI. absent: Scleral icterus - ENT Exam ENT Exam: Mucous Membranes Moist, Normal Oropharynx - Neck Exam Neck exam: Normal Inspection - Respiratory Exam Respiratory Exam: Clear to PA & Lateral. absent: Rales, Wheezes - Cardiovascular Exam Cardiovascular Exam: +S1, +S2. absent: Gallop, Rubs - GI/Abdominal Exam GI & Abdominal Exam: Distended (significantly improved), Normal Bowel Sounds, Soft. absent: Tenderness - Extremities Exam Extremities exam: normal capillary refill - Neurological Exam Neurological exam: Alert, Oriented x3 - Psychiatric Exam Psychiatric exam: Normal Affect, Normal Mood - Skin Skin Exam: Dry, Warm Discharge Plan - Discharge Medications Prescriptions: Ciprofloxacin [Cipro] 500 mg PO BID #10 tab Metronidazole [Flagyl] 500 mg PO Q8 #15 tablet - Follow Up Plan Condition: STABLE Disposition: HOME/ ROUTINE Instructions: Colitis, Gastrointestinal Bleeding (DC), Leukocytosis (DC), Leukocytosis (GEN) Additional Instructions: TAKE MEDICATION INSTRUCTED. ANY PAIN, DIZZINESS, BLEEDING, SHORTNESS OF BREATH REPORT TO MD OR GO TO ER. CALL DR. ACOSTA FOR FOLLOW UP APPOINTMENT. Referrals: Chase Campos MD [Medical Doctor] - <Angel Matthews - Last Filed: 10/03/18 16:58> Provider - Provider Date of Admission: 09/28/18 14:04 Attending physician: Angel Matthews MD Consults: 09/28/18 12:05 General Surgery Consult Stat Comment: Consulting Provider: Chaz Garrido Consulting Physician: Chaz Garrido Reason for Consult: Possible Appendicitis, RLQ mass 09/28/18 14:06 Gastroenterology Consult Routine Comment: Consulting Provider: Chase Campos V Consulting Physician: Chase Campos V Reason for Consult: GI bleed, Appendicitis vs Cecal Mass 09/28/18 17:42 Consult [Physician Consult] Routine Comment: Consulting Provider: Naldo Kong Consulting Physician: Naldo Kong Reason for Consult: elevated WCC 09/29/18 09:47 Consult [Physician Consult] Routine Comment: Consulting Provider: Jonas William Consulting Physician: Jonas William Reason for Consult: RLQ mass vs collection 10/01/18 10:44 Cardiology Consult Routine Comment: multiple pvc Consulting Provider: Ryland Aguiar Consulting Physician: Ryland Aguiar Reason for Consult: multiple e Hospital Course - Lab Results Lab Results: Micro Results 09/28/18 13:37 Blood Blood Culture - Final NO GROWTH AFTER 5 DAYS 09/28/18 13:37 Blood Gram Stain - Final TEST NOT PERFORMED 09/28/18 13:00 Blood Blood Culture - Final NO GROWTH AFTER 5 DAYS 09/28/18 13:00 Blood Gram Stain - Final TEST NOT PERFORMED 09/28/18 13:24 Urine,Clean Catch Urine Culture - Final No Growth (<1,000 CFU/ML) Most Recent Lab Values WBC 10.1 10^3/uL (4.5-11.0) D 10/03/18 05:20 RBC 3.56 10^6/uL (3.5-6.1) 10/03/18 05:20 Hgb 10.5 g/dL (12.0-16.0) L 10/03/18 05:20 Hct 33.4 % (36.0-48.0) L 10/03/18 05:20 MCV 93.8 fl (80.0-105.0) 10/03/18 05:20 MCH 29.5 pg (25.0-35.0) 10/03/18 05:20 MCHC 31.4 g/dl (31.0-37.0) 10/03/18 05:20 RDW 14.0 % (11.5-14.5) 10/03/18 05:20 Plt Count 283 10^3/uL (120.0-450.0) 10/03/18 05:20 MPV 9.8 fl (7.0-11.0) 10/03/18 05:20 Neut % (Auto) 73.1 % (50.0-68.0) H 10/03/18 05:20 Lymph % (Auto) 20.3 % (22.0-35.0) L 10/03/18 05:20 Divide % (Auto) 3.9 % (1.0-6.0) 10/03/18 05:20 Eos % (Auto) 2.4 % (1.5-5.0) 10/03/18 05:20 Baso % (Auto) 0.3 % (0.0-3.0) 10/03/18 05:20 Lymph # (Auto) 2.1 (1.2-3.4) 10/03/18 05:20 Divide # (Auto) 0.4 (0.1-0.6) 10/03/18 05:20 Eos # (Auto) 0.2 (0.0-0.7) 10/03/18 05:20 Baso # (Auto) 0.03 K/mm3 (0.0-2.0) 10/03/18 05:20 Absolute Neuts (auto) 7.39 (1.4-6.5) H 10/03/18 05:20 PT 16.4 SECONDS (9.4-12.5) H 09/28/18 11:54 INR 1.45 09/28/18 11:54 APTT 37.8 Seconds (26.9-38.3) 09/28/18 11:54 pO2 26 mm/Hg (30-55) L 09/28/18 11:50 VBG pH 7.37 (7.32-7.43) 09/28/18 11:50 VBG pCO2 47.0 (40-60) 09/28/18 11:50 VBG HCO3 27.2 mmol/l (21-28) 09/28/18 11:50 VBG Total CO2 28.6 mmol.L (22-28) H 09/28/18 11:50 VBG O2 Sat (Calc) 47.6 % (40-65) 09/28/18 11:50 VBG Base Excess 1.3 mmol/L (0.0-2.0) 09/28/18 11:50 VBG Potassium 3.8 mmol/L (3.6-5.2) 09/28/18 11:50 Sodium 135.0 mmol/L (132-148) 09/28/18 11:50 Chloride 103.0 mmol/L (98-107) 09/28/18 11:50 Glucose 98 mg/dl (65-105) 09/28/18 11:50 Lactate 1.2 mmol/L (0.7-2.1) 09/28/18 11:50 FiO2 21.0 % 09/28/18 11:50 Sodium 143 mmol/L (132-148) 10/03/18 05:20 Potassium 3.7 mmol/L (3.6-5.0) 10/03/18 05:20 Chloride 105 mmol/L (98-107) 10/03/18 05:20 Carbon Dioxide 31 mmol/L (21-33) 10/03/18 05:20 Anion Gap 11 (10-20) 10/03/18 05:20 BUN 14 mg/dL (7-21) 10/03/18 05:20 Creatinine 0.9 mg/dl (0.7-1.2) 10/03/18 05:20 Est GFR ( Amer) > 60 10/03/18 05:20 Est GFR (Non-Af Amer) 60 10/03/18 05:20 Random Glucose 106 mg/dL (70-110) 10/03/18 05:20 Calcium 8.5 mg/dL (8.4-10.5) 10/03/18 05:20 Phosphorus 3.8 mg/dL (2.5-4.5) 10/03/18 05:20 Magnesium 1.9 mg/dL (1.7-2.2) 10/03/18 05:20 Total Bilirubin 0.3 mg/dL (0.2-1.3) 10/03/18 05:20 AST 36 U/L (14-36) 10/03/18 05:20 ALT 23 U/L (7-56) 10/03/18 05:20 Alkaline Phosphatase 58 U/L (38-126) 10/03/18 05:20 Troponin I < 0.01 ng/mL 09/28/18 11:54 Total Protein 6.1 g/dL (5.8-8.3) 10/03/18 05:20 Albumin 2.8 g/dL (3.0-4.8) L 10/03/18 05:20 Globulin 3.2 gm/dL 10/03/18 05:20 Albumin/Globulin Ratio 0.9 (1.1-1.8) L 10/03/18 05:20 Lipase 28 U/L (23-300) 09/28/18 11:54 Venous Blood Potassium 3.8 mmol/L (3.6-5.2) 09/28/18 11:50 Urine Color Yellow (YELLOW) 09/28/18 13:37 Urine Appearance Clear (CLEAR) 09/28/18 13:37 Urine pH 6.0 (4.7-8.0) 09/28/18 13:37 Ur Specific Stringer 1.015 (1.005-1.035) 09/28/18 13:37 Urine Protein Trace mg/dL (<30 mg/dL) H 09/28/18 13:37 Urine Glucose (UA) Negative mg/dL (NEGATIVE) 09/28/18 13:37 Urine Ketones Negative mg/dL (NEGATIVE) 09/28/18 13:37 Urine Blood Trace-lysed (NEGATIVE) H 09/28/18 13:37 Urine Nitrate Negative (NEGATIVE) 09/28/18 13:37 Urine Bilirubin Negative (NEGATIVE) 09/28/18 13:37 Urine Urobilinogen 0.2 E.U./dL (<1 E.U./dL) 09/28/18 13:37 Ur Leukocyte Esterase Trace Stephen/uL (NEGATIVE) H 09/28/18 13:37 Urine RBC 0 - 2 /hpf (0-2) 09/28/18 13:37 Urine WBC 0 - 2 /hpf (0-6) 09/28/18 13:37 Ur Epithelial Cells 1 - 3 /hpf (0-5) 09/28/18 13:37 Urine Bacteria Small /hpf (NONE) 09/28/18 13:37 RPR Nonreactive (NONREACTIVE) 09/29/18 19:00 T.pallidum Ab (FTA-ABS) Nonreactive (Nonreactive) 09/29/18 19:00 HIV 1&2 Ag/Ab, 4th Gen Nonreactive (Nonreactive) 09/29/18 19:00 - Hospital Course Hospital Course: Pt seen and examined by me. I have reviewed the note of the medical specialist and I agree with it. I have discussed the assessment and plan with the resident. I have reviewed the medications and the last labs.
[2018-10-03 13:08] VITALS: PULSE 117
--- NOTE | 2018-10-03 14:00 | CP.PCM.PN ---
<Uziel Valles - Last Filed: 10/03/18 13:58> Subjective - Date & Time of Evaluation Date of Evaluation: 10/03/18 Time of Evaluation: 10:40 - Subjective Subjective: Uziel Valles- Internal Medicine Resident-Progress Note on Behalf of Dr. Campos Subjective: Patient seen and examined at bedside. No acute events overnight. Abdominal pain has resolved. Offers no new complaints at this time. Denies nausea, vomiting, diarrhea, bright red blood per rectum, and change in stool caliber. Further denies fever, chills, chest pain, SOB, and urinary symptoms. 12 point ROS negative except as indicated in the HPI Physical Examination: - Constitutional Appears: Non-toxic, No Acute Distress - Eye Exam Eye Exam: EOMI - ENT Exam ENT Exam: Mucous Membranes Moist - Respiratory Exam Respiratory Exam: Clear to Auscultation Bilateral, NORMAL BREATHING PATTERN - Cardiovascular Exam Cardiovascular Exam: Tachycardia, +S1, +S2 - GI/Abdominal Exam GI & Abdominal Exam: Soft, non-tender. absent: Distended, Firm, Guarding, Rebound, Rigid - Extremities Exam Extremities exam: Negative for: pedal edema, tenderness - Neurological Exam Neurological exam: Alert, Oriented x3 - Psychiatric Exam Psychiatric exam: Normal Affect, Normal Mood - Skin Skin Exam: Dry, Normal Color, Warm Assessment and Plan: Patient is a 82 year old female with a past medical history of GERD, asthma, diverticulosis, internal hemorrhoids, and colonic polyps who was admitted for evaluation and treatment of abdominal pain. -RLQ lesion likely uterine fibroid based on imaging -Anemia- stable, No evidence of active GI bleed Imaging Studies Reviewed: 10/15/2017 colonoscopy revealed diverticulosis of the entire examined colon, bleeding internal hemorrhoids, one 8mm polyp in the transverse colon and one 5mm polyp in the sigmoid colon. Both tubular adenoma on pathology. 09/27/2018 CT abdomen and pelvis with oral and IV contrast-1. The proximal appendix is identified and normal in caliber however the entire appendix is not well delineated. There is abnormal soft tissue at the base of the cecum in the right lower quadrant and extending to the right adnexa with extensive surrounding inflammatory changes. 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 2. Fibroid uterus. 3. extensive colonic diverticulosis without CT evidence for acute diverticulitis MRI pelvis with and without IV contrast- uterine fibroids including large left neck sided exophytic fibroid, mural thickening and enhancement of the terminal ileum, left sided inguinal hernia with a small amount of edema and herniated fat 10/01/2018 CT guided biopsy- awaiting path report - continue on regular diet - await path report on bx- clinically does not represent IBD - recommend celiac disease profile and IBD serology - recommend elective colonoscopy evaluation with the terminal ileal intubation for thickening of the terminal ileum - continue abx as per ID Patient case discussed with and plan approved by attending physician, Dr. Campos. Objective - Vital Signs/Intake and Output Vital Signs (last 24 hours): Temp Pulse Resp BP Pulse Ox 98.2 F 117 H 20 150/77 94 L 10/03/18 06:00 10/03/18 10:00 10/03/18 06:00 10/03/18 06:00 10/03/18 06:00 Intake and Output: 10/03/18 10/03/18 06:59 18:59 Intake Total 1440 Output Total 500 Balance 940 - Medications Medications: Current Medications Acetaminophen (Tylenol 325mg Tab) 650 mg PO Q6H PRN PRN Reason: Fever >100.4 F Albuterol/Ipratropium (Duoneb 3 Mg/0.5 Mg (3 Ml) Ud) 3 ml IH [id number] PRN PRN Reason: Shortness of Breath Last Admin: 10/03/18 09:26 Dose: 3 ml Ascorbic Acid (Vitamin C 500 Mg Tab) 500 mg PO DAILY [facility] Last Admin: 10/03/18 09:42 Dose: 500 mg Cholecalciferol (Vitamin D) 1,000 intlu PO DAILY [facility] Last Admin: 10/03/18 09:41 Dose: 1,000 intlu Ciprofloxacin (Cipro) 500 mg PO Q12 [facility]; Protocol Stop: 10/04/18 10:50 Last Admin: 10/03/18 11:03 Dose: 500 mg Docusate Sodium (Colace) 100 mg PO DAILY [facility] Last Admin: 10/03/18 09:42 Dose: 100 mg Hydrochlorothiazide (Hydrodiuril) 25 mg PO DAILY [facility] Last Admin: 10/03/18 09:42 Dose: 25 mg Meropenem (Merrem Iv 1 Gm Premix) 1 gm in 50 mls @ 100 mls/hr IVPB Q12 [facility]EL[facility]; P rotocol Stop: 10/07/18 22:01 Last Admin: 10/03/18 12:51 Dose: Not Given Losartan Potassium (Cozaar) 25 mg PO DAILY [facility] Last Admin: 10/03/18 09:42 Dose: 25 mg Metoprolol Tartrate (Lopressor) 5 mg IVP Q6H PRN PRN Reason: HR >110 Last Admin: 10/02/18 10:52 Dose: 5 mg Metronidazole (Flagyl) 500 mg PO TID [facility]; Protocol Last Admin: 10/03/18 11:03 Dose: 500 mg Ondansetron HCl (Zofran Inj) 4 mg IVP Q6H PRN PRN Reason: Nausea/Vomiting - Labs Labs: 10/03/18 05:20 10/03/18 05:20 PT 16.4 SECONDS (9.4-12.5) H 09/28/18 11:54 INR 1.45 09/28/18 11:54 APTT 37.8 Seconds (26.9-38.3) 09/28/18 11:54 <Beth,Kovil V - Last Filed: 10/04/18 00:17> Objective - Vital Signs/Intake and Output Vital Signs (last 24 hours): Temp Pulse Resp BP Pulse Ox 98.2 F 117 H 20 150/77 94 L 10/03/18 06:00 10/03/18 10:00 10/03/18 06:00 10/03/18 06:00 10/03/18 06:00 - Labs Labs: 10/03/18 05:20 10/03/18 05:20 PT 16.4 SECONDS (9.4-12.5) H 09/28/18 11:54 INR 1.45 09/28/18 11:54 APTT 37.8 Seconds (26.9-38.3) 09/28/18 11:54 Attending/Attestation - Attestation I have personally seen and examined this patient.: Yes I have fully participated in the care of the patient.: Yes I have reviewed all pertinent clinical information, including history, physical exam and plan: Yes Notes (Text): This patient was seen and evaluated along with resident earlier. This is an addendum to the GI progress note dictated by the resident. Complete the antibiotic course. Patient will need colonoscopy in about 4 weeks time to evaluate the terminal ileum 10/04/18 00:16
--- NOTE | 2018-10-03 14:13 | CP.PCM.PN ---
<Casper Meyer - Last Filed: 10/03/18 14:14> Subjective - Date & Time of Evaluation Date of Evaluation: 10/03/18 Time of Evaluation: 08:10 - Subjective Subjective: Infectious disease progress note: Patient seen and examined at bedside. No acute events overnight. No abd pain. No fevers. No other complaints. 12 point ROS performed and negative unless stated above. Objective - Vital Signs/Intake and Output Vital Signs (last 24 hours): Temp Pulse Resp BP Pulse Ox 98.2 F 117 H 20 150/77 94 L 10/03/18 06:00 10/03/18 10:00 10/03/18 06:00 10/03/18 06:00 10/03/18 06:00 Intake and Output: 10/03/18 10/03/18 06:59 18:59 Intake Total 1440 Output Total 500 Balance 940 - Medications Medications: Current Medications Acetaminophen (Tylenol 325mg Tab) 650 mg PO Q6H PRN PRN Reason: Fever >100.4 F Albuterol/Ipratropium (Duoneb 3 Mg/0.5 Mg (3 Ml) Ud) 3 ml IH [id number] PRN PRN Reason: Shortness of Breath Last Admin: 10/03/18 09:26 Dose: 3 ml Ascorbic Acid (Vitamin C 500 Mg Tab) 500 mg PO DAILY [facility] Last Admin: 10/03/18 09:42 Dose: 500 mg Cholecalciferol (Vitamin D) 1,000 intlu PO DAILY [facility] Last Admin: 10/03/18 09:41 Dose: 1,000 intlu Ciprofloxacin (Cipro) 500 mg PO Q12 [facility]; Protocol Stop: 10/04/18 10:50 Last Admin: 10/03/18 11:03 Dose: 500 mg Docusate Sodium (Colace) 100 mg PO DAILY [facility] Last Admin: 10/03/18 09:42 Dose: 100 mg Hydrochlorothiazide (Hydrodiuril) 25 mg PO DAILY [facility] Last Admin: 10/03/18 09:42 Dose: 25 mg Meropenem (Merrem Iv 1 Gm Premix) 1 gm in 50 mls @ 100 mls/hr IVPB Q12 [facility]; Protocol Stop: 10/07/18 22:01 Last Admin: 10/03/18 12:51 Dose: Not Given Losartan Potassium (Cozaar) 25 mg PO DAILY [facility] Last Admin: 10/03/18 09:42 Dose: 25 mg Metoprolol Tartrate (Lopressor) 5 mg IVP Q6H PRN PRN Reason: HR >110 Last Admin: 10/02/18 10:52 Dose: 5 mg Metronidazole (Flagyl) 500 mg PO TID [facility]; Protocol Last Admin: 10/03/18 11:03 Dose: 500 mg Ondansetron HCl (Zofran Inj) 4 mg IVP Q6H PRN PRN Reason: Nausea/Vomiting - Labs Labs: 10/03/18 05:20 10/03/18 05:20 PT 16.4 SECONDS (9.4-12.5) H 09/28/18 11:54 INR 1.45 09/28/18 11:54 APTT 37.8 Seconds (26.9-38.3) 09/28/18 11:54 - Constitutional Appears: No Acute Distress - Head Exam Head Exam: ATRAUMATIC, NORMOCEPHALIC - Eye Exam Eye Exam: EOMI - ENT Exam ENT Exam: Mucous Membranes Moist - Respiratory Exam Respiratory Exam: Clear to Ausculation Bilateral. absent: Rales, Wheezes - Cardiovascular Exam Cardiovascular Exam: REGULAR RHYTHM, +S1, +S2 - GI/Abdominal Exam GI & Abdominal Exam: Soft. absent: Tenderness - Extremities Exam Extremities Exam: absent: Calf Tenderness, Pedal Edema - Neurological Exam Neurological Exam: Alert, Awake - Psychiatric Exam Psychiatric exam: Normal Mood - Skin Skin Exam: Dry, Warm Assessment and Plan - Assessment and Plan (Free Text) Assessment: Sepsis - Right lower quadrant abdominal pain 2/2 cecal mass versus appendicitis s/p biopsy Hypertension GERD Asthma Continue with meropenem (PCN allergy); upon discharge Cipro and Flagyl for 5-7 days Cecal mass s/p biopsy awaiting pathology F/u IR recs for RLQ mass / collection - would rec sending out for fungal smear and AFP in addition to the cultures Follow-up further septic work-up Follow-up PIECE HAND, surgery and gastroenterology recs Continue to monitor for any changes Case and plan to be reviewed and discussed with Dr. Kong. <Naldo Kong - Last Filed: 10/03/18 18:07> Objective - Vital Signs/Intake and Output Vital Signs (last 24 hours): Temp Pulse Resp BP Pulse Ox 98.2 F 117 H 20 150/77 94 L 10/03/18 06:00 10/03/18 10:00 10/03/18 06:00 10/03/18 06:00 10/03/18 06:00 Intake and Output: 10/03/18 10/03/18 06:59 18:59 Intake Total 1440 Output Total 500 Balance 940 - Labs Labs: 10/03/18 05:20 10/03/18 05:20 PT 16.4 SECONDS (9.4-12.5) H 09/28/18 11:54 INR 1.45 09/28/18 11:54 APTT 37.8 Seconds (26.9-38.3) 09/28/18 11:54 Attending/Attestation - Attestation I have personally seen and examined this patient.: Yes I have fully participated in the care of the patient.: Yes I have reviewed all pertinent clinical information, including history, physical exam and plan: Yes
--- NOTE | 2018-10-03 20:21 | PN ---
DATE: 10/03/2018 SUBJECTIVE: The patient is seen lying in bed, on telemetry. She is comfortable at the present time. She continues to have evidence of mild sinus tachycardia. Biopsy results of her adnexal mass remain pending. CURRENT MEDICATIONS: Include Cipro, Cozaar 25 mg daily, DuoNeb inhaler, hydrochlorothiazide 25 mg daily, meropenem. OBJECTIVE: GENERAL: She is a very elderly woman who is comfortable at the present time. VITAL SIGNS: Blood pressure is 150/76 with pulse of 110 in sinus, respirations are 16. She is afebrile. HEENT: No JVD noted. CHEST: Few scattered rhonchi heard. HEART: PMI displaced laterally with systolic murmur at left sternal border. ABDOMEN: Soft, nontender with normoactive bowel sounds. EXTREMITIES: No edema. DIAGNOSTIC DATA: Calcium 3.7, BUN and creatinine 14 and 0.9, white count 10.1, hemoglobin 10.5, hematocrit 33.4, platelet counts 283,000. Echocardiogram is reviewed and shows evidence of left atrium enlargement, normal LV size and systolic function, mild concentric LVH, [id number] mitral regurgitation, mild aortic insufficiency. IMPRESSION: 1. Resting tachycardia, likely physiologic and secondary to other ongoing factors. 2. Adnexal mass. Biopsy results pending. 3. [id number] mitral regurgitation. 4. Rest of problems as noted. RECOMMENDATIONS: No specific therapy for tachycardia is recommended at this time. I will be happy to see her as outpatient as needed. Ryland Aguiar MD
--- NOTE | 2018-10-04 01:26 | DS ---
HOSPITAL COURSE: The patient was seen and examined. I do agree with the note of the certified medical assistant. I was involved in the plan of care. The patient had a right lower quadrant mass, a biopsy was done. I did speak to ID and the patient was cleared for discharge. The patient is going to continue with p.o. Ciprofloxacin and Flagyl. I did start her on these medications. The patient had abdominal pain and the abdominal pain has improved. She had sepsis and the sepsis has resolved as well. The patient is eating well. She has no complaints of any headaches or dizziness. She is going to follow up with her primary care doctor, Dr. Rivera in 1 to 2 weeks after discharge. CONDITION: Stable. ACTIVITY: As tolerated. Angel Matthews MD
== END 2018-10-03 14:52 | disposition home or self-care (01) | DRG 854 ==
LOC: ED 11:26 → ERH 14:04 → 2RNO 16:30 → 3RSO 09-29 11:02 → UNDODISIN 10-01 17:39
PROVIDERS: ADMIT Internal Medicine Nephrology; ATTEND Internal Medicine Nephrology
PROC: 0UB Female Reproductive System, Excision (ICD-10-PCS; principal; 2018-09-30 13:00)
DX: A41.9 Sepsis, unspecified organism (principal); N17.9 Acute kidney failure, unspecified; K51.00 Ulcerative (chronic) pancolitis without complications; R19.03 Right lower quadrant abdominal swelling, mass and lump; K21.9 Gastro-esophageal reflux disease without esophagitis; I10 Essential (primary) hypertension; K57.30 Diverticulosis of large intestine without perforation or abscess without bleeding; D25.0 Submucous leiomyoma of uterus; D64.9 Anemia, unspecified; J45.909 Unspecified asthma, uncomplicated; K64.8 Other hemorrhoids; E87.6 Hypokalemia; I49.3 Ventricular premature depolarization; I34.0 Nonrheumatic mitral (valve) insufficiency; D12.3 Benign neoplasm of transverse colon; D12.5 Benign neoplasm of sigmoid colon; E55.9 Vitamin D deficiency, unspecified; Z88.0 Allergy status to penicillin